=== PATIENT | female | born 1935 | race Caucasian/White ===

== ENCOUNTER 2017-12-16 13:35 | Emergency (ER) | END 2017-12-16 17:18 | disposition home or self-care (01) ==

== ENCOUNTER 2019-02-12 11:37 | Inpatient (IN) | payer MEDICARE, OTHER ==
[~2019-02-12] VITALS: Ht 152.4 cm; Wt 64.0 kg
[~2019-02-12 11:37] MED LIST: AMLO-147 PO; ASPI-650 PO; CALC0.2511 PO; CALC0.255 PO; CARV12.579 PO; CLON-379 PO; GLIP5TAB3 PO; HUM100VI14 SQ; HYDR25TA98 PO; LEVO112C PO; SEVE800T7 PO; SIMV20TA2 PO; [UNRECOGNIZED DRUG - CODE] PO
[2019-02-12] MEDS ORDERED: ONDANSETRON 4 MG INJ IV STA ×2 (12:05→14:41)
[2019-02-12] MEDS ORDERED: SOD CHLORIDE 0.9% 500 ML IV STA (12:05)
[2019-02-12] MEDS ORDERED: PANTOPRAZOLE IV 80 MG in SOD CHLORIDE 0.9% 100 ML IV STA (12:07)
[2019-02-12] MEDS ORDERED: PANTOPRAZOLE IV 80 MG in SOD CHLORIDE 0.9% 100 ML IVPB STA (12:07)
[2019-02-12] MEDS ORDERED: ASPI-817 PO (12:48)
[2019-02-12] MEDS ORDERED: MECL-77 PO (12:48)
[2019-02-12] MEDS ORDERED: AMLO-349 PO (12:48)
[2019-02-12] MEDS ORDERED: ERGO500013 PO (12:49)
[2019-02-12] MEDS ORDERED: CALC500T91 PO (12:50)
[2019-02-12] MEDS ORDERED: SIMV20TA PO (12:51)
[2019-02-12] MEDS ORDERED: SOLI5TAB2 PO (12:51)
[2019-02-12] MEDS ORDERED: NOVO3I SC (12:51)
[2019-02-12] MEDS ORDERED: MIRT30TA5 PO (12:52)
[2019-02-12] MEDS ORDERED: LEVO112T57 PO (12:52)
[2019-02-12] MEDS ORDERED: TRAM50TA PO (12:52)
[2019-02-12] MEDS ORDERED: QUET50TA5 PO (12:53)
[2019-02-12] MEDS ORDERED: GLIP5TAB13 PO (12:54)
[2019-02-12] MEDS ORDERED: CEFEPIME 1GM/50 ML (PMX) 50 ML IVPB ONE (14:00)
--- NOTE | 2019-02-12 14:06 | ERD ---
ER Documentation Chief Complaint Chief Complaint VOMITING FOR THE PAST 2 DAYS WITH BLOOD IN EMESIS HPI This is a 83-year-old female who states she has nausea vomiting for 2 days with red vomit. The patient is a bit of a poor historian but says she has some nausea with vomiting that today he has been pure bright red blood on a few occasions and also has loose stool but no melena or blood in her stool. She is denying any abdominal pain. Patient is a dialysis patient was found to have 100.9 temperature on arrival here however he did go down on its own. ROS All systems reviewed and are negative except as per history of present illness. Medications Home Meds Reported Medications Glipizide* (Glipizide*) 5 Mg Tablet, 5 MG PO AC BREAKFAST, TAB 02/12/19 Quetiapine Fumarate* (Seroquel* XR) 50 Mg Tab.sr.24h, 50 MG PO DAILY, #30 TAB 02/12/19 Mirtazapine* (Mirtazapine*) 30 Mg Tablet, 30 MG PO HS, TAB 02/12/19 Tramadol Hcl* (Ultram*) 50 Mg Tablet, 50 MG PO DAILY PRN for PAIN, TAB 02/12/19 Levothyroxine Sodium* (Levothyroxine Sodium*) 112 Mcg Tablet, 112 MCG PO BEFORE BREAKFAST, #30 TAB 02/12/19 Simvastatin* (Zocor*) 20 Mg Tablet, 20 MG PO QHS, #30 TAB 02/12/19 Solifenacin* (Vesicare*) 5 Mg Tablet, 5 MG PO DAILY, TAB 02/12/19 Insulin Aspart* (Novolog Insulin Pen*) 100 Unit/Ml Soln, 6 UNIT SC WITH MEALS, EA 02/12/19 Calcium Carbonate ([id number]) 500 Mg Tablet, 500 MG PO DAILY, TAB 02/12/19 Ergocalciferol (Vitamin D2) (VITAMIN D2) 50,000 Unit Capsule, 27484 UNIT PO Q7D, CAP 02/12/19 Meclizine Hcl* (Meclizine Hcl*) 25 Mg Tablet, 25 MG PO Q8H PRN for DIZZINESS, TAB 02/12/19 Xjuiegvger-Hkucdslko-VVBG (Exforge HCT) 10-320-25 Mg Tab, 1 EACH PO DAILY, TAB 02/12/19 Aspirin* (Aspirin* EC) 81 Mg Tablet.dr, 81 MG PO DAILY, TAB 02/12/19 Discontinued Reported Medications Insulin Human Isophan/Regular (Novolin 70/30) 100 Units/Ml Susp, 7 UNITS SQ BID 03/13/12 Sevelamer Carbonate* (Renvela*) 800 Mg Tablet, 800 MG PO TID 03/13/12 Glipizide* (Glucotrol*) 5 Mg Tablet, 5 MG PO DAILY 03/13/12 Calcitriol* (Rocaltrol*) 0.25 Mcg Capsule, 0.25 MCG PO DAILY 03/13/12 Captopril (Capoten) 12.5 Mg Tablet, 12.5 MG PO Q8 03/13/12 Levothyroxine Sodium (Tirosint) 112 Mcg Capsule, 112 MCG PO DAILY 10/01/11 Amlodipine Besylate* (Amlodipine Besylate*) 10 Mg Tablet, 10 MG PO DAILY 10/01/11 Calcitriol* (Calcitriol*) 0.25 Mcg Capsule, 0.25 MCG PO DAILY 08/01/11 Hydralazine Hcl* (Hydralazine Hcl*) 25 Mg Tablet, 50 MG PO BID, 0 Refills 08/01/11 Carvedilol* (Carvedilol*) 12.5 Mg Tablet, 12.5 MG PO BID 08/01/11 Aspirin (Aspirin) 81 Mg Tablet, 81 MG PO DAILY 08/01/11 Simvastatin (Simvastatin) 20 Mg Tablet, 20 MG PO QHS 08/01/11 Clonidine Hcl* (Clonidine Hcl*) 0.1 Mg Tab, 0.1 MG PO BID 08/01/11 Allergies Allergies: Coded Allergies: vancomycin (Verified Allergy, Unknown, Rash all over body, 02/12/19) PMhx/Soc History of Surgery: No Anesthesia Reaction: No Hx Neurological Disorder: No Hx Respiratory Disorders: No Hx Cardiac Disorders: No Hx Psychiatric Problems: No Hx Miscellaneous Medical Probl: Yes (ESRD-HD, HTN, Cholesterol) Hx Alcohol Use: No Hx Substance Use: No Hx Tobacco Use: No Smoking Status: Never smoker FmHx Family History: No coronary disease Physical Exam Vitals Vital Signs Date Temp Pulse Resp B/P (MAP) Pulse Ox O2 O2 Flow FiO2 Time Delivery Rate 02/12/19 95 20 126/54 100 Nasal 2.0 14:01 (78) Cannula 02/12/19 94 20 110/49 100 Nasal 13:14 (69) Cannula 02/12/19 97.8 105 18 122/55 97 11:42 (77) Physical Exam Const: Well-developed, well-nourished Head: Atraumatic, normocephalic Eyes: Normal Conjunctiva, PERRLA, EOMI, normal sclera, no nystagmus ENT: Normal External Ears, Nose and Mouth, moist mucus membranes. Neck: Full range of motion. No meningismus, no lymphadenopathy. Resp: Clear to auscultation bilaterally, no wheezing, rhonchi, rales Cardio: Regular rate and rhythm, no murmurs, S1 S2 present Abd: Soft, non tender x 4, non distended. Normal bowel sounds, no guarding or rebound, no pulsitile abdominal masses or bruits Skin: No petechiae or rashes, no ecchymosis , no maculopapular rash Back: No midline or flank tenderness Ext: No cyanosis, or edema, FROM x 4, normal inspection, neurovascularly intact x 4 Neur: Awake and alert, STR 5/5 x 4, sensation intact x 4, no focal findings, cerebellum intact Psych: Normal Mood and Affect Result Diagram: 02/12/19 1220 02/12/19 1220 Results 24 hrs Laboratory Tests Test 02/12/19 12:18 02/12/19 12:20 Urine Color NICOLE Urine Clarity CLOUDY Urine pH 5.0 Urine Specific [place] 1.018 Urine Ketones TRACE mg/dL Urine Nitrite NEGATIVE mg/dL Urine Bilirubin 1+ mg/dL Urine Urobilinogen 2+ mg/dL Urine Leukocyte Esterase 2+ Kareem/ul Urine Microscopic RBC 1 /HPF Urine Microscopic WBC 90 /HPF Urine Squamous Epithelial Cells FEW /HPF Urine Bacteria FEW /HPF Urine Mucus FEW /HPF Urine Hemoglobin 1+ mg/dL Urine Glucose NEGATIVE mg/dL Urine Total Protein 3+ mg/dl White Blood Count 12.7 10^3/ul Red Blood Count 3.63 10^6/ul Hemoglobin 10.4 g/dl Hematocrit 34.1 % Mean Corpuscular Volume 93.9 fl Mean Corpuscular Hemoglobin 28.7 pg Mean Corpuscular Hemoglobin Concent 30.5 g/dl Red Cell Distribution Width 15.6 % Platelet Count 339 10^3/UL Mean Platelet Volume 10.4 fl Immature Granulocytes % 0.600 % Neutrophils % 80.4 % Lymphocytes % 7.5 % Monocytes % 10.3 % Eosinophils % 0.6 % Basophils % 0.6 % Nucleated Red Blood Cells % 0.0 /100WBC Immature Granulocytes # 0.080 10^3/ul Neutrophils # 10.2 10^3/ul Lymphocytes # 1.0 10^3/ul Monocytes # 1.3 10^3/ul Eosinophils # 0.1 10^3/ul Basophils # 0.1 10^3/ul Nucleated Red Blood Cells # 0.0 10^3/ul Prothrombin Time 13.7 Sec Prothrombin Time Ratio 1.1 INR International Normalized Ratio 1.04 Activated Partial Thromboplast Time 25.3 Sec Sodium Level 148 mmol/L Potassium Level 3.6 mmol/L Chloride Level 95 mmol/L Carbon Dioxide Level 38 mmol/L Anion Gap 15 Blood Urea Nitrogen 57 mg/dl Creatinine 4.63 mg/dl Est Glomerular Filtrat Rate mL/min mL/min Glucose Level 133 mg/dl Calcium Level 9.8 mg/dl Total Bilirubin 0.3 mg/dl Direct Bilirubin 0.00 mg/dl Indirect Bilirubin 0.3 mg/dl Aspartate Amino Transf (AST/SGOT) 23 IU/L Alanine Aminotransferase (ALT/SGPT) 16 IU/L Alkaline Phosphatase 73 IU/L Total Protein 7.5 g/dl Albumin 3.4 g/dl Globulin 4.10 g/dl Albumin/Globulin Ratio 0.82 Lipase 13 U/L Current Medications Medications Dose Sig/Tom Start Time Status Last (Trade) Ordered Route PRN Stop Time Admin Dose Reason Admin Sodium 500 ml @ Q1H STAT 02/12/19 DC 02/12/19 Chloride 500 mls/hr IV 12:05 12:27 02/12/19 13:04 Ondansetron 4 mg ONCE STAT 02/12/19 DC 02/12/19 HCl (Zofran IV 12:05 12:27 Inj) 02/12/19 12:08 Pantoprazole 100 ml @ ONCE STAT 02/12/19 DC 02/12/19 80 mg/Sodium 400 mls/hr IVPB 12:07 13:13 Chloride 02/12/19 12:21 Pantoprazole 100 ml @ ONCE STAT 02/12/19 02/12/19 80 mg/Sodium 10 mls/hr IV 12:07 13:13 Chloride 02/12/19 22:06 Cefepime HCl 50 ml @ ONCE ONCE 02/12/19 02/12/19 100 mls/hr IVPB 14:00 13:59 02/12/19 14:29 Procedures/MDM I did draw blood cultures and give a dose of cefepime. The patient does have UTI and the small amount of urine that she does make. She was started on Protonix IV bolus and drip.. I spoke with her primary care physician said to admit her to the hospital and consult GI. We will admit for upper GI bleed, UTI Departure Diagnosis: Primary Impression: Upper GI bleed Additional Impression: UTI (urinary tract infection) Urinary tract infection type: acute cystitis Hematuria presence: without hematuria Qualified Codes: N30.00 - Acute cystitis without hematuria Condition: Stable SANDEEP APARICIO DO February 12, 2019 14:06
[2019-02-12] MEDS ORDERED: SOD CHLORIDE 0.9% 1,000 ML IV SCH (14:07)
[2019-02-12] MEDS ORDERED: ONDANSETRON 4 MG INJ IV PRN ×2 (14:30→16:30)
[2019-02-12] MEDS ORDERED: ACETAMINOPHEN 325 MG TAB PO PRN (14:30)
[2019-02-12] MEDS ORDERED: morphine 4 MG/ML VIAL IV STA (14:41)
[2019-02-12 15:35] VITALS: BP 122/58; PULSE 91
[2019-02-12 15:41] VITALS: Ht 152.4 cm; Wt 64.0 kg
[2019-02-12 15:46] VITALS: PULSE 92
[2019-02-12 16:13] VITALS: PULSE 91
[2019-02-12] MEDS ORDERED: DEXTROSE 50% 50 ML SYRINGE IV PRN ×2 (17:00)
[2019-02-12] MEDS ORDERED: GLUCOSE GEL 15 GRAM TUBE BUCCAL PRN (17:00)
[2019-02-12] MEDS ORDERED: GLUCOSE GEL 15 GRAM TUBE PO PRN ×2 (17:00)
[2019-02-12] MEDS ORDERED: GLUCAGON 1 MG INJ IM PRN (17:00)
[2019-02-12] MEDS: INSULIN ASPART [NOVOLOG] 3 ML PEN SC SCH ×2 (18:00→21:00)
--- NOTE | 2019-02-12 18:41 | CONS ---
DATE OF ADMISSION: 02/12/2019 DATE OF CONSULTATION: TYPE OF CONSULTATION: Gastroenterology. HISTORY OF PRESENT ILLNESS: The patient is an 83-year-old female who came to the hospital complainin g of nausea and vomiting. This has been going on for 2 days. Vomitus was coffee-ground colored mate rial and black color. She never drinks coffee. The patient had a loose stool, but no melena, no hem atochezia. She has had some abdominal pain as per the son. 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 REVIEW OF SYSTEMS: Otherwise negative. MEDICATIONS: Reviewed. The patient was on; 1. Glipizide. 2. Aspirin. 3. Amlodipine. 4. Ultram. 5. Insulin. 6. L-thyroxine. 7. Hydralazine. 8. Simvastatin. 9. Clonidine. ALLERGIES: NONE. PAST MEDICAL HISTORY: End-stage renal disease, hypertension, high cholesterol. The patient is on di alysis. SOCIAL HISTORY: Does not smoke or drink. PHYSICAL EXAMINATION: GENERAL: Moderately built, nourished, not in distress. VITAL SIGNS: Stable. HEENT: Unremarkable. NECK: Supple. No thyromegaly, no lymphadenopathy. CARDIOVASCULAR: No murmur, gallop or click. LUNGS: Clear. ABDOMEN: Benign. EXTREMITIES: No edema. On the left arm, she has got a shunt. CENTRAL NERVOUS SYSTEM: Grossly within normal limits. LABORATORY DATA: Potassium was 3.6, creatinine 4.63. Rest of the LFTs within normal limits. Hemato crit is 34, WBC is 12.7. IMPRESSION: 1. Upper gastrointestinal bleeding. 2. Diabetes mellitus. 3. Renal failure. 4. Hypertension. PLAN: Continue PPI. We will proceed with EGD in a.m. I discussed with the son and has agreed for t he procedure. In the interim, monitor H and H closely. Thank you, Dr. Cohen for your kind referral. Dictated By: SHA MANN/CORAZON Conf#: [id number] DID#: [id number] CC: ROCIO COHEN MD;*EndCC*
[2019-02-12 19:48] VITALS: BP 116/57; PULSE 84
[2019-02-12 20:00] VITALS: PULSE 83
[2019-02-12 23:51] VITALS: BP 110/53; PULSE 84
[2019-02-13] VITALS (18 sets, daily range): BP systolic 94–126; BP diastolic 43–62; PULSE 84–160; RESP 18–24
[2019-02-13] MEDS: INSULIN ASPART [NOVOLOG] 3 ML PEN SC SCH ×6 (01:00→21:46)
[2019-02-13] MEDS: PANTOPRAZOLE 40 MG INJ IV SCH (05:36)
--- NOTE | 2019-02-13 07:52 | PREAC ---
Date/Time of Note Date/Time of Note DATE: 02/13/19 TIME: 07:49 Anesthesia Eval and Record Evaluation Time Pre-Procedure Interview DATE: 02/13/19 TIME: 07:49 Age 83 Sex female NPO: 8 hrs Preoperative diagnosis GI bleeding Planned procedure EGD Past Medical History Past Medical History: Includes Cardio: Dyslipidemia Endo: Diabetes, Hypothyroid Pulm: COPD Renal: ESRD on dialysis, HD last: Surgery & Anesthesia Issues No known issue Meds Anticoagulation: Yes Beta Jeffrey within 24 hr: No Reason Beta Jeffrey not given: Pt. not on B-Jeffrey Reported Medications Glipizide* (Glipizide*) 5 Mg Tablet, 5 MG PO AC BREAKFAST, TAB 02/12/19 Quetiapine Fumarate* (Seroquel* XR) 50 Mg Tab.sr.24h, 50 MG PO DAILY, #30 TAB 02/12/19 Mirtazapine* (Mirtazapine*) 30 Mg Tablet, 30 MG PO HS, TAB 02/12/19 Tramadol Hcl* (Ultram*) 50 Mg Tablet, 50 MG PO DAILY PRN for PAIN, TAB 02/12/19 Levothyroxine Sodium* (Levothyroxine Sodium*) 112 Mcg Tablet, 112 MCG PO BEFORE BREAKFAST, #30 TAB 02/12/19 Simvastatin* (Zocor*) 20 Mg Tablet, 20 MG PO QHS, #30 TAB 02/12/19 Solifenacin* (Vesicare*) 5 Mg Tablet, 5 MG PO DAILY, TAB 02/12/19 Insulin Aspart* (Novolog Insulin Pen*) 100 Unit/Ml Soln, 6 UNIT SC WITH MEALS, EA 02/12/19 Calcium Carbonate ([id number]) 500 Mg Tablet, 500 MG PO DAILY, TAB 02/12/19 Ergocalciferol (Vitamin D2) (VITAMIN D2) 50,000 Unit Capsule, 68817 UNIT PO Q7D, CAP 02/12/19 Meclizine Hcl* (Meclizine Hcl*) 25 Mg Tablet, 25 MG PO Q8H PRN for DIZZINESS, TAB 02/12/19 Kxnbwayszc-Njcdkadej-TKFZ (Exforge HCT) 10-320-25 Mg Tab, 1 EACH PO DAILY, TAB 02/12/19 Aspirin* (Aspirin* EC) 81 Mg Tablet.dr, 81 MG PO DAILY, TAB 02/12/19 Discontinued Reported Medications Insulin Human Isophan/Regular (Novolin 70/30) 100 Units/Ml Susp, 7 UNITS SQ BID 03/13/12 Sevelamer Carbonate* (Renvela*) 800 Mg Tablet, 800 MG PO TID 03/13/12 Glipizide* (Glucotrol*) 5 Mg Tablet, 5 MG PO DAILY 03/13/12 Calcitriol* (Rocaltrol*) 0.25 Mcg Capsule, 0.25 MCG PO DAILY 03/13/12 Captopril (Capoten) 12.5 Mg Tablet, 12.5 MG PO Q8 03/13/12 Levothyroxine Sodium (Tirosint) 112 Mcg Capsule, 112 MCG PO DAILY 10/01/11 Amlodipine Besylate* (Amlodipine Besylate*) 10 Mg Tablet, 10 MG PO DAILY 10/01/11 Calcitriol* (Calcitriol*) 0.25 Mcg Capsule, 0.25 MCG PO DAILY 08/01/11 Hydralazine Hcl* (Hydralazine Hcl*) 25 Mg Tablet, 50 MG PO BID, 0 Refills 08/01/11 Carvedilol* (Carvedilol*) 12.5 Mg Tablet, 12.5 MG PO BID 08/01/11 Aspirin (Aspirin) 81 Mg Tablet, 81 MG PO DAILY 08/01/11 Simvastatin (Simvastatin) 20 Mg Tablet, 20 MG PO QHS 08/01/11 Clonidine Hcl* (Clonidine Hcl*) 0.1 Mg Tab, 0.1 MG PO BID 08/01/11 Current Medications Pantoprazole (Protonix Iv) 40 mg DAILY@06 IV Last administered on 02/13/19at 05:36; Admin Dose 40 MG; Start 02/13/19 at 06:00 Ondansetron HCl (Zofran Inj) 4 mg Q6H PRN IV NAUSEA AND/OR VOMITING; Start 02/12/19 at 16:30 Insulin Aspart (Novolog Insulin Pen) NOVOLOG *MODERATE* ALGORI... Q4 SC Last administered on 02/12/19at 18:00; Admin Dose 4 UNIT; Start 02/12/19 at 17:00 Miscellaneous Information 1 ea NOTE XX ; Start 02/12/19 at 17:00 Glucose (Glutose) 15 gm Q15M PRN PO DECREASED GLUCOSE; Start 02/12/19 at 17:00 Glucose (Glutose) 22.5 gm Q15M PRN PO DECREASED GLUCOSE; Start 02/12/19 at 17:00 Dextrose (D50w Syringe) 25 ml Q15M PRN IV DECREASED GLUCOSE; Start 02/12/19 at 17:00 Dextrose (D50w Syringe) 50 ml Q15M PRN IV DECREASED GLUCOSE; Start 02/12/19 at 17:00 Glucagon (Glucagen) 1 mg Q15M PRN IM DECREASED GLUCOSE; Start 02/12/19 at 17:00 Glucose (Glutose) 15 gm Q15M PRN BUCCAL DECREASED GLUCOSE; Start 02/12/19 at 17:00 Meds reviewed: Yes Allergies Coded Allergies: vancomycin (Verified Allergy, Unknown, Rash all over body, 02/12/19) Allergies Reviewed: Yes Labs/Studies Labs Reviewed: Reviewed by anesthesiologist Result Diagram: 02/13/19 0701 02/12/19 1220 Laboratory Tests 02/12/19 12:20 02/13/19 07:01 test: N/A Studies: ECG Pre-procedure Exam Last vitals Vital Signs Date Temp Pulse Resp B/P (MAP) Pulse Ox O2 O2 Flow FiO2 Time Delivery Rate 02/13/19 98.0 88 105/54 94 Nasal 2.0 04:00 (71) Cannula 02/12/19 20 14:01 Airway: Adequate mouth opening, Adequate thyromental dist Mallampati: Mallampati II Teeth: Normal Lung: Normal Heart: Normal ASA Physical Status ASA physical status: 4 Emergency: None Planned Anesthetic General/MAC: MAC Planned Pain Management Parenteral pain med Pre-operative Attestations Prior to commencing anesthesia and surgery, the patient was re-evaluated, there was verification of: *The patient's identity *The results of appropriate recent lab work and preoperative vital signs *The above evaluation not changing prior to induction *Anesthetic plan, risk benefits, alternative and complications discussed with patient/family; questions answered; patient/family understands, accepts and wishes to proceed. MISTY ANNA MD February 13, 2019 07:52
[2019-02-13] MEDS ORDERED: PROPOFOL 20 ML ONE (07:58)
[2019-02-13] MEDS ORDERED: LIDOCAINE 2% (SDV) 5 ML INJ ONE (08:19)
--- NOTE | 2019-02-13 08:19 | HPN ---
Date/Time of Note Date/Time of Note DATE: 02/13/19 TIME: 08:19 Interval H&P Admission Note Pt. seen H&P reviewed: No system changes SHA ROSS MD February 13, 2019 08:19
--- NOTE | 2019-02-13 08:31 | PAC ---
Date/Time of Note Date/Time of Note DATE: 02/13/19 TIME: 08:29 Post-Anesthesia Notes Post-Anesthesia Note Last documented vital signs Vital Signs Date Temp Pulse Resp B/P (MAP) Pulse Ox O2 O2 Flow FiO2 Time Delivery Rate 02/13/19 99 08:15 02/13/19 98.0 105/54 94 Nasal 2.0 04:00 (71) Cannula 02/12/19 20 14:01 Activity: WNL Respiratory function: WNL Cardiovascular function: WNL Mental status: Baseline Pain reasonably controlled: Yes Hydration appropriate: Yes Nausea/Vomiting absent: Yes Comments BP:97/62, P:94, Spo2:100%, T:98,2 MISTY ANNA MD February 13, 2019 08:31
--- NOTE | 2019-02-13 09:20 | CONS ---
DATE OF ADMISSION: 02/12/2019 DATE OF CONSULTATION: 02/13/2019 TYPE OF CONSULTATION: Nephrology. PHYSICIAN REQUESTING CONSULT: Caden Cohen MD HISTORY OF PRESENT ILLNESS: This is an 83-year-old female with a past medical history of end-stage r enal disease on dialysis 3 times weekly, access AV fistula, history of diabetes, history of hypertens ion, history of coronary artery disease, history of mineral bone disorder who [facility] with 2 days of hematemesis. The patient is a poor historian. Per medical records, the pat ient was having bloody emesis. Denied any melena. She denied any abdominal pain. Upon arrival to [facility] Emergency Room, the patient was placed on Protonix drip and admitted to telemetry for evaluation. Overnight, the patient has been stable. There have been no reports of hemoptysis, hematemesis or he matochezia. PAST MEDICAL HISTORY: As stated above, end-stage renal disease, history of hypertension, history of coronary artery disease, history of diabetes, hypothyroidism. PAST SURGICAL HISTORY: Status post AV fistula placement. FAMILY HISTORY: No family history of kidney disease. SOCIAL HISTORY: Does not drink, smoke or do drugs. MEDICATIONS: Have been reviewed. REVIEW OF SYSTEMS: A 14-point review of systems conducted. Pertinent positives stated in HPI, other adan negative. PHYSICAL EXAMINATION: VITAL SIGNS: Blood pressure is 104/54, respirations 16, pulse 115, temperature 98.0. HEENT: Head is normocephalic. NECK: Supple. HEART: Regular rate. LUNGS: Show diminished breath sounds at the base. ABDOMEN: Soft, nontender to palpation without rebound or guarding. EXTREMITIES: Negative for clubbing, cyanosis, no edema. DERMATOLOGIC: No rashes. MUSCULOSKELETAL: No joint effusion. The patient has positive AV fistula on the left upper extremity , positive thrill and bruit. NEUROLOGIC: No focal deficits. LABORATORY DATA: Has been reviewed. ASSESSMENT AND PLAN: This is an 83-year-old female who presents with: 1. End-stage renal disease. The patient is on dialysis Friday, , Friday with access AV f istula. Plan for hemodialysis today. We will dialyze for 3 hours 4k bath, calcium 2.5. 2. Anemia. Monitor hemoglobin and hematocrit levels. Will give Epogen as needed. 3. Mineral bone disorder, monitor calcium and phosphorus levels. 4. Possible GI bleed. 5. Anemia with possible gastrointestinal bleed. The patient is on Protonix drip. We will follow up with gastroenterology, pending possible EGD. Will give Epogen as needed. 6. Mineral bone disorder, monitor calcium and phosphatase levels. 7. History of coronary artery disease. Continue medical management. 8. Hypernatremia. Continue patient on hypertonic fluid. 9. Urinary tract infection. Continue current antibiotic regimen. Thank you, Dr. Cohen, for this interesting consult. It will be a pleasure to follow patient with you throughout the hospital course. Dictated By: TRISTAN OKEEFE DO NR/NTS Conf#: [id number] DID#: [id number] CC: CADEN COHEN MD;*EndCC*
--- NOTE | 2019-02-13 09:38 | HP ---
Date/Time of Note Date/Time of Note DATE: 02/13/19 TIME: 09:29 Assessment/Plan VTE Prophylaxis Risk score (from [facility])>0 risk: 5 SCD applied (from [facility]): Yes SCD contraindicated: other Pharmacological prophylaxis: other Pharm contraindication: bleeding Lines/Catheters IV Catheter Type (from [facility]): Peripheral IV Reason Cath still needed: urinary retention Assessment/Plan Assessment/Plan 1.Upper gi BLEEDING 2.CKD on HD. sceduled HD 02/14/2019 3.S/P TAVR 4.DM type 2 5.HTN with chf 6.Anemia of chronic disease 7.Hx of cva 8.Postcva and senile dementia 9.MD 10.Urinary incontinence 11.Dyslipidemia 12.HX of falls 13.Severe muscular waisting 14.PAD Result Diagram: 02/13/19 0701 02/13/19 0701 Results 24hrs Laboratory Tests Test 02/12/19 12:18 02/12/19 12:20 02/12/19 17:21 02/12/19 19:11 Urine Color NICOLE Urine Clarity CLOUDY A Urine pH 5.0 Urine Specific 1.018 [place] Urine Ketones TRACE A Urine Nitrite NEGATIVE Urine Bilirubin 1+ H Urine Urobilinogen 2+ H Urine Leukocyte 2+ H Esterase Urine Microscopic 1 RBC Urine Microscopic 90 H WBC Urine Squamous FEW Epithelial Cells Urine Bacteria FEW A Urine Mucus FEW A Urine Hemoglobin 1+ H Urine Glucose NEGATIVE Urine Total Protein 3+ H White Blood Count 12.7 #H Red Blood Count 3.63 L Hemoglobin 10.4 L Hematocrit 34.1 L Mean Corpuscular 93.9 Volume Mean Corpuscular 28.7 L Hemoglobin Mean Corpuscular 30.5 L Hemoglobin Concent Red Cell 15.6 H Distribution Width Platelet Count 339 # Mean Platelet Volume 10.4 Immature 0.600 H Granulocytes % Neutrophils % 80.4 H Lymphocytes % 7.5 L Monocytes % 10.3 Eosinophils % 0.6 Basophils % 0.6 Nucleated Red Blood 0.0 Cells % Immature 0.080 H Granulocytes # Neutrophils # 10.2 H Lymphocytes # 1.0 Monocytes # 1.3 H Eosinophils # 0.1 Basophils # 0.1 Nucleated Red Blood 0.0 Cells # Prothrombin Time 13.7 Prothrombin Time 1.1 Ratio INR International 1.04 Normalized Ratio Activated 25.3 Partial Thromboplast Time Sodium Level 148 H Potassium Level 3.6 Chloride Level 95 L Carbon Dioxide Level 38 H Anion Gap 15 H Blood Urea Nitrogen 57 H Creatinine 4.63 H Est Glomerular Filtrat Rate mL/min Glucose Level 133 Calcium Level 9.8 Total Bilirubin 0.3 Direct Bilirubin 0.00 Indirect Bilirubin 0.3 Aspartate Amino 23 Transf (AST/SGOT) Alanine 16 Aminotransferase (AL T/SGPT) Alkaline Phosphatase 73 Total Protein 7.5 Albumin 3.4 Globulin 4.10 H Albumin/Globulin 0.82 Ratio Lipase 13 L Bedside Glucose 205 156 Test 02/12/19 20:16 02/13/19 01:58 02/13/19 05:27 02/13/19 07:01 Bedside Glucose 108 79 119 White Blood Count 7.9 # Red Blood Count 3.24 L Hemoglobin 9.2 L Hematocrit 31.1 L Mean Corpuscular 96.0 Volume Mean Corpuscular 28.4 L Hemoglobin Mean Corpuscular 29.6 L Hemoglobin Concent Red Cell 15.9 H Distribution Width Platelet Count 239 # Mean Platelet Volume 10.4 Immature 1.000 H Granulocytes % Neutrophils % Lymphocytes % Monocytes % Eosinophils % Basophils % Nucleated Red Blood 0.0 Cells % Immature 0.080 H Granulocytes # Neutrophils # Lymphocytes # Monocytes # Eosinophils # Basophils # Nucleated Red Blood Cells # Sodium Level 148 H Potassium Level 4.2 Chloride Level 102 Carbon Dioxide Level 28 # Anion Gap 18 H Blood Urea Nitrogen 73 H Creatinine 5.19 H Est Glomerular Filtrat Rate mL/min Glucose Level 157 Calcium Level 8.5 Total Bilirubin 0.2 Direct Bilirubin 0.00 Indirect Bilirubin 0.2 Aspartate Amino 24 Transf (AST/SGOT) Alanine 25 Aminotransferase (AL T/SGPT) Alkaline Phosphatase 56 Total Protein 6.5 # Albumin 3.0 L Globulin 3.50 H Albumin/Globulin 0.85 Ratio Test 02/13/19 09:26 Bedside Glucose 168 HPI/ROS Admit Date/Time Admit Date/Time February 12, 2019 at 14:07 Hx of Present Illness bloody vomitus x 2 days. PMH/Family/Social Past Medical History Medications Current Medications Pantoprazole (Protonix Iv) 40 mg DAILY@06 IV Last administered on 02/13/19at 05:36; Admin Dose 40 MG; Start 02/13/19 at 06:00 Ondansetron HCl (Zofran Inj) 4 mg Q6H PRN IV NAUSEA AND/OR VOMITING; Start 02/12/19 at 16:30 Insulin Aspart (Novolog Insulin Pen) NOVOLOG *MODERATE* ALGORI... Q4 SC Last administered on 02/12/19at 18:00; Admin Dose 4 UNIT; Start 02/12/19 at 17:00 Miscellaneous Information 1 ea NOTE XX ; Start 02/12/19 at 17:00 Glucose (Glutose) 15 gm Q15M PRN PO DECREASED GLUCOSE; Start 02/12/19 at 17:00 Glucose (Glutose) 22.5 gm Q15M PRN PO DECREASED GLUCOSE; Start 02/12/19 at 17:00 Dextrose (D50w Syringe) 25 ml Q15M PRN IV DECREASED GLUCOSE; Start 02/12/19 at 17:00 Dextrose (D50w Syringe) 50 ml Q15M PRN IV DECREASED GLUCOSE; Start 02/12/19 at 17:00 Glucagon (Glucagen) 1 mg Q15M PRN IM DECREASED GLUCOSE; Start 02/12/19 at 17:00 Glucose (Glutose) 15 gm Q15M PRN BUCCAL DECREASED GLUCOSE; Start 02/12/19 at 17:00 Coded Allergies: vancomycin (Verified Allergy, Unknown, Rash all over body, 02/12/19) Social History Smoking Status: Never smoker Exam/Review of Systems Vital Signs Vitals Vital Signs Date Temp Pulse Resp B/P (MAP) Pulse Ox O2 O2 Flow FiO2 Time Delivery Rate 02/13/19 Nasal 3.0 09:04 Cannula 02/13/19 98 24 96/43 (60) 94 08:56 02/13/19 98.0 04:00 Intake and Output 02/12/19 02/12/19 02/13/19 1414:59 22:59 06:59 IntakeIntake Total 100 ml BalanceBalance 100 ml ROCIO COHEN MD February 13, 2019 09:38
--- NOTE | 2019-02-13 12:55 | CONS ---
DATE OF ADMISSION: 02/12/2019 DATE OF CONSULTATION: 02/13/2019 TYPE OF CONSULTATION: Pulmonary. REASON FOR CONSULTATION: Abnormal x-ray and shortness of breath. Thank you, Dr. Cohen, for this consultation. HISTORY OF PRESENT ILLNESS: This is an 83-year-old lady with multiple medical problems including end -stage renal failure, hemodialysis, admitted for evaluation of upper GI bleeding and anemia, found to have incidental left lower lobe 1.4 cm lung lesion. The patient is a poor historian, but denies any cough, fever, chills, chest pain or palpitations. She is a lifelong nonsmoker. Denies any recent t ravel history. PAST MEDICAL HISTORY: 1. End-stage renal failure, on hemodialysis. 2. Essential hypertension. 3. Anemia of chronic disease. 4. History of cerebrovascular accident. 5. Dementia. 6. Status post TAVR. PHYSICAL EXAMINATION: GENERAL: Well-nourished, well-developed lady, comfortable at rest, talking in full and complete sent ences. VITAL SIGNS: Currently afebrile, pulse is 100, blood pressure 120/59, O2 saturation 95% on 3 L nasal cannula. NECK: Supple. No JVD or lymphadenopathy. CARDIAC: S1, S2. No added sounds or murmurs. CHEST: Diminished air entry bilaterally. ABDOMEN: Soft, nontender. No guarding or rebound. EXTREMITIES: No cyanosis, clubbing or edema. NEUROLOGIC: Grossly intact. No focal deficits. LABORATORY DATA: White count 7.9, hemoglobin 9.2, platelets 239. BUN 73, creatinine 5.19. INR 1.06 . Chest x-ray findings demonstrated. IMPRESSION AND PLAN: 1. Upper gastrointestinal bleed, status post endoscopy. 2. Anemia of chronic disease. 3. End-stage renal failure on hemodialysis. 4. Incidental finding of left lower lobe mass not seen on x-ray from 11/2017. The patient will require: 1. CT chest. 2. Hemodialysis. 3. Serial hemoglobin and hematocrit. 4. Deep vein thrombosis and gastrointestinal prophylaxis. 5. Hemodialysis as tolerated. Dictated By: JONATHAN VANCE MD SV/[facility] Conf#: [id number] DID#: [id number] CC: ROCIO COHEN MD;*EndCC*
--- NOTE | 2019-02-13 19:40 | CONS ---
DATE OF ADMISSION: 02/12/2019 DATE OF CONSULTATION: 02/13/2019 CARDIOLOGY CONSULTATION REFERRING PHYSICIAN: Dr. Cohen REASON FOR EVALUATION: History of BEST, history of hypertension, preoperative assessment. HISTORY OF PRESENT ILLNESS: Ms. Viera is a pleasant 83-year-old woman with history of dementia, hence not a very good historian. History of hypertension, dyslipidemia, history of coronary artery d isease, history of BEST, history of end-stage renal disease on hemodialysis who comes to the hospital now for evaluation of upper GI bleeding with incidental left lower lobe lung lesion. I have been as ked to see patient in consultation for preoperative assessment for likely EGD and colonoscopy which w as already done. I was also asked to follow the patient concurrently for her valvular disease. Curr ently, the patient is in mild degree of heart failure. She does not report any chest pain. Her hemo globin is fairly stable at 9.2. I think for now, conservative therapy is expected. Will continue to adjust medicines as indicated and remove fluid with hemodialysis. PAST MEDICAL HISTORY: 1. Hypertension. 2. Dyslipidemia. 3. Coronary artery disease. 4. History of BEST. 5. History of end-stage renal disease on hemodialysis. 6. History of GI bleed. ALLERGIES: THE PATIENT IS ALLERGIC TO VANCOMYCIN. SOCIAL HISTORY: The patient does not smoke, does not drink, does not use drugs. FAMILY HISTORY: Positive for diabetes and hypertension. MEDICATIONS: 1. Protonix. 2. Insulin on a sliding scale. 3. Ondansetron. REVIEW OF SYSTEMS: CONSTITUTIONAL: No fevers, no chills, no recent weight change. HEENT: No change in vision or hearing. CARDIAC: Chest pain reported now. RESPIRATORY: No shortness of breath. GASTROINTESTINAL: GI bleeding ____. NEUROLOGIC: History of dementia. PSYCHIATRIC: History of depression. PHYSICAL EXAMINATION: VITAL SIGNS: Temperature is 98.3, heart rate is 97, blood pressure is 105/53. GENERAL: She is a well-nourished woman in no acute distress, oriented x1, not really aware of her me dical conditions. HEAD: Normocephalic, atraumatic. Eyes anicteric. NECK: Supple. JVD 6 cm. No lymphadenopathy. HEART: Regular, soft holosystolic murmur. She also has a holosystolic murmur at the base. LUNGS: Coarse at base. ABDOMEN: Distended, bowel sounds are present. There is no hepatosplenomegaly. GENITOURINARY: Intact. EXTREMITIES: Shows 1+ edema. IMAGING: Chest x-ray yesterday shows cardiomegaly with aortic sclerosis. There is an incidental fin ding of 1.4 cm long. There is a minimal congestive changes on the chest x-ray. LABORATORY DATA: White blood cells 7.9, hemoglobin 9.2, platelets 239. INR is 1.4. Sodium 140, pot assium 4.2, BUN 73, creatinine 5.9. ASSESSMENT AND PLAN: 1. History of BETS. The patient with history of BEST appears to be fairly clinically stable on exam ination. Continue to monitor now. 2. Congestive heart failure. The patient with heart failure, probably systolic, acute on chronic. Continue to remove fluid with hemodialysis for anticoagulation. 3. Anemia. History of suspected GI bleed. Full anticoagulation has been stopped. Continue to scooter tor clinically now. 4. Chest pain. Troponins are negative. We will follow expectantly. 5. Hypertension. Blood pressure fairly well controlled now. We will allow current regimen, patient is not on any blood pressure medication at this particular moment. 6. Diabetes. Continue diabetic optimization and care. We will continue to keep euvolemic. I would like to thank Dr. Cohen for referring this patient for my evaluation. Dictated By: ELISABETH DAILEY MD ML/NTS Conf#: [id number] DID#: [id number] CC: ROCIO COHEN MD;*EndCC*
[2019-02-14] VITALS (24 sets, daily range): BP systolic 106–138; BP diastolic 53–80; PULSE 61–176; RESP 18–20
[2019-02-14] MEDS: INSULIN ASPART [NOVOLOG] 3 ML PEN SC SCH ×6 (01:00→21:15)
[2019-02-14] MEDS: PANTOPRAZOLE 40 MG INJ IV SCH (05:22)
[2019-02-14] MEDS ORDERED: EPOETIN ALFA-EPBX (NON-ESRD 10,000 UNIT/ML VIAL SC ONE (08:30)
[2019-02-14] MEDS: ACETAMINOPHEN 500 MG TAB PO PRN (10:15)
[2019-02-14] MEDS ORDERED: morphine 2 MG INJ IV ONE (11:00)
--- NOTE | 2019-02-14 11:40 | CONS ---
Consult Date/Type/Reason Admit Date/Time February 12, 2019 at 14:07 Initial Consult Date Type of Consult Pulmonary Date/Time of Note DATE: 02/14/19 TIME: 11:39 Subjective No significant changes. Patient having hemodialysis this morning no respiratory distress. CT chest noted no definitive mass in left lung. Objective Vital Signs Date Temp Pulse Resp B/P (MAP) Pulse Ox O2 O2 Flow FiO2 Time Delivery Rate 02/14/19 86 11:00 02/14/19 18 135/78 98 Nasal 2.0 10:30 (97) Cannula 02/14/19 98.1 07:38 Intake and Output 02/13/19 02/13/19 02/14/19 1515:00 23:00 07:00 IntakeIntake Total 0 ml 400 ml 100 ml OutputOutput Total 0 ml 0 ml BalanceBalance 0 ml 400 ml 100 ml Exam GENERAL: Elderly [place] lady no respiratory distress VITAL SIGNS: per chart NECK: Supple. No JVD or lymphadenopathy. CARDIAC EXAM: S1, S2. No added sounds or murmurs. CHEST: clear bilaterally, No added sounds, rales or wheezes ABDOMEN: Soft, nontender. No guarding or rebound. EXTREMITIES: No cyanosis, clubbing or edema. NEUROLOGIC: Generalized weakness. No focal deficits. Results/Medications Result Diagram: 02/14/19 0556 02/14/19 0556 Results 24 hrs Laboratory Tests Test 02/13/19 12:53 02/13/19 16:51 02/13/19 20:33 02/14/19 00:51 Bedside Glucose 180 152 156 128 Test 02/14/19 05:25 02/14/19 05:56 02/14/19 08:21 Bedside Glucose 173 139 White Blood Count 11.4 #H Red Blood Count 3.03 L Hemoglobin 8.6 L Hematocrit 28.4 L Mean Corpuscular 93.7 Volume Mean Corpuscular 28.4 L Hemoglobin Mean Corpuscular 30.3 L Hemoglobin Concent Red Cell 15.7 H Distribution Width Platelet Count 205 Mean Platelet Volume 10.6 H Immature 1.600 H Granulocytes % Neutrophils % Segmented 58 Neutrophils % (Manual) Band Neutrophils % 16 H (Manual) Lymphocytes % Lymphocytes % 17 (Manual) Monocytes % Monocytes % (Manual) 6 Eosinophils % Eosinophils % 3 (Manual) Basophils % Nucleated Red Blood 0.0 Cells % Immature 0.180 H Granulocytes # Neutrophils # Neutrophils # 6.8 (Manual) Band Neutrophils # 1.8 H Lymphocytes (Manual) 1.9 Lymphocytes # Monocytes # Monocytes # (Manual) 0.6 Eosinophils # Basophils # Nucleated Red Blood Cells # Platelet Estimate NORMAL Giant Platelets 1 H Polychromasia 1+ Anisocytosis 1+ Sodium Level 145 H Potassium Level 4.2 Chloride Level 99 Carbon Dioxide Level 29 Anion Gap 17 H Blood Urea Nitrogen 89 H Creatinine 6.15 H Est Glomerular Filtrat Rate mL/min Glucose Level 179 Calcium Level 8.1 L Phosphorus Level 4.3 Magnesium Level 2.4 Medications Current Medications Pantoprazole (Protonix Iv) 40 mg DAILY@06 IV Last administered on 02/14/19at 05:22; Admin Dose 40 MG; Start 02/13/19 at 06:00 Ondansetron HCl (Zofran Inj) 4 mg Q6H PRN IV NAUSEA AND/OR VOMITING; Start 02/12/19 at 16:30 Insulin Aspart (Novolog Insulin Pen) NOVOLOG *MODERATE* ALGORI... Q4 SC Last administered on 02/14/19at 05:39; Admin Dose 2 UNIT; Start 02/12/19 at 17:00 Miscellaneous Information 1 ea NOTE XX ; Start 02/12/19 at 17:00 Glucose (Glutose) 15 gm Q15M PRN PO DECREASED GLUCOSE; Start 02/12/19 at 17:00 Glucose (Glutose) 22.5 gm Q15M PRN PO DECREASED GLUCOSE; Start 02/12/19 at 17:00 Dextrose (D50w Syringe) 25 ml Q15M PRN IV DECREASED GLUCOSE; Start 02/12/19 at 17:00 Dextrose (D50w Syringe) 50 ml Q15M PRN IV DECREASED GLUCOSE; Start 02/12/19 at 17:00 Glucagon (Glucagen) 1 mg Q15M PRN IM DECREASED GLUCOSE; Start 02/12/19 at 17:00 Glucose (Glutose) 15 gm Q15M PRN BUCCAL DECREASED GLUCOSE; Start 02/12/19 at 17:00 Acetaminophen (Tylenol Tab) 500 mg Q8H PRN PO MILD PAIN(1-3)OR ELEVATED TEMP Last administered on 02/14/19at 10:15; Admin Dose 500 MG; Start 02/14/19 at 10:00 Assessment/Plan Hospital Course (Demo Recall) IMPRESSION 1. Upper gastrointestinal bleed, status post endoscopy. 2. Anemia of chronic disease. 3. End-stage renal failure on hemodialysis. 4. Incidental finding of left lower lobe mass not seen on x-ray from 11/2017. Not seen on chest CT. Plan 1. Aspiration precautions 2. Hemodialysis. 3. Serial hemoglobin and hematocrit. 4. Deep vein thrombosis and gastrointestinal prophylaxis. 5. Hemodialysis as tolerated. 6. Encourage out of bed JONATHAN VANCE MD, [facility] February 14, 2019 11:40
--- NOTE | 2019-02-14 12:05 | CONS ---
Consult Date/Type/Reason Admit Date/Time February 12, 2019 at 14:07 Initial Consult Date Date/Time of Note DATE: 02/14/19 TIME: 12:02 Subjective NO acute events - BP in good range - pt on HD -reportted to have NSVT 30 beats - I reviewed tele, SVT, likely a. tach vs a. fib with RVR - stable now - will foll ow. ROS: No fever, no chills, no nausea, no vomiting, no diarrhea/constipation No recent weight changes No chest pain, no PND, no orthopnea - mild SOB No dizziness, blurred vision No thirst, no heat or cold intolerance Objective Vitals Vital Signs Date Temp Pulse Resp B/P (MAP) Pulse Ox O2 O2 Flow FiO2 Time Delivery Rate 02/14/19 98.0 85 19 121/56 97 11:44 (77) 02/14/19 Nasal 2.0 10:30 Cannula Intake and Output 02/13/19 02/13/19 02/14/19 1515:00 23:00 07:00 IntakeIntake Total 0 ml 400 ml 100 ml OutputOutput Total 0 ml 0 ml BalanceBalance 0 ml 400 ml 100 ml Exam General: WN/WD/NAD, AOx 1-2 HEENT: Unicetric/atraumatic/EOMI ( follow commands) NECK: JVD elevated, no thyromegaly Lymph: no lymphadenopathy HEART: regular with no S3, II/ systolic murmur at apex, BEST LUNGS: Coarse sounds ABD: soft, NT, ND, +BS : Intact Neuro: non focal SKIN: chronic changes EXT: trace edema Results/Medications Result Diagram: 02/14/19 0556 02/14/19 0556 Results 24 hrs Laboratory Tests Test 02/13/19 12:53 02/13/19 16:51 02/13/19 20:33 02/14/19 00:51 Bedside Glucose 180 152 156 128 Test 02/14/19 05:25 02/14/19 05:56 02/14/19 08:21 Bedside Glucose 173 139 White Blood Count 11.4 #H Red Blood Count 3.03 L Hemoglobin 8.6 L Hematocrit 28.4 L Mean Corpuscular 93.7 Volume Mean Corpuscular 28.4 L Hemoglobin Mean Corpuscular 30.3 L Hemoglobin Concent Red Cell 15.7 H Distribution Width Platelet Count 205 Mean Platelet Volume 10.6 H Immature 1.600 H Granulocytes % Neutrophils % Segmented 58 Neutrophils % (Manual) Band Neutrophils % 16 H (Manual) Lymphocytes % Lymphocytes % 17 (Manual) Monocytes % Monocytes % (Manual) 6 Eosinophils % Eosinophils % 3 (Manual) Basophils % Nucleated Red Blood 0.0 Cells % Immature 0.180 H Granulocytes # Neutrophils # Neutrophils # 6.8 (Manual) Band Neutrophils # 1.8 H Lymphocytes (Manual) 1.9 Lymphocytes # Monocytes # Monocytes # (Manual) 0.6 Eosinophils # Basophils # Nucleated Red Blood Cells # Platelet Estimate NORMAL Giant Platelets 1 H Polychromasia 1+ Anisocytosis 1+ Sodium Level 145 H Potassium Level 4.2 Chloride Level 99 Carbon Dioxide Level 29 Anion Gap 17 H Blood Urea Nitrogen 89 H Creatinine 6.15 H Est Glomerular Filtrat Rate mL/min Glucose Level 179 Calcium Level 8.1 L Phosphorus Level 4.3 Magnesium Level 2.4 Home Meds Reported Medications Glipizide* (Glipizide*) 5 Mg Tablet, 5 MG PO AC BREAKFAST, TAB 02/12/19 Quetiapine Fumarate* (Seroquel* XR) 50 Mg Tab.sr.24h, 50 MG PO DAILY, #30 TAB 02/12/19 Mirtazapine* (Mirtazapine*) 30 Mg Tablet, 30 MG PO HS, TAB 02/12/19 Tramadol Hcl* (Ultram*) 50 Mg Tablet, 50 MG PO DAILY PRN for PAIN, TAB 02/12/19 Levothyroxine Sodium* (Levothyroxine Sodium*) 112 Mcg Tablet, 112 MCG PO BEFORE BREAKFAST, #30 TAB 02/12/19 Simvastatin* (Zocor*) 20 Mg Tablet, 20 MG PO QHS, #30 TAB 02/12/19 Solifenacin* (Vesicare*) 5 Mg Tablet, 5 MG PO DAILY, TAB 02/12/19 Insulin Aspart* (Novolog Insulin Pen*) 100 Unit/Ml Soln, 6 UNIT SC WITH MEALS, EA 02/12/19 Calcium Carbonate (Ynad-Dpu-095) 500 Mg Tablet, 500 MG PO DAILY, TAB 02/12/19 Ergocalciferol (Vitamin D2) (VITAMIN D2) 50,000 Unit Capsule, 77459 UNIT PO Q7D, CAP 02/12/19 Meclizine Hcl* (Meclizine Hcl*) 25 Mg Tablet, 25 MG PO Q8H PRN for DIZZINESS, TAB 02/12/19 Dgtrlzjqky-Fxgyktlcn-EVZS (Exforge HCT) 10-320-25 Mg Tab, 1 EACH PO DAILY, TAB 02/12/19 Aspirin* (Aspirin* EC) 81 Mg Tablet.dr, 81 MG PO DAILY, TAB 02/12/19 Discontinued Reported Medications Insulin Human Isophan/Regular (Novolin 70/30) 100 Units/Ml Susp, 7 UNITS SQ BID 03/13/12 Sevelamer Carbonate* (Renvela*) 800 Mg Tablet, 800 MG PO TID 03/13/12 Glipizide* (Glucotrol*) 5 Mg Tablet, 5 MG PO DAILY 03/13/12 Calcitriol* (Rocaltrol*) 0.25 Mcg Capsule, 0.25 MCG PO DAILY 03/13/12 Captopril (Capoten) 12.5 Mg Tablet, 12.5 MG PO Q8 03/13/12 Levothyroxine Sodium (Tirosint) 112 Mcg Capsule, 112 MCG PO DAILY 10/01/11 Amlodipine Besylate* (Amlodipine Besylate*) 10 Mg Tablet, 10 MG PO DAILY 10/01/11 Calcitriol* (Calcitriol*) 0.25 Mcg Capsule, 0.25 MCG PO DAILY 08/01/11 Hydralazine Hcl* (Hydralazine Hcl*) 25 Mg Tablet, 50 MG PO BID, 0 Refills 08/01/11 Carvedilol* (Carvedilol*) 12.5 Mg Tablet, 12.5 MG PO BID 08/01/11 Aspirin (Aspirin) 81 Mg Tablet, 81 MG PO DAILY 08/01/11 Simvastatin (Simvastatin) 20 Mg Tablet, 20 MG PO QHS 08/01/11 Clonidine Hcl* (Clonidine Hcl*) 0.1 Mg Tab, 0.1 MG PO BID 08/01/11 Medications Current Medications Pantoprazole (Protonix Iv) 40 mg DAILY@06 IV Last administered on 02/14/19at 05:22; Admin Dose 40 MG; Start 02/13/19 at 06:00 Ondansetron HCl (Zofran Inj) 4 mg Q6H PRN IV NAUSEA AND/OR VOMITING; Start 02/12/19 at 16:30 Insulin Aspart (Novolog Insulin Pen) NOVOLOG *MODERATE* ALGORI... Q4 SC Last administered on 02/14/19at 05:39; Admin Dose 2 UNIT; Start 02/12/19 at 17:00 Miscellaneous Information 1 ea NOTE XX ; Start 02/12/19 at 17:00 Glucose (Glutose) 15 gm Q15M PRN PO DECREASED GLUCOSE; Start 02/12/19 at 17:00 Glucose (Glutose) 22.5 gm Q15M PRN PO DECREASED GLUCOSE; Start 02/12/19 at 17:00 Dextrose (D50w Syringe) 25 ml Q15M PRN IV DECREASED GLUCOSE; Start 02/12/19 at 17:00 Dextrose (D50w Syringe) 50 ml Q15M PRN IV DECREASED GLUCOSE; Start 02/12/19 at 17:00 Glucagon (Glucagen) 1 mg Q15M PRN IM DECREASED GLUCOSE; Start 02/12/19 at 17:00 Glucose (Glutose) 15 gm Q15M PRN BUCCAL DECREASED GLUCOSE; Start 02/12/19 at 17:00 Acetaminophen (Tylenol Tab) 500 mg Q8H PRN PO MILD PAIN(1-3)OR ELEVATED TEMP Last administered on 02/14/19at 10:15; Admin Dose 500 MG; Start 02/14/19 at 10:00 Assessment/Plan Hospital Course (Demo Recall) 1. History of BEST. The patient with history of BEST appears to be fairly clinically stable on examination. Continue to monitor now. Stable by exam. 2. Congestive heart failure. The patient with heart failure, probably systolic , acute on chronic. Continue to remove fluid with hemodialysis. Better now. 3. Anemia. History of suspected GI bleed. Full anticoagulation has been stopped. Continue to monitor clinically now. 4. Chest pain. Troponins are negative. We will follow expectantly. 5. Hypertension. Blood pressure fairly well controlled now. We will allow current regimen, patient is not on any blood pressure medication at this particular moment. 6. Diabetes. Continue diabetic optimization and care. We will continue to keep euvolemic. 7. NSVT 30 beats - I reviewed tele, SVT, likely a. tach vs a. fib with RVR - stable now - will follow - not anti-coag with anemia ELISABETH DAILEY MD February 14, 2019 12:05
--- NOTE | 2019-02-14 12:07 | PN ---
DATE: 02/14/2019 SUBJECTIVE: The patient had EGD yesterday, tolerated well. The patient's dialysis was not performed yesterday. No other events noted. OBJECTIVE: VITAL SIGNS: Blood pressure is 121/59, respiration is 18, pulse 77, temperature 98.1. HEENT: Head is normocephalic. NECK: Supple. HEART: Regular rate. LUNGS: Show diminished breath sounds at the base. ABDOMEN: Soft, nontender to palpation without rebound or guarding. EXTREMITIES: Negative for clubbing, cyanosis, no edema. DERMATOLOGIC: No rashes. MUSCULOSKELETAL: No joint effusion. NEUROLOGIC: No change in exam. MEDICATIONS: Have been reviewed. LABORATORY DATA: Has been reviewed. ASSESSMENT AND PLAN: 1. End-stage renal disease. The patient is on dialysis Friday, , Friday with dialysis AV fistula. The patient did not have dialysis yesterday. Plan for dialysis today. 2. Anemia. Monitor hemoglobin and hematocrit levels. Will give Epogen . The patient is status post EGD, evidence of gastritis. 3. Mineral bone disorder. Monitor calcium and phosphorus levels. 4. Coronary artery disease. Continue medical management. 5. Hypernatremia. Continue to encourage free water intake. 6. Gastritis. Patient is status post EGD. Continue proton pump inhibitor. 7. Urinary tract infection. Continue antibiotic regimen. Dictated By: TRISTAN OKEEFE DO NR/NTS Conf#: [id number] DID#: [id number] CC: ROCIO COHEN MD; SHA ROSS MD;*EndCC*
--- NOTE | 2019-02-14 21:28 | CONS ---
Assessment/Plan Assessment/Plan Hospital Course (Demo Recall) 83 yo female with GI bleed, s/p EGD 02/13 Interval hx: HH is decreased. Pt had episode of V tach, follow by Dr Rolle. 1. Upper gastrointestinal bleeding. 2. Diabetes mellitus. 3. Renal failure. 4. Hypertension. 5. Gastritis 6. Esophagitis PLAN: Continue PPI bid Pending pathology Monitor HH and for active gi bleeding, replace prn Pt examined and plan of care discussed with Dr Hurley Consultation Date/Type/Reason Admit Date/Time February 12, 2019 at 14:07 Initial Consult Date Date/Time of Note DATE: 02/14/19 TIME: 21:20 Exam/Review of Systems Exam Vitals Vital Signs Date Temp Pulse Resp B/P (MAP) Pulse Ox O2 O2 Flow FiO2 Time Delivery Rate 02/14/19 96 20:00 02/14/19 98.6 20 116/60 99 20:00 (78) 02/14/19 Nasal 3.0 19:49 Cannula Intake and Output 02/13/19 02/13/19 02/14/19 1515:00 23:00 07:00 IntakeIntake Total 0 ml 400 ml 100 ml OutputOutput Total 0 ml 0 ml BalanceBalance 0 ml 400 ml 100 ml Results Result Diagram: 02/14/19 0556 02/14/19 0556 Results 24hrs Laboratory Tests Test 02/14/19 00:51 02/14/19 05:25 02/14/19 05:56 02/14/19 08:21 Bedside Glucose 128 173 139 White Blood Count 11.4 #H Red Blood Count 3.03 L Hemoglobin 8.6 L Hematocrit 28.4 L Mean Corpuscular 93.7 Volume Mean Corpuscular 28.4 L Hemoglobin Mean Corpuscular 30.3 L Hemoglobin Concent Red Cell 15.7 H Distribution Width Platelet Count 205 Mean Platelet Volume 10.6 H Immature 1.600 H Granulocytes % Neutrophils % Segmented 58 Neutrophils % (Manual) Band Neutrophils % 16 H (Manual) Lymphocytes % Lymphocytes % 17 (Manual) Monocytes % Monocytes % (Manual) 6 Eosinophils % Eosinophils % 3 (Manual) Basophils % Nucleated Red Blood 0.0 Cells % Immature 0.180 H Granulocytes # Neutrophils # Neutrophils # 6.8 (Manual) Band Neutrophils # 1.8 H Lymphocytes (Manual) 1.9 Lymphocytes # Monocytes # Monocytes # (Manual) 0.6 Eosinophils # Basophils # Nucleated Red Blood Cells # Platelet Estimate NORMAL Giant Platelets 1 H Polychromasia 1+ Anisocytosis 1+ Sodium Level 145 H Potassium Level 4.2 Chloride Level 99 Carbon Dioxide Level 29 Anion Gap 17 H Blood Urea Nitrogen 89 H Creatinine 6.15 H Est Glomerular Filtrat Rate mL/min Glucose Level 179 Calcium Level 8.1 L Phosphorus Level 4.3 Magnesium Level 2.4 Test 02/14/19 12:06 02/14/19 17:38 02/14/19 20:09 Bedside Glucose 143 219 276 H Medications Medication Current Medications Pantoprazole (Protonix Iv) 40 mg DAILY@06 IV Last administered on 02/14/19at 05:22; Admin Dose 40 MG; Start 02/13/19 at 06:00 Ondansetron HCl (Zofran Inj) 4 mg Q6H PRN IV NAUSEA AND/OR VOMITING; Start 02/12/19 at 16:30 Insulin Aspart (Novolog Insulin Pen) NOVOLOG *MODERATE* ALGORI... Q4 SC Last administered on 02/14/19at 17:43; Admin Dose 4 UNIT; Start 02/12/19 at 17:00 Miscellaneous Information 1 ea NOTE XX ; Start 02/12/19 at 17:00 Glucose (Glutose) 15 gm Q15M PRN PO DECREASED GLUCOSE; Start 02/12/19 at 17:00 Glucose (Glutose) 22.5 gm Q15M PRN PO DECREASED GLUCOSE; Start 02/12/19 at 17:00 Dextrose (D50w Syringe) 25 ml Q15M PRN IV DECREASED GLUCOSE; Start 02/12/19 at 17:00 Dextrose (D50w Syringe) 50 ml Q15M PRN IV DECREASED GLUCOSE; Start 02/12/19 at 17:00 Glucagon (Glucagen) 1 mg Q15M PRN IM DECREASED GLUCOSE; Start 02/12/19 at 17:00 Glucose (Glutose) 15 gm Q15M PRN BUCCAL DECREASED GLUCOSE; Start 02/12/19 at 17:00 Acetaminophen (Tylenol Tab) 500 mg Q8H PRN PO MILD PAIN(1-3)OR ELEVATED TEMP Last administered on 02/14/19at 10:15; Admin Dose 500 MG; Start 02/14/19 at 10:00 CEDRIC MORRIS February 14, 2019 21:28
--- NOTE | 2019-02-14 22:35 | PN ---
Date/Time of Note Date/Time of Note DATE: 02/14/19 TIME: 22:30 Assessment/Plan VTE Prophylaxis [place] [facility] [place]: 5 [place]CD applied [place] [facility] [place] Yes Pharmacological prophylaxis: other Pharm contraindication: bleeding Lines/Catheters IV C[facility]ter Type (from [facility]): Peripheral IV Central line still needed: No Reason Cath still needed: urinary retention Assessment/Plan Assessment/Plan 1.Upper gi BLEEDING-esophageal varices and gastric bleeding which is now controlled according to Dr. Hurley. 2.CKD on HD. sceduled HD 02/15/2019 3.S/P TAVR 4.DM type 2 5.HTN with chf 6.Anemia of chronic disease 7.Hx of cva 8.Postcva and senile dementia 9.MD 10.Urinary incontinence 11.Dyslipidemia 12.HX of falls 13.Severe muscular waisting 14.PAD 15.right gluteal and lbp 16.L/S scoliosis 17.OSIEL Result Diagram: 02/14/19 0556 02/14/19 0556 Results 24hrs Laboratory Tests Test 02/14/19 00:51 02/14/19 05:25 02/14/19 05:56 02/14/19 08:21 Bedside Glucose 128 173 139 White Blood Count 11.4 #H Red Blood Count 3.03 L Hemoglobin 8.6 L Hematocrit 28.4 L Mean Corpuscular 93.7 Volume Mean Corpuscular 28.4 L Hemoglobin Mean Corpuscular 30.3 L Hemoglobin Concent Red Cell 15.7 H Distribution Width Platelet Count 205 Mean Platelet Volume 10.6 H Immature 1.600 H Granulocytes % Neutrophils % Segmented 58 Neutrophils % (Manual) Band Neutrophils % 16 H (Manual) Lymphocytes % Lymphocytes % 17 (Manual) Monocytes % Monocytes % (Manual) 6 Eosinophils % Eosinophils % 3 (Manual) Basophils % Nucleated Red Blood 0.0 Cells % Immature 0.180 H Granulocytes # Neutrophils # Neutrophils # 6.8 (Manual) Band Neutrophils # 1.8 H Lymphocytes (Manual) 1.9 Lymphocytes # Monocytes # Monocytes # (Manual) 0.6 Eosinophils # Basophils # Nucleated Red Blood Cells # Platelet Estimate NORMAL Giant Platelets 1 H Polychromasia 1+ Anisocytosis 1+ Sodium Level 145 H Potassium Level 4.2 Chloride Level 99 Carbon Dioxide Level 29 Anion Gap 17 H Blood Urea Nitrogen 89 H Creatinine 6.15 H Est Glomerular Filtrat Rate mL/min Glucose Level 179 Calcium Level 8.1 L Phosphorus Level 4.3 Magnesium Level 2.4 Test 02/14/19 12:06 02/14/19 17:38 02/14/19 20:09 Bedside Glucose 143 219 276 H Subjective 24 Hr Interval Summary Free Text/Dictation Right sided posterior low back pain, right pelvic and gluteal area pain significant enough compromising movements sleeping. Constitutional: improved, diaphoresis, disoriented, poor po, requiring O2; No no complaints, No chills, No febrile, No requiring IVF, No other Eyes: pain, discharge; No no complaints, No redness, No visual change, No other ENT: congestion, sore throat; No no complaints, No bleeding, No pain, No discharge, No dysphagia, No other Respiratory: cough, shortness of breath; No no complaints, No pain, No pleuritic pain, No sputum, No wheezing, No other Cardiovascular: chest pain, edema, lightheadedness, orthopenea; No no complaints, No palpitations, No paroxysmal nocturnal dyspnea, No other Gastrointestinal: constipation, decreased appetite, passing stool; No no complaints, No pain, No blood, No diarrhea, No flatus, No nausea, No vomiting, No other Genitourinary: dysuria, discharge; No no complaints, No bleeding, No flank pain, No hematuria, No other Musculoskeletal: back pain, bone/joint pain, neck pain; No no complaints, No restricted range of motion, No swelling, No other Skin: bruising; No no complaints, No erythema, No laceration, No pruritis, No rash, No skin lesions, No other Neurologic: confusion, dizziness, focal-weakness; No no complaints, No headache, No syncope, No seizure, No other Endocrine: dry skin; No no complaints, No polyuria, No polydypsia, No temp intolerance, No other Lymphatic: No no complaints, No adenopathy, No tender nodes, No lymphadema, No other Psychological: anxiety, confusion; No no complaints, No nl mood/affect, No depression, No suicidal, No other Immunologic: No no complaints, No immunodeficiency, No pruritis, No rhinitis, No urticaria, No other Exam/Review of Systems Exam Vitals Vital Signs Date Temp Pulse Resp B/P (MAP) Pulse Ox O2 O2 Flow FiO2 Time Delivery Rate 02/14/19 96 20:00 02/14/19 98.6 20 116/60 99 20:00 (78) 02/14/19 Nasal 3.0 19:49 Cannula Intake and Output 02/13/19 02/13/19 02/14/19 1515:00 23:00 07:00 IntakeIntake Total 0 ml 400 ml 100 ml OutputOutput Total 0 ml 0 ml BalanceBalance 0 ml 400 ml 100 ml Constitutional: alert, oriented (Not in time.), well developed, distress, frail; No non-verbal, No obese, No other Psych: anxiety, confusion, depression; No no complaints, No nl mood/affect, No suicidal, No other Head: normocephalic, atraumatic; No lacerations, No hematomas, No other Eyes: EOMI, nl lids, nl sclera (Pale), PERRL; No nl conjunctiva, No icteric, No fundi, disc, No other ENMT: No nl external ears & nose, No nl lips & teeth, No nl nasal mucosa & septum, No mucosa pink and moist, No intubated, No tympanic membranes, No other Neck: jvd, bruits, nuchal rigidity; No supple, No non-tender, No masses, No thyromegaly, No other Respiratory: diminished breath sounds, intercostal retraction Cardiovascular: regular rate and rhythm, bruits, edema, systolic murmur; No nl pulses, No diastolic murmur, No gallop, No irregular rhythm, No jugular venous distention (JVD), No murmurs/extra sounds, No rub, No S3, No S4, No other Gastrointestinal: soft, bowel sounds, distended; No nl liver, spleen, No non-tender, No ascites, No firm, No hepatomegaly, No mass, No rebound or guarding, No splenomegaly, No surgical scars, No tender, No other Genitourinary - Female: nl adnexae, nl external genitalia Musculoskeletal: joint tenderness, muscle tone, muscle weakness; No nl extremities to inspection, No nl gait and stance, No range of motion, No spine non-tender, No swelling, No other Extremities: edema, pitting pedal edema; No normal pulses, No calf tenderness, No cyanosis, No clubbing, No palpable cord, No tenderness, No other Neurological: [employer] II-XII intact (Impairment.), confused, numbness; No nl mental status, No nl speech, No nl strength, No DTR's symmetric, No focal weakness, No lethargic, No reflexes, No unresponsive, No other Skin: nl turgor (Decreased.), ecchymosis; No rash or lesions, No diaphoresis, No laceration, No puncture, No other Lymph: nl lymph nodes; No enlarged, No nontender, No other Results Results 24hrs Laboratory Tests Test 02/14/19 00:51 02/14/19 05:25 02/14/19 05:56 02/14/19 08:21 Bedside Glucose 128 173 139 White Blood Count 11.4 #H Red Blood Count 3.03 L Hemoglobin 8.6 L Hematocrit 28.4 L Mean Corpuscular 93.7 Volume Mean Corpuscular 28.4 L Hemoglobin Mean Corpuscular 30.3 L Hemoglobin Concent Red Cell 15.7 H Distribution Width Platelet Count 205 Mean Platelet Volume 10.6 H Immature 1.600 H Granulocytes % Neutrophils % Segmented 58 Neutrophils % (Manual) Band Neutrophils % 16 H (Manual) Lymphocytes % Lymphocytes % 17 (Manual) Monocytes % Monocytes % (Manual) 6 Eosinophils % Eosinophils % 3 (Manual) Basophils % Nucleated Red Blood 0.0 Cells % Immature 0.180 H Granulocytes # Neutrophils # Neutrophils # 6.8 (Manual) Band Neutrophils # 1.8 H Lymphocytes (Manual) 1.9 Lymphocytes # Monocytes # Monocytes # (Manual) 0.6 Eosinophils # Basophils # Nucleated Red Blood Cells # Platelet Estimate NORMAL Giant Platelets 1 H Polychromasia 1+ Anisocytosis 1+ Sodium Level 145 H Potassium Level 4.2 Chloride Level 99 Carbon Dioxide Level 29 Anion Gap 17 H Blood Urea Nitrogen 89 H Creatinine 6.15 H Est Glomerular Filtrat Rate mL/min Glucose Level 179 Calcium Level 8.1 L Phosphorus Level 4.3 Magnesium Level 2.4 Test 02/14/19 12:06 02/14/19 17:38 02/14/19 20:09 Bedside Glucose 143 219 276 H Medications Medication Current Medications Ondansetron HCl (Zofran Inj) 4 mg Q6H PRN IV NAUSEA AND/OR VOMITING; Start 02/12/19 at 16:30 Insulin Aspart (Novolog Insulin Pen) NOVOLOG *MODERATE* ALGORI... Q4 SC Last administered on 02/14/19at 21:15; Admin Dose 8 UNIT; Start 02/12/19 at 17:00 Miscellaneous Information 1 ea NOTE XX ; Start 02/12/19 at 17:00 Glucose (Glutose) 15 gm Q15M PRN PO DECREASED GLUCOSE; Start 02/12/19 at 17:00 Glucose (Glutose) 22.5 gm Q15M PRN PO DECREASED GLUCOSE; Start 02/12/19 at 17:00 Dextrose (D50w Syringe) 25 ml Q15M PRN IV DECREASED GLUCOSE; Start 02/12/19 at 17:00 Dextrose (D50w Syringe) 50 ml Q15M PRN IV DECREASED GLUCOSE; Start 02/12/19 at 17:00 Glucagon (Glucagen) 1 mg Q15M PRN IM DECREASED GLUCOSE; Start 02/12/19 at 17:00 Glucose (Glutose) 15 gm Q15M PRN BUCCAL DECREASED GLUCOSE; Start 02/12/19 at 17:00 Acetaminophen (Tylenol Tab) 500 mg Q8H PRN PO MILD PAIN(1-3)OR ELEVATED TEMP Last administered on 02/14/19at 10:15; Admin Dose 500 MG; Start 02/14/19 at 10:00 Pantoprazole (Protonix Iv) 40 mg BID IV ; Start 02/15/19 at 09:00 ROCIO COHEN MD February 14, 2019 22:35
[2019-02-15] VITALS (12 sets, daily range): BP systolic 109–123; BP diastolic 44–66; PULSE 84–108; RESP 17–20
[2019-02-15] MEDS: INSULIN ASPART [NOVOLOG] 3 ML PEN SC SCH ×6 (01:00→20:23)
--- NOTE | 2019-02-15 08:49 | CONS ---
Assessment/Plan Assessment/Plan Hospital Course (Demo Recall) 83 yo female with GI bleed, s/p EGD 02/13 Interval hx: HH slightly increased. No bm. Tolerating soft diet. No N/V 1. Upper gastrointestinal bleeding. 2. Diabetes mellitus. 3. Renal failure. 4. Hypertension. 5. Gastritis 6. Esophagitis- class D 7. Esophageal ulcers 8. Anemia acute PLAN: Miralax 17gm qd po Docusate 100 mg qd MOM x 1 Continue PPI bid Pending pathology Monitor HH and for active gi bleeding, replace prn Spoke with son, Gonzalez, to update family on EGD results and provided education on diet changes Pt examined and plan of care discussed with Dr Hurley Consultation Date/Type/Reason Admit Date/Time February 12, 2019 at 14:07 Initial Consult Date Date/Time of Note DATE: 02/15/19 TIME: 08:40 Exam/Review of Systems Exam Vitals Vital Signs Date Temp Pulse Resp B/P (MAP) Pulse Ox O2 O2 Flow FiO2 Time Delivery Rate 02/15/19 92 08:08 02/15/19 98.3 18 113/44 100 07:23 (67) 02/14/19 Nasal 3.0 19:49 Cannula Intake and Output 02/14/19 02/14/19 02/15/19 1515:00 23:00 07:00 IntakeIntake Total 100 ml OutputOutput Total 1600 ml 0 ml BalanceBalance -1600 ml 100 ml Constitutional: alert Psych: no complaints Head: normocephalic Eyes: PERRL Respiratory: normal air movement Cardiovascular: regular rate and rhythm Gastrointestinal: soft, non-tender, bowel sounds Neurological: nl speech Results Result Diagram: 02/15/19 0542 02/15/19 0542 Results 24hrs Laboratory Tests Test 02/14/19 12:06 02/14/19 17:38 02/14/19 20:09 02/15/19 01:17 Bedside Glucose 143 219 276 H 136 Test 02/15/19 05:03 02/15/19 05:42 02/15/19 07:53 Bedside Glucose 141 167 White Blood Count 10.0 Red Blood Count 3.19 L Hemoglobin 9.3 L Hematocrit 30.6 L Mean Corpuscular 95.9 Volume Mean Corpuscular 29.2 Hemoglobin Mean Corpuscular 30.4 L Hemoglobin Concent Red Cell 15.9 H Distribution Width Platelet Count 143 # Mean Platelet Volume 11.4 H Immature 4.700 H Granulocytes % Neutrophils % 71.1 Lymphocytes % 13.0 L Monocytes % 9.0 Eosinophils % 1.5 Basophils % 0.7 Nucleated Red Blood 0.0 Cells % Immature 0.470 H Granulocytes # Neutrophils # 7.1 Lymphocytes # 1.3 Monocytes # 0.9 Eosinophils # 0.2 Basophils # 0.1 Nucleated Red Blood 0.0 Cells # Sodium Level 139 Potassium Level 4.5 Chloride Level 102 Carbon Dioxide Level 27 Anion Gap 10 # Blood Urea Nitrogen 45 #H Creatinine 3.50 #H Est Glomerular Filtrat Rate mL/min Glucose Level 169 Calcium Level 8.0 L Phosphorus Level 3.6 Magnesium Level 2.1 Medications Medication Current Medications Ondansetron HCl (Zofran Inj) 4 mg Q6H PRN IV NAUSEA AND/OR VOMITING; Start 02/12/19 at 16:30 Insulin Aspart (Novolog Insulin Pen) NOVOLOG *MODERATE* ALGORI... Q4 SC Last administered on 02/15/19at 07:57; Admin Dose 2 UNIT; Start 02/12/19 at 17:00 Miscellaneous Information 1 ea NOTE XX ; Start 02/12/19 at 17:00 Glucose (Glutose) 15 gm Q15M PRN PO DECREASED GLUCOSE; Start 02/12/19 at 17:00 Glucose (Glutose) 22.5 gm Q15M PRN PO DECREASED GLUCOSE; Start 02/12/19 at 17:00 Dextrose (D50w Syringe) 25 ml Q15M PRN IV DECREASED GLUCOSE; Start 02/12/19 at 17:00 Dextrose (D50w Syringe) 50 ml Q15M PRN IV DECREASED GLUCOSE; Start 02/12/19 at 17:00 Glucagon (Glucagen) 1 mg Q15M PRN IM DECREASED GLUCOSE; Start 02/12/19 at 17:00 Glucose (Glutose) 15 gm Q15M PRN BUCCAL DECREASED GLUCOSE; Start 02/12/19 at 17 :00 Acetaminophen (Tylenol Tab) 500 mg Q8H PRN PO MILD PAIN(1-3)OR ELEVATED TEMP Last administered on 02/14/19at 10:15; Admin Dose 500 MG; Start 02/14/19 at 10:00 Pantoprazole (Protonix Iv) 40 mg BID IV ; Start 02/15/19 at 09:00 CEDRIC MORRIS February 15, 2019 08:49
[2019-02-15] MEDS ORDERED: MAGNESIUM HYDROXIDE 30ML CUP PO ONE (09:00)
--- NOTE | 2019-02-15 09:02 | PN ---
DATE: 02/15/2019 SUBJECTIVE: The patient is stable, had hemodialysis yesterday, tolerated well. OBJECTIVE: VITAL SIGNS: Blood pressure is 113/44, pulse 92, respirations 18, temperature 98.3. HEENT: Head is normocephalic. NECK: Supple. HEART: Regular rate. LUNGS: Show diminished breath sounds at the base. ABDOMEN: Soft, nontender to palpation without rebound or guarding. EXTREMITIES: Negative for clubbing, cyanosis, no edema. DERMATOLOGIC: No rashes. MUSCULOSKELETAL: No joint effusion. NEUROLOGIC: No change in exam. MEDICATIONS: The patient's medications have been reviewed. LABORATORY DATA: Reviewed. ASSESSMENT AND PLAN: 1. End-stage renal disease. The patient had hemodialysis yesterday, tolerated well. Plan is for di alysis again tomorrow. 2. Anemia with possible gastrointestinal bleed. The patient is status post EGD. Continue proton pu mp inhibitor. Continue to monitor hemoglobin and hematocrit levels. Continue Epogen. 3. Mineral bone disorder, monitor calcium and phosphorus levels. 4. Coronary artery disease. Continue medical management. 5. Hypernatremia, improved. Continue to encourage free water intake. 6. Gastritis. Continue proton pump inhibitor. 7. Urinary tract infection. Continue current antibiotic regimen. Dictated By: TRISTAN OKEEFE DO NR/NTS Conf#: [id number] DID#: [id number] CC: ROCIO COHEN MD; SHA ROSS MD;*EndCC*
[2019-02-15] MEDS: PANTOPRAZOLE 40 MG INJ IV SCH ×2 (09:05→20:06)
[2019-02-15] MEDS: DOCUSATE SODIUM 100 MG CAP PO SCH (09:06)
[2019-02-15] MEDS: POLYETHYLENE GLYCOL 17 GM PACKET PO SCH (09:06)
--- NOTE | 2019-02-15 12:25 | CONS ---
Assessment/Plan Assessment/Plan Hospital Course (Demo Recall) IMP: 1.TAVR 2.CHF-? systolic vs diastolic acute on chronic 3. ESRD on HD 4.HTN 5.DM 6.WCT-no recurrence. ? abberant SVT. 7. anemia/GIB Recc: -Tele -add BB to suppress any further tachyarrythmia -HD for volume removal' -check TSH -check echo -complete antelmo Consultation Date/Type/Reason Admit Date/Time February 12, 2019 at 14:07 Initial Consult Date 02/13/19 Type of Consult Cardiology Reason for Consultation TAVR Requesting Provider: ROCIO COHEN MD Date/Time of Note DATE: 02/15/19 TIME: 12:20 Exam/Review of Systems Vital Signs Vitals Vital Signs Date Temp Pulse Resp B/P (MAP) Pulse Ox O2 O2 Flow FiO2 Time Delivery Rate 02/15/19 108 12:04 02/15/19 98.6 17 121/65 98 11:38 (83) 02/15/19 Nasal 3.0 08:30 Cannula Intake and Output 02/14/19 02/14/19 02/15/19 1515:00 23:00 07:00 IntakeIntake Total 100 ml OutputOutput Total 1600 ml 0 ml BalanceBalance -1600 ml 100 ml Exam Exam Review of Systems: CONSTITUTIONAL: No fevers, chills. PULMONARY: No sob CARDIOVASCULAR: No chest pain/palpitations GASTROINTESTINAL: No nausea/vomiting. GENITOURINARY: No hematuria/dysuria. MUSCULOSKELETAL: No myagias/arthalgias. PSYCHIATRIC: The patient denies depression. NEUROLOGIC: lethargic Constitutional: other (sleeping, arousable) Psych: no complaints Head: normocephalic ENMT: mucosa pink and moist Neck: supple, jvd (9 cm water) Respiratory: diminished breath sounds (at bases/B) Cardiovascular: regular rate and rhythm Gastrointestinal: soft, non-tender Musculoskeletal: muscle weakness (mild generalized) Extremities: edema (trace/B) Neurological: lethargic Labs Result Diagram: 02/15/19 0542 02/15/19 0542 Results 24hrs Laboratory Tests Test 02/14/19 17:38 02/14/19 20:09 02/15/19 01:17 02/15/19 05:03 Bedside Glucose 219 276 H 136 141 Test 02/15/19 05:42 02/15/19 07:53 White Blood Count 10.0 Red Blood Count 3.19 L Hemoglobin 9.3 L Hematocrit 30.6 L Mean Corpuscular 95.9 Volume Mean Corpuscular 29.2 Hemoglobin Mean Corpuscular 30.4 L Hemoglobin Concent Red Cell 15.9 H Distribution Width Platelet Count 143 # Mean Platelet Volume 11.4 H Immature 4.700 H Granulocytes % Neutrophils % 71.1 Lymphocytes % 13.0 L Monocytes % 9.0 Eosinophils % 1.5 Basophils % 0.7 Nucleated Red Blood 0.0 Cells % Immature 0.470 H Granulocytes # Neutrophils # 7.1 Lymphocytes # 1.3 Monocytes # 0.9 Eosinophils # 0.2 Basophils # 0.1 Nucleated Red Blood 0.0 Cells # Sodium Level 139 Potassium Level 4.5 Chloride Level 102 Carbon Dioxide Level 27 Anion Gap 10 # Blood Urea Nitrogen 45 #H Creatinine 3.50 #H Est Glomerular Filtrat Rate mL/min Glucose Level 169 Calcium Level 8.0 L Phosphorus Level 3.6 Magnesium Level 2.1 Bedside Glucose 167 Medications Medications Current Medications Ondansetron HCl (Zofran Inj) 4 mg Q6H PRN IV NAUSEA AND/OR VOMITING; Start 02/12/19 at 16:30 Insulin Aspart (Novolog Insulin Pen) NOVOLOG *MODERATE* ALGORI... Q4 SC Last administered on 02/15/19at 07:57; Admin Dose 2 UNIT; Start 02/12/19 at 17:00 Miscellaneous Information 1 ea NOTE XX ; Start 02/12/19 at 17:00 Glucose (Glutose) 15 gm Q15M PRN PO DECREASED GLUCOSE; Start 02/12/19 at 17:00 Glucose (Glutose) 22.5 gm Q15M PRN PO DECREASED GLUCOSE; Start 02/12/19 at 17:00 Dextrose (D50w Syringe) 25 ml Q15M PRN IV DECREASED GLUCOSE; Start 02/12/19 at 17:00 Dextrose (D50w Syringe) 50 ml Q15M PRN IV DECREASED GLUCOSE; Start 02/12/19 at 17:00 Glucagon (Glucagen) 1 mg Q15M PRN IM DECREASED GLUCOSE; Start 02/12/19 at 17:00 Glucose (Glutose) 15 gm Q15M PRN BUCCAL DECREASED GLUCOSE; Start 02/12/19 at 17 :00 Acetaminophen (Tylenol Tab) 500 mg Q8H PRN PO MILD PAIN(1-3)OR ELEVATED TEMP Last administered on 02/14/19 10:15; Admin Dose 500 MG; Start 02/14/19 at 10:00 Pantoprazole (Protonix Iv) 40 mg BID IV Last administered on 02/15/19 09:05; Admin Dose 40 MG; Start 02/15/19 at 09:00 Polyethylene Glycol (Miralax) 17 gm DAILY PO Last administered on 02/15/19 09:06; Admin Dose 17 GM; Start 02/15/19 at 09:00 Docusate Sodium (Colace) 100 mg DAILY PO Last administered on 02/15/19 09:06; Admin Dose 100 MG; Start 02/15/19 at 09:00 TASHA DUFFY February 15, 2019 12:24
--- NOTE | 2019-02-15 13:53 | RADRPT ---
Echocardiogram Report Patient Name: ZANA MUÑIZPatient ID: [id number] : [id number] (83y 7m)Study Date: 02/13/2019 1:35:35 PM Gender: FAccession #: [id number] Tech: Geovanny Flowers [facility] Location: [facility] Ref.Physician: ELISABETH DAILEY Height(Cm): BSA: Weight(Kg): Quality: AdequateOrder Physician: ELISABETH DAILEY Account #: Procedures: Echocardiographic Report: Transthoracic echocardiogram with complete 2D, M-Mode, and doppler examination. Indications: TAVR. Measurements: 2D/M Mode Doppler Measurement Value Normal Range Measurement Value Normal Range LVIDd 2D 3.2 [ 3.8 - 5.2 ] cm AV Mean Ranjan 1.7 [ 70.0 - 90.0 ] cm/sec LVIDs 2D 2.0 [ 2.2 - 3.5 ] cm AV Mean PG 14.0 [ 2.0 - 4.0 ] mmHg LVPWd 2D 1.5 [ 0.6 - 0.9 ] cm AV VTI 45.8 cm IVSd 2D 1.6 [ 0.6 - 0.9 ] cm LVOT Peak Ranjan 1.4 [ 70.0 - 110.0 ] cm/se c AoR Diam 2D 2.6 [ 2.3 - 3.1 ] cm LVOT Peak PG 8.0 [ 2.0 - 6.0 ] mmHg EDV 2D 41.9 [ 46.0 - 106.0 ] ml MV PHT 82.0 [ 20.0 - 100.0 ] msec ESV 2D 13.4 [ 14.0 - 42.0 ] ml MV Peak Ranjan 2.4 [ 60.0 - 130.0 ] cm/se c EF 2D 68.0 [ 54.0 - 74.0 ] percent MV Peak PG 24.0 [ 1.0 - 10.0 ] mmHg LA Dimen 2D 3.9 [ 2.7 - 3.8 ] cm MV Mean Ranjan 1.7 cm/sec MV Mean PG 13.0 mmHg MV Decel [place] 9 MV PHT Peak Ranjan 2.5 cm/sec MV VTI 65.2 cm MVA PHT 2.7 [ 2.0 - 4.0 ] cm2 TR Peak Ranjan 4.3 [ 100.0 - 280.0 ] cm/s ec TR Peak PG 75.0 mmHg RVSP 78.0 [ 10.0 - 36.0 ] mmHg Findings: Left Ventricle: Hyperdynamic left ventricular systolic function. Normal left ventricular cavity size. Moderate concentric left ventricular hypertrophy. Ejection fraction is visually estimated at 65 %. Tissue Doppler/Mitral Doppler indices are indeterminate in this study due to the presence of mitral stenosis. Right Ventricle: Normal right ventricular size. Normal right ventricular systolic function. Left Atrium: The left atrium is normal in size. Right Atrium: The right atrium is normal in size. Mitral Valve: Mitral valve leaflets appear moderately thickened. Moderate mitral annular calcification. Mild mitral valve regurgitation. Moderate to severe mitral stenosis. Mitral valve Max Velocity 2.44 m/sec. MaxPG 24.00 mmHg. MeanPG 13.00 mmHg. Mitral Valve Area by PHT 2.68 cm2. Aortic Valve: Transcatheter aortic valve replacement. Aortic valve Max velocity 2.38 m/sec. Max PG 22.70 mmHg. Mean PG 14.00 mmHg. Tricuspid Valve: Normal appearance of the tricuspid valve. Estimated peak PA systolic pressure 78 mmHg. There is moderate tricuspid regurgitation. Pericardium: Normal pericardium with no significant pericardial effusion. Aorta: Normal aortic root. IVC: Normal size and normal respiratory collapse consistent with normal right atrial pressure. Conclusions: Hyperdynamic left ventricular systolic function. Normal left ventricular cavity size. Moderate concentric left ventricular hypertrophy. Ejection fraction is visually estimated at 65 %. Tissue Doppler/Mitral Doppler indices are indeterminate in this study due to the presence of mitral stenosis. Mitral valve leaflets appear moderately thickened. Moderate mitral annular calcification. Mild mitral valve regurgitation. Moderate to severe mitral stenosis. Mitral valve Max Velocity 2.44 m/sec. MaxPG 24.00 mmHg. MeanPG 13.00 mmHg. Mitral Valve Area by PHT 2.68 cm2. Transcatheter aortic valve replacement. Aortic valve Max velocity 2.38 m/sec. Max PG 22.70 mmHg. Mean PG 14.00 mmHg. Normal appearance of the tricuspid valve. Estimated peak PA systolic pressure 78 mmHg. There is moderate tricuspid regurgitation. Electronically Signed By: Joel Persaud 2019-02-15 13:53:12 PDT
--- NOTE | 2019-02-15 14:27 | CONS ---
Consult Date/Type/Reason Admit Date/Time February 12, 2019 at 14:07 Initial Consult Date Type of Consult Pulmonary Requesting Provider: ROCIO COHEN MD Date/Time of Note DATE: 02/15/19 TIME: 14:26 Subjective Status post EGD appears comfortable Objective Vital Signs Date Temp Pulse Resp B/P (MAP) Pulse Ox O2 O2 Flow FiO2 Time Delivery Rate 02/15/19 108 12:04 02/15/19 98.6 17 121/65 98 11:38 (83) 02/15/19 Nasal 3.0 08:30 Cannula Intake and Output 02/14/19 02/14/19 02/15/19 1515:00 23:00 07:00 IntakeIntake Total 100 ml OutputOutput Total 1600 ml 0 ml BalanceBalance -1600 ml 100 ml Exam GENERAL: Elderly Vietnamese lady no respiratory distress VITAL SIGNS: per chart NECK: Supple. No JVD or lymphadenopathy. CARDIAC EXAM: S1, S2. No added sounds or murmurs. CHEST: clear bilaterally, No added sounds, rales or wheezes ABDOMEN: Soft, nontender. No guarding or rebound. EXTREMITIES: No cyanosis, clubbing or edema. NEUROLOGIC: Generalized weakness. No focal deficits. Results/Medications Result Diagram: 02/15/19 0542 02/15/19 0542 Results 24 hrs Laboratory Tests Test 02/14/19 17:38 02/14/19 20:09 02/15/19 01:17 02/15/19 05:03 Bedside Glucose 219 276 H 136 141 Test 02/15/19 05:42 02/15/19 07:53 02/15/19 12:24 White Blood Count 10.0 Red Blood Count 3.19 L Hemoglobin 9.3 L Hematocrit 30.6 L Mean Corpuscular 95.9 Volume Mean Corpuscular 29.2 Hemoglobin Mean Corpuscular 30.4 L Hemoglobin Concent Red Cell 15.9 H Distribution Width Platelet Count 143 # Mean Platelet Volume 11.4 H Immature 4.700 H Granulocytes % Neutrophils % 71.1 Lymphocytes % 13.0 L Monocytes % 9.0 Eosinophils % 1.5 Basophils % 0.7 Nucleated Red Blood 0.0 Cells % Immature 0.470 H Granulocytes # Neutrophils # 7.1 Lymphocytes # 1.3 Monocytes # 0.9 Eosinophils # 0.2 Basophils # 0.1 Nucleated Red Blood 0.0 Cells # Sodium Level 139 Potassium Level 4.5 Chloride Level 102 Carbon Dioxide Level 27 Anion Gap 10 # Blood Urea Nitrogen 45 #H Creatinine 3.50 #H Est Glomerular Filtrat Rate mL/min Glucose Level 169 Calcium Level 8.0 L Phosphorus Level 3.6 Magnesium Level 2.1 Thyroid Stimulating 2.230 Hormone (TSH) Bedside Glucose 167 254 H Medications Current Medications Ondansetron HCl (Zofran Inj) 4 mg Q6H PRN IV NAUSEA AND/OR VOMITING; Start 02/12/19 at 16:30 Insulin Aspart (Novolog Insulin Pen) NOVOLOG *MODERATE* ALGORI... Q4 SC Last administered on 02/15/19at 12:37; Admin Dose 6 UNIT; Start 02/12/19 at 17:00 Miscellaneous Information 1 ea NOTE XX ; Start 02/12/19 at 17:00 Glucose (Glutose) 15 gm Q15M PRN PO DECREASED GLUCOSE; Start 02/12/19 at 17:00 Glucose (Glutose) 22.5 gm Q15M PRN PO DECREASED GLUCOSE; Start 02/12/19 at 17:00 Dextrose (D50w Syringe) 25 ml Q15M PRN IV DECREASED GLUCOSE; Start 02/12/19 at 17:00 Dextrose (D50w Syringe) 50 ml Q15M PRN IV DECREASED GLUCOSE; Start 02/12/19 at 17:00 Glucagon (Glucagen) 1 mg Q15M PRN IM DECREASED GLUCOSE; Start 02/12/19 at 17:00 Glucose (Glutose) 15 gm Q15M PRN BUCCAL DECREASED GLUCOSE; Start 02/12/19 at 17:00 Acetaminophen (Tylenol Tab) 500 mg Q8H PRN PO MILD PAIN(1-3)OR ELEVATED TEMP Last administered on 02/14/19at 10:15; Admin Dose 500 MG; Start 02/14/19 at 10:00 Pantoprazole (Protonix Iv) 40 mg BID IV Last administered on 02/15/19at 09:05; Admin Dose 40 MG; Start 02/15/19 at 09:00 Polyethylene Glycol (Miralax) 17 gm DAILY PO Last administered on 02/15/19at 09:06; Admin Dose 17 GM; Start 02/15/19 at 09:00 Docusate Sodium (Colace) 100 mg DAILY PO Last administered on 02/15/19at 09:06; Admin Dose 100 MG; Start 02/15/19 at 09:00 Metoprolol Tartrate (Lopressor) 25 mg BID PO ; Start 02/15/19 at 21:00 Assessment/Plan Hospital Course (Demo Recall) Right IMPRESSION 1. Upper gastrointestinal bleed, status post endoscopy. 2. Anemia of chronic disease. 3. End-stage renal failure on hemodialysis. 4. Incidental finding of left lower lobe mass not seen on x-ray from 11/2017. Not seen on chest CT. Plan 1. Aspiration precautions GI recommendations. 2. Hemodialysis. 3. Serial hemoglobin and hematocrit. 4. Deep vein thrombosis and gastrointestinal prophylaxis. 5. Hemodialysis as tolerated. 6. Encourage out of bed JONATHAN VANCE MD, [facility] February 15, 2019 14:27
--- NOTE | 2019-02-15 14:42 | PN ---
Date/Time of Note Date/Time of Note DATE: 02/15/19 TIME: 14:41 Assessment/Plan VTE Prophylaxis Risk score (from Ns)>0 risk: 4 SCD applied (from Ns): Yes SCD contraindicated: other (0n) Pharmacological prophylaxis: LMWH Lines/Catheters IV Catheter Type (from Nrs): Peripheral IV Central line still needed: No Urinary Cath still in place: Yes Reason Cath still needed: urinary retention Assessment/Plan Assessment/Plan 1.Upper gi BLEEDING-esophageal varices and gastric bleeding which is now controlled according to Dr. Hurley. 2.CKD on HD. sceduled HD 02/15/2019 3.S/P TAVR 4.DM type 2 5.HTN with chf 6.Anemia of chronic disease 7.Hx of cva 8.Postcva and senile dementia 9.MD 10.Urinary incontinence 11.Dyslipidemia 12.HX of falls 13.Severe muscular waisting 14.PAD 15.right gluteal and lbp 16.L/S scoliosis 17.OSIEL Result Diagram: 02/15/19 0542 02/15/19 0542 Results 24hrs Laboratory Tests Test 02/14/19 17:38 02/14/19 20:09 02/15/19 01:17 02/15/19 05:03 Bedside Glucose 219 276 H 136 141 Test 02/15/19 05:42 02/15/19 07:53 02/15/19 12:24 White Blood Count 10.0 Red Blood Count 3.19 L Hemoglobin 9.3 L Hematocrit 30.6 L Mean Corpuscular 95.9 Volume Mean Corpuscular 29.2 Hemoglobin Mean Corpuscular 30.4 L Hemoglobin Concent Red Cell 15.9 H Distribution Width Platelet Count 143 # Mean Platelet Volume 11.4 H Immature 4.700 H Granulocytes % Neutrophils % 71.1 Lymphocytes % 13.0 L Monocytes % 9.0 Eosinophils % 1.5 Basophils % 0.7 Nucleated Red Blood 0.0 Cells % Immature 0.470 H Granulocytes # Neutrophils # 7.1 Lymphocytes # 1.3 Monocytes # 0.9 Eosinophils # 0.2 Basophils # 0.1 Nucleated Red Blood 0.0 Cells # Sodium Level 139 Potassium Level 4.5 Chloride Level 102 Carbon Dioxide Level 27 Anion Gap 10 # Blood Urea Nitrogen 45 #H Creatinine 3.50 #H Est Glomerular Filtrat Rate mL/min Glucose Level 169 Calcium Level 8.0 L Phosphorus Level 3.6 Magnesium Level 2.1 Thyroid Stimulating 2.230 Hormone (TSH) Bedside Glucose 167 254 H Subjective 24 Hr Interval Summary Free Text/Dictation I am getting tired even when I am meeting. I am very weak. I did not realize he was sleeping while he was eating. Constitutional: improved, poor po, requiring O2; No no complaints, No chills, No diaphoresis, No disoriented, No febrile, No requiring IVF, No other Eyes: No no complaints, No pain, No discharge, No redness, No visual change, No other ENT: congestion, dysphagia, sore throat; No no complaints, No bleeding, No pain, No discharge, No other Respiratory: cough, shortness of breath; No no complaints, No pain, No pleuritic pain, No sputum, No wheezing, No other Cardiovascular: chest pain, orthopenea, palpitations; No no complaints, No edema, No lightheadedness, No paroxysmal nocturnal dyspnea, No other Gastrointestinal: constipation, decreased appetite, flatus, nausea; No no complaints, No pain, No blood, No diarrhea, No passing stool, No vomiting, No other Genitourinary: dysuria; No no complaints, No bleeding, No discharge, No flank pain, No hematuria, No other Musculoskeletal: back pain, bone/joint pain, neck pain; No no complaints, No restricted range of motion, No swelling, No other Skin: bruising Neurologic: confusion, dizziness, headache; No no complaints, No focal-weakness, No syncope, No seizure, No other Endocrine: dry skin; No no complaints, No polyuria, No polydypsia, No temp intolerance, No other Lymphatic: No no complaints, No adenopathy, No tender nodes, No lymphadema, No other Psychological: anxiety, confusion, depression; No no complaints, No nl mood/affect, No suicidal, No other Immunologic: pruritis; No no complaints, No immunodeficiency, No rhinitis, No urticaria, No other Exam/Review of Systems Exam Vitals Vital Signs Date Temp Pulse Resp B/P (MAP) Pulse Ox O2 O2 Flow FiO2 Time Delivery Rate 02/15/19 108 12:04 02/15/19 98.6 17 121/65 98 11:38 (83) 02/15/19 Nasal 3.0 08:30 Cannula Intake and Output 02/14/19 02/14/19 02/15/19 1515:00 23:00 07:00 IntakeIntake Total 100 ml OutputOutput Total 1600 ml 0 ml BalanceBalance -1600 ml 100 ml Constitutional: alert, oriented (Oriented in time had difficulty to find words to express herself.), well developed, distress, frail; No non-verbal, No obese, No other Psych: anxiety, confusion; No no complaints, No nl mood/affect, No depression, No suicidal, No other Head: normocephalic, atraumatic; No lacerations, No hematomas, No other Eyes: EOMI, nl lids, PERRL; No nl conjunctiva, No nl sclera, No icteric, No fundi, disc, No other ENMT: nl external ears & nose, nl nasal mucosa & septum; No nl lips & teeth, No mucosa pink and moist, No intubated, No tympanic memb ranes, No other Neck: bruits, thyromegaly, nuchal rigidity; No supple, No non-tender, No jvd, No masses, No other Respiratory: normal air movement, congested cough, crackles/rales, diminished breath sounds, labored breathing Cardiovascular: bruits, edema, irregular rhythm, systolic murmur; No regular rate and rhythm, No nl pulses, No diastolic murmur, No gallop, No jugular venous distention (JVD), No murmurs/extra sounds, No rub, No S3, No S4, No other Gastrointestinal: soft, nl liver, spleen; No non-tender, No ascites, No bowel sounds, No distended, No firm, No hepatomegaly, No mass, No rebound or guarding, No splenomegaly, No surgical scars, No tender, No other Genitourinary - Female: No nl adnexae, No nl external genitalia, No CMT, No CVA tenderness, No uterus, No other Musculoskeletal: joint tenderness, muscle tone, muscle weakness; No nl extremities to inspection, No nl gait and stance, No range of motion, No spine non-tender, No swelling, No other Results Results 24hrs Laboratory Tests Test 02/14/19 17:38 02/14/19 20:09 02/15/19 01:17 02/15/19 05:03 Bedside Glucose 219 276 H 136 141 Test 02/15/19 05:42 02/15/19 07:53 02/15/19 12:24 White Blood Count 10.0 Red Blood Count 3.19 L Hemoglobin 9.3 L Hematocrit 30.6 L Mean Corpuscular 95.9 Volume Mean Corpuscular 29.2 Hemoglobin Mean Corpuscular 30.4 L Hemoglobin Concent Red Cell 15.9 H Distribution Width Platelet Count 143 # Mean Platelet Volume 11.4 H Immature 4.700 H Granulocytes % Neutrophils % 71.1 Lymphocytes % 13.0 L Monocytes % 9.0 Eosinophils % 1.5 Basophils % 0.7 Nucleated Red Blood 0.0 Cells % Immature 0.470 H Granulocytes # Neutrophils # 7.1 Lymphocytes # 1.3 Monocytes # 0.9 Eosinophils # 0.2 Basophils # 0.1 Nucleated Red Blood 0.0 Cells # Sodium Level 139 Potassium Level 4.5 Chloride Level 102 Carbon Dioxide Level 27 Anion Gap 10 # Blood Urea Nitrogen 45 #H Creatinine 3.50 #H Est Glomerular Filtrat Rate mL/min Glucose Level 169 Calcium Level 8.0 L Phosphorus Level 3.6 Magnesium Level 2.1 Thyroid Stimulating 2.230 Hormone (TSH) Bedside Glucose 167 254 H Medications Medication Current Medications Ondansetron HCl (Zofran Inj) 4 mg Q6H PRN IV NAUSEA AND/OR VOMITING; Start 01/27 04/16 at 16:30 Insulin Aspart (Novolog Insulin Pen) NOVOLOG *MODERATE* ALGORI... Q4 SC Last administered on 02/15/19at 12:37; Admin Dose 6 UNIT; Start 02/12/19 at 17:00 Miscellaneous Information 1 ea NOTE XX ; Start 02/12/19 at 17:00 Glucose (Glutose) 15 gm Q15M PRN PO DECREASED GLUCOSE; Start 02/12/19 at 17:00 Glucose (Glutose) 22.5 gm Q15M PRN PO DECREASED GLUCOSE; Start 02/12/19 at 17:00 Dextrose (D50w Syringe) 25 ml Q15M PRN IV DECREASED GLUCOSE; Start 02/12/19 at 17:00 Dextrose (D50w Syringe) 50 ml Q15M PRN IV DECREASED GLUCOSE; Start 02/12/19 at 17:00 Glucagon (Glucagen) 1 mg Q15M PRN IM DECREASED GLUCOSE; Start 02/12/19 at 17:00 Glucose (Glutose) 15 gm Q15M PRN BUCCAL DECREASED GLUCOSE; Start 02/12/19 at 17:00 Acetaminophen (Tylenol Tab) 500 mg Q8H PRN PO MILD PAIN(1-3)OR ELEVATED TEMP Last administered on 02/14/19at 10:15; Admin Dose 500 MG; Start 02/14/19 at 10:00 Pantoprazole (Protonix Iv) 40 mg BID IV Last administered on 02/15/19 09:05; Admin Dose 40 MG; Start 02/15/19 at 09:00 Polyethylene Glycol (Miralax) 17 gm DAILY PO Last administered on 02/15/19at 09:06; Admin Dose 17 GM; Start 02/15/19 at 09:00 Docusate Sodium (Colace) 100 mg DAILY PO Last administered on 02/15/19at 09:06; Admin Dose 100 MG; Start 02/15/19 at 09:00 Metoprolol Tartrate (Lopressor) 25 mg BID PO ; Start 02/15/19 at 21:00 ROCIO COHEN MD February 15, 2019 14:42
[2019-02-15] MEDS: METOPROLOL 25 MG TAB PO SCH (20:06)
[2019-02-16] VITALS (23 sets, daily range): BP systolic 79–146; BP diastolic 47–71; PULSE 74–172; RESP 17–19
[2019-02-16] MEDS: ACCU-CHEK XX SCH (02:00)
--- NOTE | 2019-02-16 08:21 | PN ---
DATE: 02/16/2019 SUBJECTIVE: The patient is stable, no events overnight. OBJECTIVE: VITAL SIGNS: Blood pressure is 128/56, pulse 88, respirations 18, temperature 98.3. HEENT: Head is normocephalic. NECK: Supple. HEART: Regular rate. LUNGS: Show diminished breath sounds at the base. ABDOMEN: Soft, nontender to palpation without rebound or guarding. EXTREMITIES: Negative for clubbing, cyanosis, no edema. DERMATOLOGIC: No rashes. MUSCULOSKELETAL: No joint effusion. NEUROLOGIC: No change in exam. MEDICATIONS: Reviewed. LABORATORY DATA: Reviewed. ASSESSMENT AND PLAN: 1. End-stage renal disease. Plan is for hemodialysis today. We will dialyze 3 hours 2k bath, calci um 2.5. 2. Anemia with possible GI bleed. The patient is status post EGD. Continue proton pump inhibitor, monitor hemoglobin and hematocrit levels. Continue Epogen. Transfuse as needed. 3. Mineral bone disorder. Monitor calcium and phosphorus levels. 4. Coronary artery disease. Continue current medical management. 5. Hypernatremia, improved. 6. Gastritis. Continue proton pump inhibitor. 7. Urinary tract infection. The patient is completing antibiotic course. 8. Left lower lobe mass. The patient's CT scan was performed, no finding of a mass was seen. Lucero nue to monitor. Follow up with pulmonary. Dictated By: TRISTAN OKEEFE DO NR/NTS Conf#: [id number] DID#: [id number] CC: SHA ROSS MD; ROCIO COHEN MD;*EndCC*
[2019-02-16] MEDS: METOPROLOL 25 MG TAB PO SCH ×2 (08:43→21:00)
[2019-02-16] MEDS: POLYETHYLENE GLYCOL 17 GM PACKET PO SCH (08:43)
[2019-02-16] MEDS: PANTOPRAZOLE 40 MG INJ IV SCH ×2 (08:43→22:12)
[2019-02-16] MEDS: DOCUSATE SODIUM 100 MG CAP PO SCH (08:43)
--- NOTE | 2019-02-16 08:48 | CONS ---
Assessment/Plan Assessment/Plan Hospital Course (Demo Recall) 83 yo female with GI bleed, s/p EGD 02/13 1. Upper gastrointestinal bleeding. 2. Diabetes mellitus. 3. Renal failure. 4. Hypertension. 5. Gastritis 6. Esophagitis- class D 7. Esophageal ulcers 8. Anemia acute PLAN: Continue bowel regimen, dulcolax 10 mg x 1 Continue PPI bid Pending pathology Monitor HH and for active gi bleeding, replace prn Spoke with son, Gonzalez, to update family on EGD results and provided education on diet changes Pt examined and plan of care discussed with Dr Hurley Consultation Date/Type/Reason Admit Date/Time February 12, 2019 at 14:07 Initial Consult Date Requesting Provider: ROCIO COHEN MD Date/Time of Note DATE: 02/16/19 TIME: 08:46 24 HR Interval Summary Free Text/Dictation No c/o abd pain or nausea. Elevated troponins. Tolerating po diet. Exam/Review of Systems Exam Vitals Vital Signs Date Temp Pulse Resp B/P (MAP) Pulse Ox O2 O2 Flow FiO2 Time Delivery Rate 02/16/19 88 08:00 02/16/19 Nasal 3.0 07:42 Cannula 02/16/19 98.3 18 128/57 99 07:24 (80) Intake and Output 02/15/19 02/15/19 02/16/19 1515:00 23:00 07:00 IntakeIntake Total 120 ml 450 ml OutputOutput Total 0 ml 0 ml BalanceBalance 120 ml 450 ml Constitutional: alert, oriented Psych: no complaints Head: normocephalic Eyes: PERRL Respiratory: normal air movement Cardiovascular: regular rate and rhythm Gastrointestinal: soft, non-tender Neurological: nl mental status Results Result Diagram: 02/15/19 0542 02/15/19 0542 Results 24hrs Laboratory Tests Test 02/15/19 12:24 02/15/19 16:21 02/15/19 17:20 02/15/19 19:50 Bedside Glucose 254 H 239 H 197 Creatine Kinase 323 H Creatine Kinase 0.4 Index Creatinine Kinase MB 1.18 (Mass) Troponin I 0.147 *H Test 02/16/19 00:23 02/16/19 02:04 02/16/19 05:42 Creatine Kinase 232 H 186 Creatine Kinase 0.4 0.4 Index Creatinine Kinase MB 0.85 0.73 (Mass) Troponin I 0.145 *H 0.135 *H Bedside Glucose 154 Triglycerides Level 292 H Cholesterol Level 108 LDL Cholesterol, 37 Calculated HDL Cholesterol 13 L Cholesterol/HDL 8.3 Ratio Medications Medication Current Medications Ondansetron HCl (Zofran Inj) 4 mg Q6H PRN IV NAUSEA AND/OR VOMITING; Start 02/12/19 at 16:30 Miscellaneous Information 1 ea NOTE XX ; Start 02/12/19 at 17:00 Glucose (Glutose) 15 gm Q15M PRN PO DECREASED GLUCOSE; Start 02/12/19 at 17:00 Glucose (Glutose) 22.5 gm Q15M PRN PO DECREASED GLUCOSE; Start 02/12/19 at 17:0 0 Dextrose (D50w Syringe) 25 ml Q15M PRN IV DECREASED GLUCOSE; Start 02/12/19 at 17:00 Dextrose (D50w Syringe) 50 ml Q15M PRN IV DECREASED GLUCOSE; Start 02/12/19 at 17:00 Glucagon (Glucagen) 1 mg Q15M PRN IM DECREASED GLUCOSE; Start 02/12/19 at 17:00 Glucose (Glutose) 15 gm Q15M PRN BUCCAL DECREASED GLUCOSE; Start 02/12/19 at 17:00 Acetaminophen (Tylenol Tab) 500 mg Q8H PRN PO MILD PAIN(1-3)OR ELEVATED TEMP Last administered on 02/14/19at 10:15; Admin Dose 500 MG; Start 02/14/19 at 10:00 Pantoprazole (Protonix Iv) 40 mg BID IV Last administered on 02/15/19at 20:06; Admin Dose 40 MG; Start 02/15/19 at 09:00 Polyethylene Glycol (Miralax) 17 gm DAILY PO Last administered on 02/15/19at 09:06; Admin Dose 17 GM; Start 02/15/19 at 09:00 Docusate Sodium (Colace) 100 mg DAILY PO Last administered on 02/15/19at 09:06; Admin Dose 100 MG; Start 02/15/19 at 09:00 Metoprolol Tartrate (Lopressor) 25 mg BID PO Last administered on 02/15/19at 20:06; Admin Dose 25 MG; Start 02/15/19 at 21:00 Diagnostic Test (Pha) (Accu-Chek) 1 ea 02 XX Last administered on 02/16/19at 02:00; Admin Dose 1 EA; Start 02/16/19 at 02:00 Insulin Aspart (Novolog Insulin Pen) NOVOLOG *MODERATE* ALGORITHM WITH MEALS BEDTIME SC Last administered on 02/15/19at 20:23; Admin Dose 1 UNIT; Start 02/15/19 at 21:00 CEDRIC MORRIS February 16, 2019 08:48
[2019-02-16] MEDS ORDERED: BISACODYL (EC) 5 MG TAB PO ONE (09:00)
[2019-02-16] MEDS: INSULIN ASPART [NOVOLOG] 3 ML PEN SC SCH ×4 (09:10→20:32)
--- NOTE | 2019-02-16 10:47 | CONS ---
Consult Date/Type/Reason Admit Date/Time February 12, 2019 at 14:07 Initial Consult Date Type of Consult Pulmonary Requesting Provider: ROCIO COHEN MD Date/Time of Note DATE: 02/16/19 TIME: 10:46 Subjective Patient appears comfortable this morning no respiratory distress. Objective Vital Signs Date Temp Pulse Resp B/P (MAP) Pulse Ox O2 O2 Flow FiO2 Time Delivery Rate 02/16/19 88 08:00 02/16/19 Nasal 3.0 07:42 Cannula 02/16/19 98.3 18 128/57 99 07:24 (80) Intake and Output 02/15/19 02/15/19 02/16/19 1515:00 23:00 07:00 IntakeIntake Total 120 ml 450 ml OutputOutput Total 0 ml 0 ml BalanceBalance 120 ml 450 ml Exam GENERAL: Elderly Tajik lady no respiratory distress VITAL SIGNS: per chart NECK: Supple. No JVD or lymphadenopathy. CARDIAC EXAM: S1, S2. No added sounds or murmurs. CHEST: clear bilaterally, No added sounds, rales or wheezes ABDOMEN: Soft, nontender. No guarding or rebound. EXTREMITIES: No cyanosis, clubbing or edema. NEUROLOGIC: Generalized weakness. No focal deficits. Results/Medications Result Diagram: 02/15/19 0542 02/15/19 0542 Results 24 hrs Laboratory Tests Test 02/15/19 12:24 02/15/19 16:21 02/15/19 17:20 02/15/19 19:50 Bedside Glucose 254 H 239 H 197 Creatine Kinase 323 H Creatine Kinase 0.4 Index Creatinine Kinase MB 1.18 (Mass) Troponin I 0.147 *H Test 02/16/19 00:23 02/16/19 02:04 02/16/19 05:42 02/16/19 08:42 Creatine Kinase 232 H 186 Creatine Kinase 0.4 0.4 Index Creatinine Kinase MB 0.85 0.73 (Mass) Troponin I 0.145 *H 0.135 *H Bedside Glucose 154 203 Triglycerides Level 292 H Cholesterol Level 108 LDL Cholesterol, 37 Calculated HDL Cholesterol 13 L Cholesterol/HDL 8.3 Ratio Medications Current Medications Ondansetron HCl (Zofran Inj) 4 mg Q6H PRN IV NAUSEA AND/OR VOMITING; Start 02/12/19 at 16:30 Miscellaneous Information 1 ea NOTE XX ; Start 02/12/19 at 17:00 Glucose (Glutose) 15 gm Q15M PRN PO DECREASED GLUCOSE; Start 02/12/19 at 17:00 Glucose (Glutose) 22.5 gm Q15M PRN PO DECREASED GLUCOSE; Start 02/12/19 at 17:00 Dextrose (D50w Syringe) 25 ml Q15M PRN IV DECREASED GLUCOSE; Start 02/12/19 at 17:00 Dextrose (D50w Syringe) 50 ml Q15M PRN IV DECREASED GLUCOSE; Start 02/12/19 at 17:00 Glucagon (Glucagen) 1 mg Q15M PRN IM DECREASED GLUCOSE; Start 02/12/19 at 17:00 Glucose (Glutose) 15 gm Q15M PRN BUCCAL DECREASED GLUCOSE; Start 02/12/19 at 17:00 Acetaminophen (Tylenol Tab) 500 mg Q8H PRN PO MILD PAIN(1-3)OR ELEVATED TEMP Last administered on 02/14/19at 10:15; Admin Dose 500 MG; Start 02/14/19 at 10:00 Pantoprazole (Protonix Iv) 40 mg BID IV Last administered on 02/16/19at 08:43; Admin Dose 40 MG; Start 02/15/19 at 09:00 Polyethylene Glycol (Miralax) 17 gm DAILY PO Last administered on 02/16/19at 08:43; Admin Dose 17 GM; Start 02/15/19 at 09:00 Docusate Sodium (Colace) 100 mg DAILY PO Last administered on 02/16/19at 08:43; Admin Dose 100 MG; Start 02/15/19 at 09:00 Metoprolol Tartrate (Lopressor) 25 mg BID PO Last administered on 02/16/19at 08:43; Admin Dose 25 MG; Start 02/15/19 at 21:00 Diagnostic Test (Pha) (Accu-Chek) 1 ea 02 XX Last administered on 02/16/19at 02:00; Admin Dose 1 EA; Start 02/16/19 at 02:00 Insulin Aspart (Novolog Insulin Pen) NOVOLOG *MODERATE* ALGORITHM WITH MEALS BEDTIME SC Last administered on 02/16/19at 09:10; Admin Dose 4 UNIT; Start 02/15/19 at 21:00 Assessment/Plan Hospital Course (Demo Recall) Right IMPRESSION 1. Upper gastrointestinal bleed, status post endoscopy. 2. Anemia of chronic disease. 3. End-stage renal failure on hemodialysis. 4. Incidental finding of left lower lobe mass not seen on x-ray from 11/2017. Not seen on chest CT. Plan 1. Aspiration precautions GI recommendations. 2. Hemodialysis. 3. Serial hemoglobin and hematocrit. 4. Deep vein thrombosis and gastrointestinal prophylaxis. 5. Hemodialysis as tolerated. 6. Encourage out of bed Consider acute rehab evaluation JONATHAN VANCE MD, [facility] February 16, 2019 10:47
[2019-02-16] MEDS: ACETAMINOPHEN 500 MG TAB PO PRN ×2 (11:51→20:37)
--- NOTE | 2019-02-16 14:03 | PN ---
Date/Time of Note Date/Time of Note DATE: 02/16/19 TIME: 14:01 Assessment/Plan VTE Prophylaxis Risk score (from Ns)>0 risk: 6 SCD applied (from [facility]): Yes SCD contraindicated: other Pharmacological prophylaxis: LMWH Lines/Catheters IV Catheter Type (from [facility]): [place] [employer] line still needed: No Urinary Cath still in place: Yes Reason Cath still needed: urinary retention Assessment/Plan Assessment/Plan 1.Upper gi BLEEDING-esophageal varices and gastric bleeding which is now controlled according to Dr. Hurley. 2.CKD on HD. sceduled HD 02/15/2019 3.S/P TAVR 4.DM type 2 5.HTN with chf 6.Anemia of chronic disease 7.Hx of cva 8.Postcva and senile dementia 9.MD 10.Urinary incontinence 11.Dyslipidemia 12.HX of falls 13.Severe muscular waisting 14.PAD 15.right gluteal and lbp 16.L/S scoliosis 17.OSAon. Result Diagram: 02/15/19 0542 02/15/19 0542 Results 24hrs Laboratory Tests Test 02/15/19 16:21 02/15/19 17:20 02/15/19 19:50 02/16/19 00:23 Creatine Kinase 323 H 232 H Creatine Kinase 0.4 0.4 Index Creatinine Kinase MB 1.18 0.85 (Mass) Troponin I 0.147 *H 0.145 *H Bedside Glucose 239 H 197 Test 02/16/19 02:04 02/16/19 05:42 02/16/19 08:42 02/16/19 11:47 Bedside Glucose 154 203 245 H Creatine Kinase 186 Creatine Kinase 0.4 Index Creatinine Kinase MB 0.73 (Mass) Troponin I 0.135 *H Triglycerides Level 292 H Cholesterol Level 108 LDL Cholesterol, 37 Calculated HDL Cholesterol 13 L Cholesterol/HDL 8.3 Ratio Subjective 24 Hr Interval Summary Constitutional: improved, chills, disoriented, poor po, requiring O2; No no complaints, No diaphoresis, No febrile, No requiring IVF, No other Eyes: No no complaints, No pain, No discharge, No redness, No visual change, No other ENT: pain, congestion; No no complaints, No bleeding, No discharge, No dysphagia, No sore throat, No other Respiratory: cough, pleuritic pain, shortness of breath; No no complaints, No pain, No sputum, No wheezing, No other Cardiovascular: chest pain; No no complaints, No edema, No lightheadedness, No orthopenea, No palpitations, No paroxysmal nocturnal dyspnea, No other Gastrointestinal: constipation, decreased appetite, flatus; No no complaints, No pain, No blood, No diarrhea, No nausea, No passing stool, No vomiting, No other Genitourinary: dysuria; No no complaints, No bleeding, No discharge, No flank pain, No hematuria, No other Musculoskeletal: back pain, bone/joint pain, neck pain; No no complaints, No restricted range of motion, No swelling, No other Skin: erythema; No no complaints, No bruising, No laceration, No pruritis, No rash, No skin lesions, No other Neurologic: dizziness, headache; No no complaints, No confusion, No focal-weakness, No syncope, No seizure, No other Lymphatic: adenopathy, lymphadema; No no complaints, No tender nodes, No other Psychological: anxiety; No no complaints, No nl mood/affect, No confusion, No depression, No suicidal, No other Immunologic: No no complaints, No immunodeficiency, No pruritis, No rhinitis, No urticaria, No other Exam/Review of Systems Exam Vitals Vital Signs Date Temp Pulse Resp B/P (MAP) Pulse Ox O2 O2 Flow FiO2 Time Delivery Rate 02/16/19 172 12:01 02/16/19 98.1 17 136/64 97 11:20 (88) 02/16/19 Nasal 3.0 07:42 Cannula Intake and Output 02/15/19 02/15/19 02/16/19 1515:00 23:00 07:00 IntakeIntake Total 120 ml 450 ml OutputOutput Total 0 ml 0 ml BalanceBalance 120 ml 450 ml Constitutional: alert, oriented, well developed, frail; No non-verbal, No distress, No obese, No other Psych: anxiety, confusion; No no complaints, No nl mood/affect, No depression, No suicidal, No other Head: normocephalic, atraumatic; No lacerations, No hematomas, No other Eyes: EOMI, nl lids, PERRL; No nl conjunctiva, No nl sclera, No icteric, No fundi, disc, No other ENMT: No nl external ears & nose, No nl lips & teeth, No nl nasal mucosa & septum, No mucosa pink and moist, No intubated, No tympanic membranes, No other Neck: jvd, bruits, thyromegaly, nuchal rigidity; No supple, No non-tender, No masses, No other Respiratory: crackles/rales, diminished breath sounds; No clear to auscultation, No normal air movement, No congested cough, No intercostal retraction, No labored breathing, No respirations, No tactile fremitus, No wheezing, No other Cardiovascular: regular rate and rhythm, bruits, systolic murmur; No nl pulses, No diastolic murmur, No edema, No gallop, No irregular rhythm, No jugular venous distention (JVD), No murmurs/extra sounds, No rub, No S3, No S4, No other Gastrointestinal: soft, distended; No nl liver, spleen, No non-tender, No ascites, No bowel sounds, No firm, No hepatomegaly, No mass, No rebound or guarding, No splenomegaly, No surgical scars, No tender, No other Musculoskeletal: joint tenderness, muscle tone, muscle weakness; No nl extremities to inspection, No nl gait and stance, No range of motion, No spine non-tender, No swelling, No other Extremities: normal pulses; No calf tenderness, No cyanosis, No clubbing, No edema, No pitting pedal edema, No palpable cord, No tenderness, No other Results Results 24hrs Laboratory Tests Test 02/15/19 16:21 02/15/19 17:20 02/15/19 19:50 02/16/19 00:23 Creatine Kinase 323 H 232 H Creatine Kinase 0.4 0.4 Index Creatinine Kinase MB 1.18 0.85 (Mass) Troponin I 0.147 *H 0.145 *H Bedside Glucose 239 H 197 Test 02/16/19 02:04 02/16/19 05:42 02/16/19 08:42 02/16/19 11:47 Bedside Glucose 154 203 245 H Creatine Kinase 186 Creatine Kinase 0.4 Index Creatinine Kinase MB 0.73 (Mass) Troponin I 0.135 *H Triglycerides Level 292 H Cholesterol Level 108 LDL Cholesterol, 37 Calculated HDL Cholesterol 13 L Cholesterol/HDL 8.3 Ratio Medications Medication Current Medications Ondansetron HCl (Zofran Inj) 4 mg Q6H PRN IV NAUSEA AND/OR VOMITING; Start 02/12/19 at 16:30 Miscellaneous Information 1 ea NOTE XX ; Start 02/12/19 at 17:00 Glucose (Glutose) 15 gm Q15M PRN PO DECREASED GLUCOSE; Start 02/12/19 at 17:00 Glucose (Glutose) 22.5 gm Q15M PRN PO DECREASED GLUCOSE; Start 02/12/19 at 17:00 Dextrose (D50w Syringe) 25 ml Q15M PRN IV DECREASED GLUCOSE; Start 02/12/19 at 17:00 Dextrose (D50w Syringe) 50 ml Q15M PRN IV DECREASED GLUCOSE; Start 02/12/19 at 17:00 Glucagon (Glucagen) 1 mg Q15M PRN IM DECREASED GLUCOSE; Start 02/12/19 at 17:00 Glucose (Glutose) 15 gm Q15M PRN BUCCAL DECREASED GLUCOSE; Start 02/12/19 at 17:00 Acetaminophen (Tylenol Tab) 500 mg Q8H PRN PO MILD PAIN(1-3)OR ELEVATED TEMP Last administered on 02/16/19at 11:51; Admin Dose 500 MG; Start 02/14/19 at 10:00 Pantoprazole (Protonix Iv) 40 mg BID IV Last administered on 02/16/19 08:43; Admin Dose 40 MG; Start 02/15/19 at 09:00 Polyethylene Glycol (Miralax) 17 gm DAILY PO Last administered on 02/16/19 08:43; Admin Dose 17 GM; Start 02/15/19 at 09:00 Docusate Sodium (Colace) 100 mg DAILY PO Last administered on 02/16/19at 08:43; Admin Dose 100 MG; Start 02/15/19 at 09:00 Metoprolol Tartrate (Lopressor) 25 mg BID PO Last administered on 02/16/19 08:43; Admin Dose 25 MG; Start 02/15/19 at 21:00 Diagnostic Test (Pha) (Accu-Chek) 1 ea 02 XX Last administered on 02/16/19at 02:00; Admin Dose 1 EA; Start 02/16/19 at 02:00 Insulin Aspart (Novolog Insulin Pen) NOVOLOG *MODERATE* ALGORITHM WITH MEALS BEDTIME SC Last administered on 02/16/19at 11:59; Admin Dose 6 UNIT; Start 02/15/19 at 21:00 ROCIO COHEN MD February 16, 2019 14:03
--- NOTE | 2019-02-16 14:43 | CONS ---
Consult Date/Type/Reason Admit Date/Time February 12, 2019 at 14:07 Initial Consult Date Requesting Provider: ROCIO COHEN MD Date/Time of Note DATE: 02/16/19 TIME: 14:42 Subjective NO acute events - stable on tele - pain controlled. ROS: No fever, no chills, no nausea, no vomiting, no diarrhea/constipation - GI bleeding stopped No recent weight changes Objective Vitals Vital Signs Date Temp Pulse Resp B/P (MAP) Pulse Ox O2 O2 Flow FiO2 Time Delivery Rate 02/16/19 172 12:01 02/16/19 98.1 17 136/64 97 11:20 (88) 02/16/19 Nasal 3.0 07:42 Cannula Intake and Output 02/15/19 02/15/19 02/16/19 1515:00 23:00 07:00 IntakeIntake Total 120 ml 450 ml OutputOutput Total 0 ml 0 ml BalanceBalance 120 ml 450 ml Exam General: WN/WD/NAD, AOx 1-2 HEENT: Unicetric/atraumatic/EOMI (does not follow commands) NECK: JVD elevated, no thyromegaly Lymph: no lymphadenopathy HEART: regular with no S3, II/ systolic murmur at apex, PMI L LUNGS: Coarse sounds ABD: soft, NT, ND, +BS : Intact Neuro: non focal SKIN: chronic changes EXT: trace edema Results/Medications Result Diagram: 02/15/19 0542 02/15/19 0542 Results 24 hrs Laboratory Tests Test 02/15/19 16:21 02/15/19 17:20 02/15/19 19:50 02/16/19 00:23 Creatine Kinase 323 H 232 H Creatine Kinase 0.4 0.4 Index Creatinine Kinase MB 1.18 0.85 (Mass) Troponin I 0.147 *H 0.145 *H Bedside Glucose 239 H 197 Test 02/16/19 02:04 02/16/19 05:42 02/16/19 08:42 02/16/19 11:47 Bedside Glucose 154 203 245 H Creatine Kinase 186 Creatine Kinase 0.4 Index Creatinine Kinase MB 0.73 (Mass) Troponin I 0.135 *H Triglycerides Level 292 H Cholesterol Level 108 LDL Cholesterol, 37 Calculated HDL Cholesterol 13 L Cholesterol/HDL 8.3 Ratio Home Meds Reported Medications Glipizide* (Glipizide*) 5 Mg Tablet, 5 MG PO AC BREAKFAST, TAB 02/12/19 Quetiapine Fumarate* (Seroquel* XR) 50 Mg Tab.sr.24h, 50 MG PO DAILY, #30 TAB 02/12/19 Mirtazapine* (Mirtazapine*) 30 Mg Tablet, 30 MG PO HS, TAB 02/12/19 Tramadol Hcl* (Ultram*) 50 Mg Tablet, 50 MG PO DAILY PRN for PAIN, TAB 02/12/19 Levothyroxine Sodium* (Levothyroxine Sodium*) 112 Mcg Tablet, 112 MCG PO BEFORE BREAKFAST, #30 TAB 02/12/19 Simvastatin* (Zocor*) 20 Mg Tablet, 20 MG PO QHS, #30 TAB 02/12/19 Solifenacin* (Vesicare*) 5 Mg Tablet, 5 MG PO DAILY, TAB 02/12/19 Insulin Aspart* (Novolog Insulin Pen*) 100 Unit/Ml Soln, 6 UNIT SC WITH MEALS, EA 02/12/19 Calcium Carbonate ([id number]) 500 Mg Tablet, 500 MG PO DAILY, TAB 02/12/19 Ergocalciferol (Vitamin D2) (VITAMIN D2) 50,000 Unit Capsule, 71527 UNIT PO Q7D, CAP 02/12/19 Meclizine Hcl* (Meclizine Hcl*) 25 Mg Tablet, 25 MG PO Q8H PRN for DIZZINESS, TAB 02/12/19 Ffxgintmov-Xiehwhjiq-HWBW (Exforge HCT) 10-320-25 Mg Tab, 1 EACH PO DAILY, TAB 02/12/19 Aspirin* (Aspirin* EC) 81 Mg Tablet.dr, 81 MG PO DAILY, TAB 02/12/19 Discontinued Reported Medications Insulin Human Isophan/Regular (Novolin 70/30) 100 Units/Ml Susp, 7 UNITS SQ BID 03/13/12 Sevelamer Carbonate* (Renvela*) 800 Mg Tablet, 800 MG PO TID 03/13/12 Glipizide* (Glucotrol*) 5 Mg Tablet, 5 MG PO DAILY 03/13/12 Calcitriol* (Rocaltrol*) 0.25 Mcg Capsule, 0.25 MCG PO DAILY 03/13/12 Captopril (Capoten) 12.5 Mg Tablet, 12.5 MG PO Q8 03/13/12 Levothyroxine Sodium (Tirosint) 112 Mcg Capsule, 112 MCG PO DAILY 10/01/11 Amlodipine Besylate* (Amlodipine Besylate*) 10 Mg Tablet, 10 MG PO DAILY 10/01/11 Calcitriol* (Calcitriol*) 0.25 Mcg Capsule, 0.25 MCG PO DAILY 08/01/11 Hydralazine Hcl* (Hydralazine Hcl*) 25 Mg Tablet, 50 MG PO BID, 0 Refills 08/01/11 Carvedilol* (Carvedilol*) 12.5 Mg Tablet, 12.5 MG PO BID 08/01/11 Aspirin (Aspirin) 81 Mg Tablet, 81 MG PO DAILY 08/01/11 Simvastatin (Simvastatin) 20 Mg Tablet, 20 MG PO QHS 08/01/11 Clonidine Hcl* (Clonidine Hcl*) 0.1 Mg Tab, 0.1 MG PO BID 08/01/11 Medications Current Medications Ondansetron HCl (Zofran Inj) 4 mg Q6H PRN IV NAUSEA AND/OR VOMITING; Start 02/12/19 at 16:30 Miscellaneous Information 1 ea NOTE XX ; Start 02/12/19 at 17:00 Glucose (Glutose) 15 gm Q15M PRN PO DECREASED GLUCOSE; Start 02/12/19 at 17:00 Glucose (Glutose) 22.5 gm Q15M PRN PO DECREASED GLUCOSE; Start 02/12/19 at 17:00 Dextrose (D50w Syringe) 25 ml Q15M PRN IV DECREASED GLUCOSE; Start 02/12/19 at 17:00 Dextrose (D50w Syringe) 50 ml Q15M PRN IV DECREASED GLUCOSE; Start 02/12/19 at 17:00 Glucagon (Glucagen) 1 mg Q15M PRN IM DECREASED GLUCOSE; Start 02/12/19 at 17:00 Glucose (Glutose) 15 gm Q15M PRN BUCCAL DECREASED GLUCOSE; Start 02/12/19 at 17:00 Acetaminophen (Tylenol Tab) 500 mg Q8H PRN PO MILD PAIN(1-3)OR ELEVATED TEMP Last administered on 02/16/19at 11:51; Admin Dose 500 MG; Start 02/14/19 at 10:00 Pantoprazole (Protonix Iv) 40 mg BID IV Last administered on 02/16/19at 08:43; Admin Dose 40 MG; Start 02/15/19 at 09:00 Polyethylene Glycol (Miralax) 17 gm DAILY PO Last administered on 02/16/19 08:43; Admin Dose 17 GM; Start 02/15/19 at 09:00 Docusate Sodium (Colace) 100 mg DAILY PO Last administered on 02/16/19 08:43; Admin Dose 100 MG; Start 02/15/19 at 09:00 Metoprolol Tartrate (Lopressor) 25 mg BID PO Last administered on 02/16/19 08:43; Admin Dose 25 MG; Start 02/15/19 at 21:00 Diagnostic Test (Pha) (Accu-Chek) 1 ea 02 XX Last administered on 02/16/19at 02:00; Admin Dose 1 EA; Start 02/16/19 at 02:00 Insulin Aspart (Novolog Insulin Pen) NOVOLOG *MODERATE* ALGORITHM WITH MEALS BEDTIME SC Last administered on 02/16/19at 11:59; Admin Dose 6 UNIT; Start 02/15/19 at 21:00 Assessment/Plan Hospital Course (Demo Recall) 1. History of BEST. The patient with history of BEST appears to be fairly clinically stable on examination. Continue to monitor now. Stable by exam. No ectopy on tele. 2. Congestive heart failure. The patient with heart failure, probably systolic, acute on chronic. Continue to remove fluid with hemodialysis. Better now. Improved. 3. Anemia. History of suspected GI bleed. Full anticoagulation has been stopped. Continue to monitor clinically now. GI follows. 4. Chest pain. Troponins are negative. We will follow expectantly. 5. Hypertension. Blood pressure fairly well controlled now. We will allow current regimen, patient is not on any blood pressure medication at this particular moment. 6. Diabetes. Continue diabetic optimization and care. We will continue to keep euvolemic. 7. NSVT 30 beats - I reviewed tele, SVT, likely a. tach vs a. fib with RVR - stable now - will follow - not anti-coag with anemia - now in sinus. ELISABETH DAILEY MD February 16, 2019 14:43
[2019-02-16] MEDS: BALSAM PERU/CASTOR OIL 60 GM TUBE TOP SCH (15:22)
[2019-02-17] VITALS (10 sets, daily range): BP systolic 91–155; BP diastolic 46–73; PULSE 86–102; RESP 16–24
[2019-02-17] MEDS: ACCU-CHEK XX SCH (01:59)
[2019-02-17] MEDS: DOCUSATE SODIUM 100 MG CAP PO SCH (08:23)
[2019-02-17] MEDS: POLYETHYLENE GLYCOL 17 GM PACKET PO SCH (08:24)
[2019-02-17] MEDS: BALSAM PERU/CASTOR OIL 60 GM TUBE TOP SCH (08:25)
[2019-02-17] MEDS: METOPROLOL 25 MG TAB PO SCH ×2 (08:26→20:26)
[2019-02-17] MEDS: INSULIN ASPART [NOVOLOG] 3 ML PEN SC SCH ×4 (08:39→20:29)
--- NOTE | 2019-02-17 08:41 | PN ---
DATE: 02/17/2019 SUBJECTIVE: The patient is stable, no events overnight. OBJECTIVE: VITAL SIGNS: Blood pressure is 102/53, pulse 89, respirations 16, temperature 98.8. HEENT: Head is normocephalic. NECK: Supple. HEART: Regular rate. LUNGS: Show diminished breath sounds at the base. ABDOMEN: Soft, nontender to palpation without rebound or guarding. EXTREMITIES: Negative for clubbing, cyanosis, no edema. DERMATOLOGIC: No rashes. MUSCULOSKELETAL: No joint effusion. NEUROLOGIC: No change in exam. MEDICATIONS: Reviewed. LABORATORY DATA: Reviewed. ASSESSMENT AND PLAN: 1. End-stage renal disease. The patient had hemodialysis yesterday, tolerated well. Plan is for di alysis tomorrow. 2. Anemia with questionable gastrointestinal bleed. The patient is status post EGD with positive ga stritis. Continue proton pump inhibitor. Continue Epogen. Monitor hemoglobin and hematocrit levels . 3. Mineral bone disorder. Monitor calcium and phosphorus levels. 4. Coronary artery disease. Continue current medical management. 5. Hypernatremia, improved. 6. Urinary tract infection. The patient is completing antibiotic course. 7. Left lower lobe mass. The patient is status post CT scan, which showed no evidence of mass. Con tinue to monitor. Dictated By: TRISTAN OKEEFE DO NR/NTS Conf#: [id number] DID#: [id number] CC: ROCIO COHEN MD; SHA ROSS MD;*EndCC*
[2019-02-17] MEDS: PANTOPRAZOLE 40 MG INJ IV SCH (10:07)
--- NOTE | 2019-02-17 12:36 | CONS ---
Consult Date/Type/Reason Admit Date/Time February 12, 2019 at 14:07 Initial Consult Date Type of Consult Pulmonary Requesting Provider: ROCIO COHEN MD Date/Time of Note DATE: 02/17/19 TIME: 12:35 Subjective Patient comfortable this morning no respiratory distress Objective Vital Signs Date Temp Pulse Resp B/P (MAP) Pulse Ox O2 O2 Flow FiO2 Time Delivery Rate 02/17/19 86 12:30 02/17/19 97.9 18 102/55 100 11:11 (71) 02/17/19 Nasal 3.0 08:05 Cannula Intake and Output 02/16/19 02/16/19 02/17/19 1515:00 23:00 07:00 IntakeIntake Total 500 ml 500 ml OutputOutput Total 0 ml BalanceBalance 500 ml 500 ml Exam GENERAL: Elderly Persian lady no respiratory distress VITAL SIGNS: per chart NECK: Supple. No JVD or lymphadenopathy. CARDIAC EXAM: S1, S2. No added sounds or murmurs. CHEST: clear bilaterally, No added sounds, rales or wheezes ABDOMEN: Soft, nontender. No guarding or rebound. EXTREMITIES: No cyanosis, clubbing or edema. NEUROLOGIC: Generalized weakness. No focal deficits. Results/Medications Result Diagram: 02/15/19 0542 02/15/19 0542 Results 24 hrs Laboratory Tests Test 02/16/19 17:52 02/16/19 19:59 02/17/19 08:13 Bedside Glucose 171 110 195 Medications Current Medications Ondansetron HCl (Zofran Inj) 4 mg Q6H PRN IV NAUSEA AND/OR VOMITING; Start 02/12/19 at 16:30 Miscellaneous Information 1 ea NOTE XX ; Start 02/12/19 at 17:00 Glucose (Glutose) 15 gm Q15M PRN PO DECREASED GLUCOSE; Start 02/12/19 at 17:00 Glucose (Glutose) 22.5 gm Q15M PRN PO DECREASED GLUCOSE; Start 02/12/19 at 17:00 Dextrose (D50w Syringe) 25 ml Q15M PRN IV DECREASED GLUCOSE; Start 02/12/19 at 17:00 Dextrose (D50w Syringe) 50 ml Q15M PRN IV DECREASED GLUCOSE; Start 02/12/19 at 17:00 Glucagon (Glucagen) 1 mg Q15M PRN IM DECREASED GLUCOSE; Start 02/12/19 at 17:00 Glucose (Glutose) 15 gm Q15M PRN BUCCAL DECREASED GLUCOSE; Start 02/12/19 at 17:00 Acetaminophen (Tylenol Tab) 500 mg Q8H PRN PO MILD PAIN(1-3)OR ELEVATED TEMP Last administered on 02/16/19at 20:37; Admin Dose 500 MG; Start 02/14/19 at 10:00 Pantoprazole (Protonix Iv) 40 mg BID IV Last administered on 02/17/19at 10:07; Admin Dose 40 MG; Start 02/15/19 at 09:00 Polyethylene Glycol (Miralax) 17 gm DAILY PO Last administered on 02/17/19 08:24; Admin Dose 17 GM; Start 02/15/19 at 09:00 Docusate Sodium (Colace) 100 mg DAILY PO Last administered on 02/17/19 08:23; Admin Dose 100 MG; Start 02/15/19 at 09:00 Metoprolol Tartrate (Lopressor) 25 mg BID PO Last administered on 02/16/19 08:43; Admin Dose 25 MG; Start 02/15/19 at 21:00 Diagnostic Test (Pha) (Accu-Chek) 1 ea 02 XX Last administered on 02/16/19at 02:00; Admin Dose 1 EA; Start 02/16/19 at 02:00 Insulin Aspart (Novolog Insulin Pen) NOVOLOG *MODERATE* ALGORITHM WITH MEALS BEDTIME SC Last administered on 02/17/19 08:39; Admin Dose 4 UNIT; Start 02/15/19 at 21:00 Epoetin Eduardo-epbx (Retacrit (Non-Esrd)) 10,000 unit TuThSa@1700 SC ; Start 02/18/19 at 17:00 Assessment/Plan Hospital Course (Demo Recall) Right IMPRESSION 1. Upper gastrointestinal bleed, status post endoscopy. 2. Anemia of chronic disease. 3. End-stage renal failure on hemodialysis. 4. Incidental finding of left lower lobe mass not seen on x-ray from 11/2017. Not seen on chest CT. Plan 1. Aspiration precautions GI recommendations. 2. Hemodialysis. 3. Serial hemoglobin and hematocrit. 4. Deep vein thrombosis and gastrointestinal prophylaxis. 5. Hemodialysis as tolerated. 6. Encourage out of bed DC planning. Discussed with staff JONATHAN VANCE MD, [facility] February 17, 2019 12:36
--- NOTE | 2019-02-17 13:39 | CONS ---
Assessment/Plan Assessment/Plan Hospital Course (Demo Recall) IMP: 1.TAVR 2.CHF-diastolic acute on chronic. EF 60-65% by echo this admit 3. ESRD on HD 4.HTN 5.DM 6.WCT-no recurrence. ? abberant SVT. 7. anemia/GIB s/p endoscopy with varices 8. POsituive troponin-minimal in the setting of renal failure-NL EF by ECho Recc: -Tele -Continue BB as tolerated to suppress any further tachyarrythmia -HD for volume removal -consider lexiscan stress test Consultation Date/Type/Reason Admit Date/Time February 12, 2019 at 14:07 Initial Consult Date 02/13/19 Type of Consult Cardiology Reason for Consultation TAVR/CHF Requesting Provider: ROCIO COHEN MD Date/Time of Note DATE: 02/17/19 TIME: 13:35 Exam/Review of Systems Vital Signs Vitals Vital Signs Date Temp Pulse Resp B/P (MAP) Pulse Ox O2 O2 Flow FiO2 Time Delivery Rate 02/17/19 86 12:30 02/17/19 97.9 18 102/55 100 11:11 (71) 02/17/19 Nasal 3.0 08:05 Cannula Intake and Output 02/16/19 02/16/19 02/17/19 1515:00 23:00 07:00 IntakeIntake Total 500 ml 500 ml OutputOutput Total 0 ml BalanceBalance 500 ml 500 ml Exam Exam Review of Systems: CONSTITUTIONAL: No fevers, chills. PULMONARY: No sob CARDIOVASCULAR: No chest pain/palpitations GASTROINTESTINAL: No nausea/vomiting. GENITOURINARY: No hematuria/dysuria. MUSCULOSKELETAL: No myagias/arthalgias. PSYCHIATRIC: The patient denies depression. NEUROLOGIC: No weakness Constitutional: alert Psych: no complaints Head: normocephalic ENMT: mucosa pink and moist Neck: supple, jvd (9 cm water) Respiratory: diminished breath sounds (at bases/B) Cardiovascular: regular rate and rhythm Gastrointestinal: soft, non-tender Musculoskeletal: muscle tone Extremities: edema (none) Neurological: other Labs Result Diagram: 02/15/19 0542 02/15/19 0542 Results 24hrs Laboratory Tests Test 02/16/19 17:52 02/16/19 19:59 02/17/19 08:13 02/17/19 12:42 Bedside Glucose 171 110 195 248 H Medications Medications Current Medications Ondansetron HCl (Zofran Inj) 4 mg Q6H PRN IV NAUSEA AND/OR VOMITING; Start 02/12/19 at 16:30 Miscellaneous Information 1 ea NOTE XX ; Start 02/12/19 at 17:00 Glucose (Glutose) 15 gm Q15M PRN PO DECREASED GLUCOSE; Start 02/12/19 at 17:00 Glucose (Glutose) 22.5 gm Q15M PRN PO DECREASED GLUCOSE; Start 02/12/19 at 17:00 Dextrose (D50w Syringe) 25 ml Q15M PRN IV DECREASED GLUCOSE; Start 02/12/19 at 17:00 Dextrose (D50w Syringe) 50 ml Q15M PRN IV DECREASED GLUCOSE; Start 02/12/19 at 17:00 Glucagon (Glucagen) 1 mg Q15M PRN IM DECREASED GLUCOSE; Start 02/12/19 at 17:00 Glucose (Glutose) 15 gm Q15M PRN BUCCAL DECREASED GLUCOSE; Start 02/12/19 at 17:00 Acetaminophen (Tylenol Tab) 500 mg Q8H PRN PO MILD PAIN(1-3)OR ELEVATED TEMP Last administered on 02/16/19at 20:37; Admin Dose 500 MG; Start 02/14/19 at 10:00 Pantoprazole (Protonix Iv) 40 mg BID IV Last administered on 02/17/19at 10:07; Admin Dose 40 MG; Start 02/15/19 at 09:00 Polyethylene Glycol (Miralax) 17 gm DAILY PO Last administered on 02/17/19at 08:24; Admin Dose 17 GM; Start 02/15/19 at 09:00 Docusate Sodium (Colace) 100 mg DAILY PO Last administered on 02/17/19at 08:23; Admin Dose 100 MG; Start 02/15/19 at 09:00 Metoprolol Tartrate (Lopressor) 25 mg BID PO Last administered on 02/16/19at 08:43; Admin Dose 25 MG; Start 02/15/19 at 21:00 Diagnostic Test (Pha) (Accu-Chek) 1 ea 02 XX Last administered on 02/16/19at 02:00; Admin Dose 1 EA; Start 02/16/19 at 02:00 Insulin Aspart (Novolog Insulin Pen) NOVOLOG *MODERATE* ALGORITHM WITH MEALS BEDTIME SC Last administered on 02/17/19at 12:43; Admin Dose 6 UNIT; Start 02/15/19 at 21:00 Epoetin Eduardo-epbx (Retacrit (Non-Esrd)) 10,000 unit TuThSa@1700 SC ; Start 02/18/19 at 17:00 TASHA DUFFY February 17, 2019 13:39
--- NOTE | 2019-02-17 17:57 | CONS ---
Assessment/Plan Assessment/Plan Assessment/Plan (Daily) Assessment/Plan Hospital Course (Demo Recall) 83 yo female with GI bleed, s/p EGD 02/13 1. Upper gastrointestinal bleeding. 2. Diabetes mellitus. 3. Renal failure. 4. Hypertension. 5. Gastritis 6. Esophagitis- class D 7. Esophageal ulcers 8. Anemia acute PLAN: Continue bowel regimen, dulcolax 10 mg x 1 Continue PPI bid Pending pathology, moderate chronic gastritis Monitor HH and for active gi bleeding, replace prn Spoke with son, Gonzalez, to update family on EGD results and provided education on diet changes Consultation Date/Type/Reason Admit Date/Time February 12, 2019 at 14:07 Initial Consult Date Requesting Provider: ROCIO COHEN MD Date/Time of Note DATE: 02/17/19 TIME: 17:57 24 HR Interval Summary Constitutional: no complaints, improved Exam/Review of Systems Exam Vitals Vital Signs Date Temp Pulse Resp B/P (MAP) Pulse Ox O2 O2 Flow FiO2 Time Delivery Rate 02/17/19 90 16:26 02/17/19 97.7 19 98/63 (75) 98 15:47 02/17/19 Nasal 3.0 08:05 Cannula Intake and Output 02/16/19 02/16/19 02/17/19 1515:00 23:00 07:00 IntakeIntake Total 500 ml 500 ml OutputOutput Total 0 ml BalanceBalance 500 ml 500 ml Constitutional: alert, oriented, well developed Psych: no complaints, nl mood/affect Head: normocephalic, atraumatic Eyes: nl conjunctiva, EOMI, nl lids, nl sclera, PERRL ENMT: nl external ears & nose, nl lips & teeth, nl nasal mucosa & septum Neck: supple, non-tender Respiratory: clear to auscultation, normal air movement Cardiovascular: regular rate and rhythm, nl pulses Gastrointestinal: soft, nl liver, spleen, non-tender Musculoskeletal: nl extremities to inspection, nl gait and stance Extremities: normal pulses Neurological: MD DO RESIDENT URGENT CARE II-XII intact, nl mental status, nl speech, nl strength Skin: nl turgor; No rash or lesions Lymph: nl lymph nodes Results Result Diagram: 02/15/19 0542 02/15/19 0542 Results 24hrs Laboratory Tests Test 02/16/19 19:59 02/17/19 08:13 02/17/19 12:42 02/17/19 17:46 Bedside Glucose 110 195 248 H 176 Medications Medication Current Medications Ondansetron HCl (Zofran Inj) 4 mg Q6H PRN IV NAUSEA AND/OR VOMITING; Start 02/12/19 at 16:30 Miscellaneous Information 1 ea NOTE XX ; Start 02/12/19 at 17:00 Glucose (Glutose) 15 gm Q15M PRN PO DECREASED GLUCOSE; Start 02/12/19 at 17:00 Glucose (Glutose) 22.5 gm Q15M PRN PO DECREASED GLUCOSE; Start 02/12/19 at 17:00 Dextrose (D50w Syringe) 25 ml Q15M PRN IV DECREASED GLUCOSE; Start 02/12/19 at 17:00 Dextrose (D50w Syringe) 50 ml Q15M PRN IV DECREASED GLUCOSE; Start 02/12/19 at 17:00 Glucagon (Glucagen) 1 mg Q15M PRN IM DECREASED GLUCOSE; Start 02/12/19 at 17:00 Glucose (Glutose) 15 gm Q15M PRN BUCCAL DECREASED GLUCOSE; Start 02/12/19 at 17:00 Acetaminophen (Tylenol Tab) 500 mg Q8H PRN PO MILD PAIN(1-3)OR ELEVATED TEMP Last administered on 02/16/19at 20:37; Admin Dose 500 MG; Start 02/14/19 at 10:00 Pantoprazole (Protonix Iv) 40 mg BID IV Last administered on 02/17/19at 10:07; Admin Dose 40 MG; Start 02/15/19 at 09:00 Polyethylene Glycol (Miralax) 17 gm DAILY PO Last administered on 02/17/19at 08:24; Admin Dose 17 GM; Start 02/15/19 at 09:00 Docusate Sodium (Colace) 100 mg DAILY PO Last administered on 02/17/19at 08:23; Admin Dose 100 MG; Start 02/15/19 at 09:00 Metoprolol Tartrate (Lopressor) 25 mg BID PO Last administered on 02/16/19at 08:43; Admin Dose 25 MG; Start 02/15/19 at 21:00 Diagnostic Test (Pha) (Accu-Chek) 1 ea 02 XX Last administered on 02/16/19at 02:00; Admin Dose 1 EA; Start 02/16/19 at 02:00 Insulin Aspart (Novolog Insulin Pen) NOVOLOG *MODERATE* ALGORITHM WITH MEALS BEDTIME SC Last administered on 02/17/19at 17:51; Admin Dose 2 UNIT; Start 02/15/19 at 21:00 Epoetin Eduardo-epbx (Retacrit (Non-Esrd)) 10,000 unit TuThSa@1700 SC ; Start at 17:00 SHA ROSS MD February 17, 2019 17:57
[2019-02-17] MEDS ORDERED: BETAMET NA PHOS/AC(6 MG/ML) 5ML INJ INJ ONE (19:00)
[2019-02-17] MEDS ORDERED: BUPIVACAINE 0.5%/EPI (SDV) 30 ML INJ INJ ONE (19:00)
--- NOTE | 2019-02-17 20:06 | PN ---
Date/Time of Note Date/Time of Note DATE: 02/17/19 TIME: 20:01 Assessment/Plan VTE Prophylaxis Risk score (from Ns)>0 risk: 7 SCD applied (from [facility]): No SCD contraindicated: other Pharmacological prophylaxis: LMWH Lines/Catheters IV C[facility]ter Type (from [facility] [place] [employer] line still needed: No Urinary Cath still in place: Yes Reason Cath still needed: urinary retention Assessment/Plan Assessment/Plan 1.Upper gi BLEEDING-esophageal varices and gastric bleeding which is now controlled according to Dr. Hurley. 2.CKD on HD. sceduled HD 02/18/2019 3.S/P TAVR 4.DM type 2 5.HTN with chf-better controlled 6.Anemia of chronic disease 7.Hx of cva 8.Postcva and senile dementia 9.MD 10.Urinary incontinence 11.Dyslipidemia 12.HX of falls 13.Severe muscular waisting 14.PAD 15.right gluteal and lbp 16.L/S scoliosis 17.OSIEL. 18. Cachexia 19. Major depression Result Diagram: 02/15/19 0542 02/15/19 0542 Results 24hrs Laboratory Tests Test 02/17/19 08:13 02/17/19 12:42 02/17/19 17:46 Bedside Glucose 195 248 H 176 Subjective 24 Hr Interval Summary Free Text/Dictation Weakness. I am forgetful. I do have occasional chills. I can get up myself. Constitutional: chills, poor po, requiring O2; No no complaints, No improved, No diaphoresis, No disoriented, No febrile, No requiring IVF, No other Eyes: No no complaints, No pain, No discharge, No redness, No visual change, No other ENT: congestion, dysphagia, sore throat; No no complaints, No bleeding, No pain, No discharge, No other Respiratory: cough, pleuritic pain, shortness of breath; No no complaints, No pain, No sputum, No wheezing, No other Cardiovascular: chest pain, lightheadedness, orthopenea, palpitations; No no complaints, No edema, No paroxysmal nocturnal dyspnea, No other Gastrointestinal: pain, constipation, decreased appetite, flatus, nausea, passing stool; No no complaints, No blood, No diarrhea, No vomiting, No other Genitourinary: dysuria, flank pain; No no complaints, No bleeding, No discharge, No hematuria, No other Musculoskeletal: back pain, bone/joint pain, neck pain; No no complaints, No restricted range of motion, No swelling, No other Skin: pruritis, rash; No no complaints, No bruising, No erythema, No laceration, No skin lesions, No other Neurologic: confusion, dizziness, headache; No no complaints, No focal-weakness, No syncope, No seizure, No other Endocrine: No no complaints, No polyuria, No polydypsia, No dry skin, No temp i ntolerance, No other Lymphatic: No no complaints, No adenopathy, No tender nodes, No lymphadema, No other Psychological: anxiety; No no complaints, No nl mood/affect, No confusion, No depression, No suicidal, No other Immunologic: No no complaints, No immunodeficiency, No pruritis, No rhinitis, No urticaria, No other Exam/Review of Systems Exam Vitals Vital Signs Date Temp Pulse Resp B/P (MAP) Pulse Ox O2 O2 Flow FiO2 Time Delivery Rate 02/17/19 90 16:26 02/17/19 97.7 19 98/63 (75) 98 15:47 02/17/19 Nasal 3.0 08:05 Cannula Intake and Output 02/16/19 02/16/19 02/17/19 1515:00 23:00 07:00 IntakeIntake Total 500 ml 500 ml OutputOutput Total 0 ml BalanceBalance 500 ml 500 ml Constitutional: alert, oriented (Not oriented in time oriented to time place people.), well developed, distress, frail; No non-verbal, No obese, No other Psych: anxiety, confusion; No no complaints, No nl mood/affect, No depression, No suicidal, No other Head: No normocephalic, No atraumatic, No lacerations, No hematomas, No other Eyes: EOMI, nl lids, PERRL; No nl conjunctiva, No nl sclera, No icteric, No fundi, disc, No other ENMT: nl nasal mucosa & septum; No nl external ears & nose, No nl lips & teeth, No mucosa pink and moist, No intubated, No tympanic membranes, No other Neck: jvd, bruits, thyromegaly, nuchal rigidity; No supple, No non-tender, No masses, No other Respiratory: normal air movement, congested cough, crackles/rales, diminished breath sounds; No clear to auscultation, No intercostal retraction, No labored breathing, No respirations, No tactile fremitus, No wheezing, No other Cardiovascular: regular rate and rhythm, bruits, edema, murmurs/extra sounds, systolic murmur; No nl pulses, No diastolic murmur, No gallop, No irregular rhythm, No jugular venous distention (JVD), No rub, No S3, No S4, No other Gastrointestinal: soft, nl liver, spleen, bowel sounds, rebound or guarding, splenomegaly; No non-tender, No ascites, No distended, No firm, No hepatomegaly, No mass, No surgical scars, No tender, No other Musculoskeletal: joint tenderness, muscle tone, muscle weakness (Severe decrease of muscular tone and posterior weakness.); No nl extremities to inspection, No nl gait and stance, No range of motion, No spine non-tender, No swelling, No other Extremities: normal pulses; No calf tenderness, No cyanosis, No clubbing, No edema, No pitting pedal edema, No palpable cord, No tenderness, No other Neurological: 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 (Doing impairment with difficulty to express herself with slurred speech she is claiming during conversation.); No nl mental status, No nl speech, No nl strength, No confused, No DTR's symmetric, No focal weakness, No lethargic, No numbness, No reflexes, No unresponsive, No other Skin: nl turgor (Decreased turgor.) Lymph: nl lymph nodes; No enlarged, No nontender, No other Results Results 24hrs Laboratory Tests Test 02/17/19 08:13 02/17/19 12:42 02/17/19 17:46 Bedside Glucose 195 248 H 176 Medications Medication Current Medications Ondansetron HCl (Zofran Inj) 4 mg Q6H PRN IV NAUSEA AND/OR VOMITING; Start 02/12/19 at 16:30 Miscellaneous Information 1 ea NOTE XX ; Start 02/12/19 at 17:00 Glucose (Glutose) 15 gm Q15M PRN PO DECREASED GLUCOSE; Start 02/12/19 at 17:00 Glucose (Glutose) 22.5 gm Q15M PRN PO DECREASED GLUCOSE; Start 02/12/19 at 17:00 Dextrose (D50w Syringe) 25 ml Q15M PRN IV DECREASED GLUCOSE; Start 02/12/19 at 17:00 Dextrose (D50w Syringe) 50 ml Q15M PRN IV DECREASED GLUCOSE; Start 02/12/19 at 17:00 Glucagon (Glucagen) 1 mg Q15M PRN IM DECREASED GLUCOSE; Start 02/12/19 at 17:00 Glucose (Glutose) 15 gm Q15M PRN BUCCAL DECREASED GLUCOSE; Start 02/12/19 at 17:00 Acetaminophen (Tylenol Tab) 500 mg Q8H PRN PO MILD PAIN(1-3)OR ELEVATED TEMP Last administered on 02/16/19at 20:37; Admin Dose 500 MG; Start 02/14/19 at 10:00 Polyethylene Glycol (Miralax) 17 gm DAILY PO Last administered on 02/17/19at 08:24; Admin Dose 17 GM; Start 02/15/19 at 09:00 Docusate Sodium (Colace) 100 mg DAILY PO Last administered on 02/17/19at 08:23; Admin Dose 100 MG; Start 02/15/19 at 09:00 Metoprolol Tartrate (Lopressor) 25 mg BID PO Last administered on 02/16/19at 08:43; Admin Dose 25 MG; Start 02/15/19 at 21:00 Diagnostic Test (Pha) (Accu-Chek) 1 ea 02 XX Last administered on 02/16/19at 02:00; Admin Dose 1 EA; Start 02/16/19 at 02:00 Insulin Aspart (Novolog Insulin Pen) NOVOLOG *MODERATE* ALGORITHM WITH MEALS BEDTIME SC Last administered on 02/17/19at 17:51; Admin Dose 2 UNIT; Start 02/15/19 at 21:00 Epoetin Eduardo-epbx (Retacrit (Non-Esrd)) 10,000 unit TuThSa@1700 SC ; Start 02/18/19 at 17:00 Pantoprazole (Protonix Tab) 40 mg BID@06,18 PO ; Start 02/18/19 at 06:00 ROCIO COHEN MD February 17, 2019 20:06
[2019-02-17] MEDS: ACETAMINOPHEN 500 MG TAB PO PRN (20:33)
--- NOTE | 2019-02-17 20:37 | CONS ---
DATE OF ADMISSION: 02/12/2019 DATE OF CONSULTATION: 02/17/2019 TYPE OF CONSULTATION: Orthopedic surgical. HISTORY OF PRESENT ILLNESS: The patient is an 83-year-old female who was admitted on 02/12/2019 when she came to emergency room complaining of hematemesis. She was found to have upper GI bleeding and she was admitted. PAST MEDICAL HISTORY: She is known to have end-stage renal disease, hypertension, hypercholesterolem ia. Orthopedic surgery was consulted because of the obvious painful limit of motion involving her both kn ees. According to the family members, she has been suffering from pain involving her both knees at [facility] for 5 years and in spite of the pain, she was able to ambulate herself; however during past few months, she was not able to stand up or walk. PHYSICAL EXAMINATION: My examination revealed that she is in bed with her knee flexed. Passive rang e of motion revealed that she may be developing a mild degree of flexion contracture. There was a ci rcumferential tenderness over both knees with the most tenderness over the joint line. Passive range of motion of the knee was painful. There was no effusion. There were no signs of pyogenic process. DIAGNOSTIC DATA: X-rays were not available yet. DIAGNOSTIC IMPRESSION: Degenerative osteoarthritis of both knees, probably advanced and symptomatic. TREATMENT PLAN: 1. Obtain x-rays of both knees. 2. Probably a trial of intraarticular steroid injection of both knees after reviewing the x-rays. 3. If her pain can be controlled with steroid injection, then we should try ambulation with physical therapy while her stay in this facility. Dictated By: CALEB PIERCE MD IK/NTS Conf#: [id number] DID#: [id number] CC: ROCIO COHEN MD; SHA ROSS MD;*EndCC*
[2019-02-18] VITALS (24 sets, daily range): BP systolic 88–135; BP diastolic 41–63; PULSE 68–91; RESP 17–19
[2019-02-18] MEDS: ACCU-CHEK XX SCH (01:55)
[2019-02-18] MEDS: PANTOPRAZOLE (EC) 40 MG TAB PO SCH ×2 (06:03→17:24)
[2019-02-18] MEDS: INSULIN ASPART [NOVOLOG] 3 ML PEN SC SCH ×3 (08:03→17:19)
--- NOTE | 2019-02-18 08:39 | PN ---
DATE: 02/18/2019 SUBJECTIVE: The patient is stable, no events overnight. OBJECTIVE: VITAL SIGNS: Blood pressure is 110/53, pulse 88, respirations 18, temperature 98.1. HEENT: Head is normocephalic. NECK: Supple. HEART: Regular rate. LUNGS: Show diminished breath sounds at the base. ABDOMEN: Soft, nontender to palpation without rebound or guarding. EXTREMITIES: Negative for clubbing, cyanosis, no edema. DERMATOLOGIC: No rashes. MUSCULOSKELETAL: No joint effusion. NEUROLOGIC: No change in exam. MEDICATIONS: Reviewed. LABORATORY DATA: Reviewed. ASSESSMENT AND PLAN: 1. End-stage renal disease. The patient is scheduled for dialysis today. We will dialyze for 3 italia rs 3k bath, calcium 2.5. 2. Anemia. Continue Epogen. Monitor hemoglobin and hematocrit levels. 3. Gastritis. Continue proton pump inhibitor. 4. Mineral bone disorder. Monitor calcium and phosphorus levels. 5. Coronary artery disease. Continue medical management. 6. Hypernatremia, improved. 7. Urinary tract infection. The patient is completing antibiotic course. 8. Left lower lobe mass. The patient is status post CT scan shows no evidence of mass. Continue to monitor. Dictated By: TRISTAN OKEEFE DO NR/NTS Conf#: [id number] DID#: [id number] CC: SHA ROSS MD; ROCIO COHEN MD;*EndCC*
--- NOTE | 2019-02-18 09:39 | CONS ---
Assessment/Plan Assessment/Plan Assessment/Plan (Daily) Assessment/Plan Hospital Course (Demo Recall) 83 yo female with GI bleed, s/p EGD 02/13 1. Upper gastrointestinal bleeding. Stable no further bleeding noted 2. Diabetes mellitus. 3. Renal failure. 4. Hypertension. 5. Gastritis 6. Esophagitis- class D 7. Esophageal ulcers 8. Anemia acute 9. Knee pain 10. Constipation PLAN: Continue bowel regimen, dulcolax 10 mg x 1 Continue PPI bid amities at 24 mcg twice daily Consultation Date/Type/Reason Admit Date/Time February 12, 2019 at 14:07 Initial Consult Date Requesting Provider: ROCIO COHEN MD Date/Time of Note DATE: 02/18/19 TIME: 09:38 24 HR Interval Summary Free Text/Dictation Patient complains of knee pain No abdominal pain no nausea no vomiting Exam/Review of Systems Exam Vitals Vital Signs Date Temp Pulse Resp B/P (MAP) Pulse Ox O2 O2 Flow FiO2 Time Delivery Rate 02/18/19 82 08:14 02/18/19 98.1 18 110/53 100 07:22 (72) 02/17/19 Nasal 3.0 20:25 Cannula Intake and Output 02/17/19 02/17/19 02/18/19 1515:00 23:00 07:00 IntakeIntake Total 400 ml 460 ml OutputOutput Total 0 ml 0 ml BalanceBalance 400 ml 460 ml Constitutional: alert, oriented, well developed Psych: no complaints, nl mood/affect Head: normocephalic, atraumatic Eyes: nl conjunctiva, EOMI, nl lids, nl sclera, PERRL ENMT: nl external ears & nose, nl lips & teeth, nl nasal mucosa & septum Neck: supple, non-tender Respiratory: clear to auscultation, normal air movement Cardiovascular: regular rate and rhythm, nl pulses Gastrointestinal: soft, nl liver, spleen, non-tender Musculoskeletal: nl extremities to inspection, nl gait and stance Extremities: normal pulses Neurological: 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 CONTRACT SPECIALIST II-XII 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, nl mental status, nl speech, nl strength Skin: nl turgor; No rash or lesions Lymph: nl lymph nodes Results Result Diagram: 02/15/19 0542 02/15/19 0542 Results 24hrs Laboratory Tests Test 02/17/19 12:42 02/17/19 17:46 02/17/19 20:27 02/18/19 01:46 Bedside Glucose 248 H 176 240 H 191 Test 02/18/19 08:01 Bedside Glucose 208 Medications Medication Current Medications Ondansetron HCl (Zofran Inj) 4 mg Q6H PRN IV NAUSEA AND/OR VOMITING; Start 02/12/19 at 16:30 Miscellaneous Information 1 ea NOTE XX ; Start 02/12/19 at 17:00 Glucose (Glutose) 15 gm Q15M PRN PO DECREASED GLUCOSE; Start 02/12/19 at 17:00 Glucose (Glutose) 22.5 gm Q15M PRN PO DECREASED GLUCOSE; Start 02/12/19 at 17:00 Dextrose (D50w Syringe) 25 ml Q15M PRN IV DECREASED GLUCOSE; Start 02/12/19 at 17:00 Dextrose (D50w Syringe) 50 ml Q15M PRN IV DECREASED GLUCOSE; Start 02/12/19 at 17:00 Glucagon (Glucagen) 1 mg Q15M PRN IM DECREASED GLUCOSE; Start 02/12/19 at 17:00 Glucose (Glutose) 15 gm Q15M PRN BUCCAL DECREASED GLUCOSE; Start 02/12/19 at 17:00 Acetaminophen (Tylenol Tab) 500 mg Q8H PRN PO MILD PAIN(1-3)OR ELEVATED TEMP Last administered on 02/17/19at 20:33; Admin Dose 500 MG; Start 02/14/19 at 10:00 Polyethylene Glycol (Miralax) 17 gm DAILY PO Last administered on 02/17/19at 08:24; Admin Dose 17 GM; Start 02/15/19 at 09:00 Docusate Sodium (Colace) 100 mg DAILY PO Last administered on 02/17/19at 08:23; Admin Dose 100 MG; Start 02/15/19 at 09:00 Metoprolol Tartrate (Lopressor) 25 mg BID PO Last administered on 02/16/19at 08:43; Admin Dose 25 MG; Start 02/15/19 at 21:00 Diagnostic Test (Pha) (Accu-Chek) 1 ea 02 XX Last administered on 02/18/19at 01:55; Admin Dose 1 EA; Start 02/16/19 at 02:00 Insulin Aspart (Novolog Insulin Pen) NOVOLOG *MODERATE* ALGORITHM WITH MEALS BEDTIME SC Last administered on 02/18/19at 08:03; Admin Dose 4 UNIT; Start 02/15/19 at 21:00 Epoetin Eduardo-epbx (Retacrit (Non-Esrd)) 10,000 unit TuThSa@1700 SC ; Start 01/28 12/15 at 17:00 Pantoprazole (Protonix Tab) 40 mg BID@06,18 PO Last administered on 02/18/19at 06:03; Admin Dose 40 MG; Start 02/18/19 at 06:00 Lubiprostone (Amitiza) 24 mcg BID PO ; Start 02/18/19 at 21:00; Status UNSHA GARNETT MD February 18, 2019 09:39
--- NOTE | 2019-02-18 09:39 | CONS ---
Assessment/Plan Assessment/Plan Assessment/Plan (Daily) Assessment and recommendations; 1. Patient admitted with upper GI bleed status post EGD without any further recurrence. 2. Chronic renal failure, on hemodialysis. Continue current supportive care. Consider discharge. Consultation Date/Type/Reason Admit Date/Time February 12, 2019 at 14:07 Initial Consult Date Type of Consult Pulmonary Reason for Consultation Patient's condition is stable. Remains awake and alert. Has remained hemodynamically stable. No upper GI bleed reported. General exam; elderly male, awake alert, currently no distress. Requesting Provider: ROCIO COHEN MD Date/Time of Note DATE: 02/18/19 TIME: 09:37 Exam/Review of Systems Exam Vitals Vital Signs Date Temp Pulse Resp B/P (MAP) Pulse Ox O2 O2 Flow FiO2 Time Delivery Rate 02/18/19 82 08:14 02/18/19 98.1 18 110/53 100 07:22 (72) 02/17/19 Nasal 3.0 20:25 Cannula Intake and Output 02/17/19 02/17/19 02/18/19 1515:00 23:00 07:00 IntakeIntake Total 400 ml 460 ml OutputOutput Total 0 ml 0 ml BalanceBalance 400 ml 460 ml Exam HEENT exam; supple neck, no JVD. No lymphadenopathy. Midline trachea. No thyromegaly. No neck masses. On 2 L nasal cannula. Chest exam; clear to auscultation. S1-S2 audible, no murmurs. Regular rhythm. Abdomen exam; soft, nontender. No organomegaly. Bowel sounds audible. Extremity exam; no peripheral edema clubbing. STEAM HAND exam; no focal deficit. Results Result Diagram: 02/15/19 0542 02/15/19 0542 Results 24hrs Laboratory Tests Test 02/17/19 12:42 02/17/19 17:46 02/17/19 20:27 02/18/19 01:46 Bedside Glucose 248 H 176 240 H 191 Test 02/18/19 08:01 Bedside Glucose 208 Medications Medication Current Medications Ondansetron HCl (Zofran Inj) 4 mg Q6H PRN IV NAUSEA AND/OR VOMITING; Start 02/12/19 at 16:30 Miscellaneous Information 1 ea NOTE XX ; Start 02/12/19 at 17:00 Glucose (Glutose) 15 gm Q15M PRN PO DECREASED GLUCOSE; Start 02/12/19 at 17:00 Glucose (Glutose) 22.5 gm Q15M PRN PO DECREASED GLUCOSE; Start 02/12/19 at 17:00 Dextrose (D50w Syringe) 25 ml Q15M PRN IV DECREASED GLUCOSE; Start 02/12/19 at 17:00 Dextrose (D50w Syringe) 50 ml Q15M PRN IV DECREASED GLUCOSE; Start 02/12/19 at 17:00 Glucagon (Glucagen) 1 mg Q15M PRN IM DECREASED GLUCOSE; Start 02/12/19 at 17:00 Glucose (Glutose) 15 gm Q15M PRN BUCCAL DECREASED GLUCOSE; Start 02/12/19 at 17:00 Acetaminophen (Tylenol Tab) 500 mg Q8H PRN PO MILD PAIN(1-3)OR ELEVATED TEMP Last administered on 02/17/19at 20:33; Admin Dose 500 MG; Start 02/14/19 at 10:00 Polyethylene Glycol (Miralax) 17 gm DAILY PO Last administered on 02/17/19at 08:24; Admin Dose 17 GM; Start 02/15/19 at 09:00 Docusate Sodium (Colace) 100 mg DAILY PO Last administered on 02/17/19at 08:23; Admin Dose 100 MG; Start 02/15/19 at 09:00 Metoprolol Tartrate (Lopressor) 25 mg BID PO Last administered on 02/16/19at 08:43; Admin Dose 25 MG; Start 02/15/19 at 21:00 Diagnostic Test (Pha) (Accu-Chek) 1 ea 02 XX Last administered on 02/18/19at 01:55; Admin Dose 1 EA; Start 02/16/19 at 02:00 Insulin Aspart (Novolog Insulin Pen) NOVOLOG *MODERATE* ALGORITHM WITH MEALS BEDTIME SC Last administered on 02/18/19at 08:03; Admin Dose 4 UNIT; Start 02/15/19 at 21:00 Epoetin Eduardo-epbx (Retacrit (Non-Esrd)) 10,000 unit TuThSa@1700 SC ; Start 02/18/19 at 17:00 Pantoprazole (Protonix Tab) 40 mg BID@06,18 PO Last administered on 02/18/19at 06:03; Admin Dose 40 MG; Start 5/23/19 at 06:00 Lubiprostone (Amitiza) 24 mcg BID PO ; Start 02/18/19 at 21:00; Status CRISTINE NICE February 18, 2019 09:39
[2019-02-18] MEDS ORDERED: LUBIPROSTONE 24 MCG CAP PO SCH (10:00)
[2019-02-18] MEDS: POLYETHYLENE GLYCOL 17 GM PACKET PO SCH (10:02)
[2019-02-18] MEDS: METOPROLOL 25 MG TAB PO SCH (10:02)
[2019-02-18] MEDS: DOCUSATE SODIUM 100 MG CAP PO SCH (10:02)
--- NOTE | 2019-02-18 11:05 | PDOCDIS ---
Discharge Instructions CONDITION [id number] Patient Condition: [id number] Guarded HOME CARE INSTRUCTIONS: [id number] Diet Instructions: [id number] Reduced Sodium ACTIVITY: [id number] Activity Restrictions: [id number] Slowly Increase Activity [id number] Bathing Restrictions: [id number] Sponge Bath FOLLOW UP/APPOINTMENTS Follow-up Plan In 5 days to primary care physician. They are to to the dulite machine bluer to continue hemodialysis. Plan to transfer to sn[facility] facility which has physical therapy and rehabilitation service SCHOOL/WORK RELEASE May return to School/Work with: ROCIO Gonzalez MD February 18, 2019 11:04
[2019-02-18] MEDS ORDERED: Acetaminophen PO (11:07)
[2019-02-18] MEDS ORDERED: METO-448 PO (11:07)
[2019-02-18] MEDS ORDERED: Epoetin Alfa-Epbx (Non-Esrd) SC (11:07)
--- NOTE | 2019-02-18 11:11 | DS ---
Date/Time of Note Date/Time of Note DATE: 02/18/19 TIME: 11:09 Discharge Summary Admission/Discharge Info Admit Date/Time February 12, 2019 at 14:07 Discharge Date/Time February 18, 2019 at18 PM Patient Condition: Guarded Hx of Present Illness bloody vomitus x 2 days. Hospital Course The patient was admitted with septic condition hypotensive tachycardic with altered level of consciousness UTI. She continues to have a back pain on the right hip pain and she is getting more lethargic than before discussed with the family. It would be difficult for her to stay alone at home she lives in separate department. Plan to transfer to the custodial facility for 2 to 3 weeks to assess if she able to take care of herself or with the above at least one person. Then plan sending her back home. Home Meds Active Scripts [Acetaminophen Tab] 500 MG TAB No Conflict Check, 500 MG PO Q8H PRN for MILD PAIN(1-3)OR ELEVATED TEMP for 30 Days, #90 TAB Prov:CADEN COHEN MD 02/18/19 Metoprolol Tartrate* (Lopressor*) 25 Mg Tab, 25 MG PO BID for 30 Days, #60 TAB Prov:CADEN COHEN MD 02/18/19 [Epoetin Eduardo-Epbx (Non-Esrd)] 66841 UNIT/1 ML SOLUTION No Conflict Check, 56326 UNIT SC TuThSa@1700 for 14 Days, #1 Prov:CADEN COHEN MD 02/18/19 Reported Medications Glipizide* (Glipizide*) 5 Mg Tablet, 5 MG PO AC BREAKFAST, TAB 02/12/19 Quetiapine Fumarate* (Seroquel* XR) 50 Mg Tab.sr.24h, 50 MG PO DAILY, #30 TAB 02/12/19 Mirtazapine* (Mirtazapine*) 30 Mg Tablet, 30 MG PO HS, TAB 02/12/19 Tramadol Hcl* (Ultram*) 50 Mg Tablet, 50 MG PO DAILY PRN for PAIN, TAB 02/12/19 Levothyroxine Sodium* (Levothyroxine Sodium*) 112 Mcg Tablet, 112 MCG PO BEFORE BREAKFAST, #30 TAB 02/12/19 Simvastatin* (Zocor*) 20 Mg Tablet, 20 MG PO QHS, #30 TAB 02/12/19 Solifenacin* (Vesicare*) 5 Mg Tablet, 5 MG PO DAILY, TAB 02/12/19 Insulin Aspart* (Novolog Insulin Pen*) 100 Unit/Ml Soln, 6 UNIT SC WITH MEALS, EA 02/12/19 Calcium Carbonate ([id number]) 500 Mg Tablet, 500 MG PO DAILY, TAB 02/12/19 Ergocalciferol (Vitamin D2) (VITAMIN D2) 50,000 Unit Capsule, 34286 UNIT PO Q7D, CAP 02/12/19 Meclizine Hcl* (Meclizine Hcl*) 25 Mg Tablet, 25 MG PO Q8H PRN for DIZZINESS, TAB 02/12/19 Wezsjbrvkh-Znhtenzfw-ZABQ (Exforge HCT) 10-320-25 Mg Tab, 1 EACH PO DAILY, TAB 02/12/19 Aspirin* (Aspirin* EC) 81 Mg Tablet.dr, 81 MG PO DAILY, TAB 02/12/19 Discontinued Reported Medications Insulin Human Isophan/Regular (Novolin 70/30) 100 Units/Ml Susp, 7 UNITS SQ BID 03/13/12 Sevelamer Carbonate* (Renvela*) 800 Mg Tablet, 800 MG PO TID 03/13/12 Glipizide* (Glucotrol*) 5 Mg Tablet, 5 MG PO DAILY 03/13/12 Calcitriol* (Rocaltrol*) 0.25 Mcg Capsule, 0.25 MCG PO DAILY 03/13/12 Captopril (Capoten) 12.5 Mg Tablet, 12.5 MG PO Q8 03/13/12 Levothyroxine Sodium (Tirosint) 112 Mcg Capsule, 112 MCG PO DAILY 10/01/11 Amlodipine Besylate* (Amlodipine Besylate*) 10 Mg Tablet, 10 MG PO DAILY 10/01/11 Calcitriol* (Calcitriol*) 0.25 Mcg Capsule, 0.25 MCG PO DAILY 08/01/11 Hydralazine Hcl* (Hydralazine Hcl*) 25 Mg Tablet, 50 MG PO BID, 0 Refills 08/01/11 Carvedilol* (Carvedilol*) 12.5 Mg Tablet, 12.5 MG PO BID 08/01/11 Aspirin (Aspirin) 81 Mg Tablet, 81 MG PO DAILY 08/01/11 Simvastatin (Simvastatin) 20 Mg Tablet, 20 MG PO QHS 08/01/11 Clonidine Hcl* (Clonidine Hcl*) 0.1 Mg Tab, 0.1 MG PO BID 08/01/11 Follow-up Plan In 5 days to primary care physician. They are to to the deburr technician to continue hemodialysis. Plan to transfer to custodial facility which has physical therapy and rehabilitation service Primary Care Provider Caden Cohen MD Pending Labs Laboratory Tests Test 02/17/19 12:42 02/17/19 17:46 02/17/19 20:27 02/18/19 01:46 Bedside 248 176 240 191 Glucose mg/dL (70-220) mg/dL (70-220) mg/dL (70-220) mg/dL (70-220) Test 02/18/19 08:01 Bedside 208 Glucose mg/dL (70-220) CADEN COHEN MD February 18, 2019 11:11
[2019-02-18] MEDS: BALSAM PERU/CASTOR OIL 60 GM TUBE TOP SCH (15:15)
[2019-02-18] MEDS ORDERED: EPOETIN ALFA-EPBX (NON-ESRD 10,000 UNIT/ML VIAL SC SCH (17:00)
== END 2019-02-18 19:10 | DRG 380 ==
LOC: E/R 11:37 → TEL 14:07
PROVIDERS: ADMIT Family Medicine; ATTEND Family Medicine
PROC: 0DB68ZX Excision of Stomach, Via Natural or Artificial Opening Endoscopic, Diagnostic (ICD-10-PCS; 2019-02-13)
PROC: 5A1D70Z Performance of Urinary Filtration, Intermittent, Less than 6 Hours Per Day (ICD-10-PCS; principal; 2019-02-14)
DX: K22.11 Ulcer of esophagus with bleeding (principal); N18.6 End stage renal disease; I50.23 Acute on chronic systolic (congestive) heart failure; N39.0 Urinary tract infection, site not specified; E87.0 Hyperosmolality and hypernatremia; I13.2 Hypertensive heart and chronic kidney disease with heart failure and with stage 5 chronic kidney disease, or end stage renal disease; I47.1 Supraventricular tachycardia; D62 Acute posthemorrhagic anemia; K92.0 Hematemesis; E11.22 Type 2 diabetes mellitus with diabetic chronic kidney disease; Z99.2 Dependence on renal dialysis; E78.5 Hyperlipidemia, unspecified; E03.9 Hypothyroidism, unspecified; J44.9 Chronic obstructive pulmonary disease, unspecified; D63.1 Anemia in chronic kidney disease; I25.10 Atherosclerotic heart disease of native coronary artery without angina pectoris; Z91.81 History of falling; R32 Unspecified urinary incontinence; Z86.73 Personal history of transient ischemic attack (TIA), and cerebral infarction without residual deficits; F03.90 Unspecified dementia, unspecified severity, without behavioral disturbance, psychotic disturbance, mood disturbance, and anxiety; Z95.2 Presence of prosthetic heart valve; K29.00 Acute gastritis without bleeding; I73.9 Peripheral vascular disease, unspecified; K20.9 Esophagitis, unspecified; M17.0 Bilateral primary osteoarthritis of knee
CPT/HCPCS: 71045; 71250; 72100; 72170; 72220; 80048; 80053; 80061; 81001; 82550; 82553; 82962; 83690; 83735; 84100; 84443; 84484; 85025; 85610; 85730; 86706; 87086; 87340; 88305; 88312; 90935; 93306; 96365; 96375; 96376; 97161; 97165; 97535; C9113; J0692; J0702; J1815; J2270; J2405; J7030; J7040; Q5106

== ENCOUNTER 2019-02-22 01:50 | Inpatient (IN) | payer MEDICARE, OTHER ==
[~2019-02-22] VITALS: Ht 160 cm; Wt 56.0 kg
[~2019-02-22 01:50] MED LIST changes: -AMLO-147 PO; +AMLO-349 PO; -ASPI-650 PO; +ASPI-817 PO; +Acetaminophen PO; -CALC0.2511 PO; -CALC0.255 PO; +CALC500T91 PO; -CARV12.579 PO; -CLON-379 PO; +ERGO500013 PO; +Epoetin Alfa-Epbx (Non-Esrd) SC; +GLIP5TAB13 PO; -GLIP5TAB3 PO; -HUM100VI14 SQ; -HYDR25TA98 PO; -LEVO112C PO; +LEVO112T57 PO; +MECL-77 PO; +METO-448 PO; +MIRT30TA5 PO; +NOVO3I SC; +QUET50TA5 PO; -SEVE800T7 PO; +SIMV20TA PO; -SIMV20TA2 PO; +SOLI5TAB2 PO; +TRAM50TA PO; -[UNRECOGNIZED DRUG - CODE] PO
[2019-02-22] MEDS ORDERED: PANTOPRAZOLE 40 MG INJ IV ONE ×2 (02:00→08:30)
[2019-02-22] MEDS ORDERED: SODIUM CHLORIDE 0.9% 1L BAG IV* STA (03:22)
[2019-02-22] MEDS ORDERED: PIPER-TAZO 3.375 GM IV (PMX) 100 ML IVPB ONE (03:30)
[2019-02-22] MEDS ORDERED: FENTAnyl 50 MCG/ML VIAL IV ONE ×2 (04:30→05:30)
[2019-02-22] MEDS ORDERED: ACETAMINOPHEN 325 MG TAB PO PRN (06:30)
[2019-02-22] MEDS ORDERED: ONDANSETRON 4 MG INJ IV PRN ×2 (06:30→11:30)
[2019-02-22] MEDS ORDERED: ACET-141 PO (06:55)
[2019-02-22] MEDS ORDERED: EPO10ESRD SC (06:56)
--- NOTE | 2019-02-22 07:26 | ERD ---
ER Documentation Chief Complaint Chief Complaint HEMATEMESIS X 1 HPI This is an 83-year-old female with a past medical history of hypertension, hyperlipidemia, diabetes, hypothyroidism, end-stage renal disease on dialysis, dementia, recent GI bleed, recent admission for UTI sepsis, discharged 4 days ago to a skilled nurse facility, now presenting to the emergency department for recurrent GI bleeding and significant abdominal pain. History and physical is limited secondary to chronic altered mentation. ROS All systems reviewed and are negative except as per history of present illness. Medications Home Meds Active Scripts Metoprolol Tartrate* (Lopressor*) 25 Mg Tab, 25 MG PO BID for 30 Days, #60 TAB Prov:ROCIO COHEN MD 02/18/19 Reported Medications Epoetin Eduardo (Epogen) 10,000 Units/Ml Soln, 57452 UNITS SC TUE,THUR,SAT, VIAL 02/22/19 Acetaminophen* (Acetaminophen*) 500 MG Extra Strength Tablet, 500 MG PO Q8 PRN f or MILD PAIN LEVEL 1-3, TAB 02/22/19 Glipizide* (Glipizide*) 5 Mg Tablet, 5 MG PO AC BREAKFAST, TAB 02/12/19 Quetiapine Fumarate* (Seroquel* XR) 50 Mg Tab.sr.24h, 50 MG PO DAILY, #30 TAB 02/12/19 Mirtazapine* (Mirtazapine*) 30 Mg Tablet, 30 MG PO HS, TAB 02/12/19 Tramadol Hcl* (Ultram*) 50 Mg Tablet, 50 MG PO DAILY PRN for PAIN, TAB 02/12/19 Levothyroxine Sodium* (Levothyroxine Sodium*) 112 Mcg Tablet, 112 MCG PO BEFORE BREAKFAST, #30 TAB 02/12/19 Simvastatin* (Zocor*) 20 Mg Tablet, 20 MG PO QHS, #30 TAB 02/12/19 Solifenacin* (Vesicare*) 5 Mg Tablet, 5 MG PO DAILY, TAB 02/12/19 Insulin Aspart* (Novolog Insulin Pen*) 100 Unit/Ml Soln, 6 UNIT SC WITH MEALS, EA 02/12/19 Calcium Carbonate ([id number]) 500 Mg Tablet, 500 MG PO DAILY, TAB 02/12/19 Ergocalciferol (Vitamin D2) (VITAMIN D2) 50,000 Unit Capsule, 62990 UNIT PO Q7D, CAP 5/17/19 Meclizine Hcl* (Meclizine Hcl*) 25 Mg Tablet, 25 MG PO Q8H PRN for DIZZINESS, TAB 02/12/19 Nawzwefxkk-Mvxkxywte-IQPI (Exforge HCT) 10-320-25 Mg Tab, 1 EACH PO DAILY, TAB 02/12/19 Aspirin* (Aspirin* EC) 81 Mg Tablet.dr, 81 MG PO DAILY, TAB 02/12/19 Discontinued Scripts [Acetaminophen Tab] 500 MG TAB No Conflict Check, 500 MG PO Q8H PRN for MILD PAIN(1-3)OR ELEVATED TEMP for 30 Days, #90 TAB Prov:ROCIO COHEN MD 02/18/19 [Epoetin Eduardo-Epbx (Non-Esrd)] 69515 UNIT/1 ML SOLUTION No Conflict Check, 15591 UNIT SC TuThSa@1700 for 14 Days, #1 Prov:ROCIO COHEN MD 02/18/19 Allergies Allergies: Coded Allergies: vancomycin (Verified Allergy, Unknown, Rash all over body, 02/22/19) PMhx/Soc History of Surgery: Yes (EFRAIN FISTULA, TAVR) Anesthesia Reaction: No Hx Neurological Disorder: No Hx Respiratory Disorders: No Hx Cardiac Disorders: Yes (CHF, HTN, HIGH CHOLESTEROL) Hx Psychiatric Problems: No Hx Miscellaneous Medical Probl: Yes (GI BLEED, DEMENTIA , HTN, CAD, ESRD ON HD (T, TH, SAT) .) Hx Alcohol Use: No Hx Substance Use: No Hx Tobacco Use: No Smoking Status: Former smoker FmHx Family History: diabetes Physical Exam Vitals Vital Signs Date Temp Pulse Resp B/P (MAP) Pulse Ox O2 O2 Flow FiO2 Time Delivery Rate 02/22/19 96 39 97/47 (64) 100 Nasal 2.0 05:48 Cannula 02/22/19 90 40 92/45 (61) 100 Nasal 2.0 04:00 Cannula 02/22/19 Nasal 2 02:46 Cannula 02/22/19 91 45 95/45 (62) 98 Nasal 2.0 02:05 Cannula 02/22/19 96.9 92 40 105/43 99 01:59 (63) Physical Exam Const: In acute distress Head: Atraumatic Eyes: Normal Conjunctiva ENT: Normal External Ears, Nose and Mouth. Neck: Full range of motion. No meningismus. Resp: Tachypneic. Coarse breath sounds. Cardio: Regular rate and rhythm, no murmurs Abd: Firm distended abdomen with diffuse tenderness. Skin: No petechiae or rashes Back: No midline or flank tenderness Ext: No cyanosis, or edema. Left upper extremity graft. Neur: Awake and alert no facial droop. Moves all extremities spontaneously. Result Diagram: 02/22/196 02/22/19 0226 Results 24 hrs Laboratory Tests Test 02/22/19 02:26 White Blood Count 26.2 10^3/ul Red Blood Count 3.21 10^6/ul Hemoglobin 9.3 g/dl Hematocrit 30.4 % Mean Corpuscular Volume 94.7 fl Mean Corpuscular Hemoglobin 29.0 pg Mean Corpuscular Hemoglobin Concent 30.6 g/dl Red Cell Distribution Width 16.4 % Platelet Count 309 10^3/UL Mean Platelet Volume 10.8 fl Immature Granulocytes % 3.300 % Neutrophils % % Segmented Neutrophils % (Manual) 78 % Band Neutrophils % (Manual) 3 % Lymphocytes % % Lymphocytes % (Manual) 10 % Monocytes % % Monocytes % (Manual) 6 % Eosinophils % % Basophils % % Basophils % (Manual) 1 % Myelocytes % (Manual) 2 % Nucleated Red Blood Cells % 0.0 /100WBC Immature Granulocytes # 0.870 10^3/ul Neutrophils # 10^3/ul Neutrophils # (Manual) 20.6 10^3/ul Band Neutrophils # 0.7 10^3/ul Lymphocytes (Manual) 2.6 10^3/ul Lymphocytes # 10^3/ul Monocytes # 10^3/ul Monocytes # (Manual) 1.5 10^3/ul Eosinophils # 10^3/ul Basophils # 10^3/ul Basophils # (Manual) 0.2 10^3/ul Myelocytes # 0.5 10^3/ul Nucleated Red Blood Cells # 10^3/ul Platelet Estimate NORMAL Platelet Morphology Comment @See below Polychromasia 1+ Poikilocytosis 1+ Anisocytosis 1+ Prothrombin Time 13.3 Sec Prothrombin Time Ratio 1.0 INR International Normalized Ratio 1.00 Activated Partial Thromboplast Time 25.8 Sec Sodium Level 140 mmol/L Potassium Level 4.4 mmol/L Chloride Level 92 mmol/L Carbon Dioxide Level 33 mmol/L Anion Gap 15 Blood Urea Nitrogen 55 mg/dl Creatinine 4.33 mg/dl Est Glomerular Filtrat Rate mL/min mL/min Glucose Level 226 mg/dl Calcium Level 8.7 mg/dl Total Bilirubin 0.2 mg/dl Direct Bilirubin 0.00 mg/dl Indirect Bilirubin 0.2 mg/dl Aspartate Amino Transf (AST/SGOT) 34 IU/L Alanine Aminotransferase (ALT/SGPT) 17 IU/L Alkaline Phosphatase 117 IU/L Troponin I 0.124 ng/ml Total Protein 7.6 g/dl Albumin 3.4 g/dl Globulin 4.20 g/dl Albumin/Globulin Ratio 0.80 Current Medications Medications Dose Sig/Tom Start Time Status Last (Trade) Ordered Route PRN Stop Time Admin Dose Reason Admin 80 mg ONCE ONCE 02/22/19 DC 02/22/19 Pantoprazole IV 02:00 02:31 (Protonix 02/22/19 02:01 Iv) Sodium 1,570 ml BOLUS OVER 2 02/22/19 DC 02/22/19 Chloride HOURS STAT 03:22 04:29 (NS) IV* 02/22/19 03:24 Piperacillin 100 ml @ ONCE ONCE 02/22/19 DC 02/22/19 Sod/ 200 mls/hr IVPB 03:30 04:29 Tazobactam 02/22/19 03:59 Sod Fentanyl 25 mcg ONCE ONCE 02/22/19 DC 02/22/19 (Sublimaze) IV 04:30 04:33 02/22/19 04:31 Fentanyl 25 mcg ONCE ONCE 02/22/19 DC 02/22/19 (Sublimaze) IV 05:30 05:21 02/22/19 05:31 Ondansetron 4 mg ER BRIDGE 02/22/19 HCl (Zofran PRN IV 06:30 Inj) NAUSEA/VOMITI 02/23/19 06:29 NG 650 mg ER BRIDGE 02/22/19 Acetaminophen PRN PO 06:30 (Tylenol .MILD PAIN 02/23/19 06:29 Tab) 1-3 OR TEMP Procedures/MDM MDM The patient's presentation warrants further investigation. Previous medical records, if available, were reviewed. LABS The patient's laboratory testing was obtained and reviewed. No emergent treatment was required unless described below. CBC: Leukocytosis, concerning for infection. Normocytic anemia, not emergent, though this is in the setting of a likely GI bleed. No E/o thrombocytopenia Chemistry: Metabolic alkalosis. Elevated BUN and creatinine in line with end- stage renal disease. Hyperglycemia without DKA. No E/o severe acidosis or liver disease or diabetic ketoacidosis PT/INR: No E/o significant coagulopathy Troponin: Elevated, though this is in the setting of end-stage renal disease. EKG EKG read by me: Rate/Rhythm: Regular rate and rhythm at a rate of 93 bpm Intervals: Normal [place]: Left axis Impression: Nonspecific repolarization changes in the inferolateral leads without evidence of acute ischemia. No arrhythmia IMAGING Imaging and Radiology interpretation reviewed. CXR FINDINGS: Cardiomegaly is again seen as well as atherosclerotic aorta. Basilar atelectasis or infiltrates are unchanged compared with prior fingerprint classifier view. No gross free air. Mild interstitial prominence of the lungs. Degenerative change of the spine. Significant distension of the colon with air and mottled stool. No definite free air. IMPRESSION: Bibasilar atelectasis or infiltrates. Significantly distended colon as noted on CT.. Electronically viewed and signed by Physician Ranulfo on 02/22/2019 04:34 CT abdomen pelvis IMPRESSION: 1. Small bowel distension without transition point. Significant distension of the colon with air and liquid stool with abrupt transition at the descending - sigmoid junction. Large complex mixed attenuation area adjacent could represent a contained perforation and perforated colonic neoplasm must be considered although contained perforation of diverticulitis is also possible. Follow-up CT with intravenous contrast may be helpful. Enteric contrast may be less helpful due to a degree of obstruction or partial obstruction. 2. Basilar atelectasis or infiltrates. 3. The stomach is distended with air and fluid. The esophagus is significantly distended with fluid and there is esophageal wall thickening suggesting possible reflux esophagitis. 4. The gallbladder is slightly distended. Layering density within may reflect tiny stones. No biliary ductal dilatation. Results were called to Radha Bonilla at 02/22/2019 5:04:24 AM Electronically viewed and signed by Physician Ranulfo on 02/22/2019 05:04 TREATMENT/DISPOSITION The patient presents for what appears to be a possible perforated colonic neoplasm with severe bowel obstruction. There is also evidence of an infection. When the patient's white blood cell count came back with such significant leukocytosis, I did opt to complete a septic work-up. The patient's lactic acid was greater than 2, and I did proceed with a sepsis bolus and broad-spectrum antibiotics. The patient's systolic blood pressure was maintained above 90. The on-call general surgeon, Dr. Hernández, was consulted on the case. He thought that the patient's presentation would require surgery. However, after discussion with the family, the patient is a poor candidate for such an invasive procedure, it was ultimately decided that the patient was not a good candidate for surgery. The patient was treated with multiple doses of fentanyl in the [facility] department for pain control. The discussion was had with the family about making the patient comfort measures only. There is also concern for a GI bleed. The patient did not require blood tra nsfusion in the emergency department. The patient was given Protonix. A blood type and screen was sent off. The patient does have end-stage renal disease. The admitting physician will need to have a discussion with the family regarding continuation of dialysis. The patient's troponin is elevated, but this is in the setting of end-stage renal disease. Her symptoms are not consistent with acute coronary syndrome. SEPSIS NOTE SIRS Criteria: Tachypnea, leukocytosis Infectious source: Intra-abdominal End organ damage indicated by: Lactate > 2.0 mmol/L, Cr > 2.0 SEPSIS MANAGEMENT Time to recognize sepsis: 3 AM. Time to recognize severe sepsis: 3 AM. Time to recognize septic shock: No septic shock at this time. 3 HOUR BUNDLE Blood cultures x 2 before abx: Yes 30 ml/kg NS bolus completed Initial lactate 2.3 Repeat lactate pending SEPTIC SHOCK ASSESSMENT: NO lactic acid > 4.0 NO persistent hypotension (SBP < 90 or 40 mmHg drop, MAP < 65) despite 30 L/kg IV fluid bolus CRITICAL CARE Critical care time 35 minutes Emergent fluid management while maintaining close respiratory support. Provision of immediate and broad-spectrum antibiotic therapy. Simultaneous as sessment for possible sources in order to direct targeted therapy. Consideration for invasive and chemical support to prevent cardiopulmonary collapse. Critical care time is independent of procedures performed. ADMISSION At this time, I feel that the patient requires admission for further evaluation and management. The patient will be admitted to [facility] in accordance with the patient's insurance. The patient was accepted to the ICU at 6AM on 02/22/2019 The on-call general surgeon, Dr. Hernández, was consulted on the case and evaluated the patient in the emergency department. After discussion with the family, the decision was made that the patient was not a surgical candidate. Disclaimer: Inadvertent spelling and grammatical errors are likely due to EHR/dictation software use and do not reflect on the overall quality of patient care. Note that the electronic time recorded on this note does not necessarily reflect the actual time of the patient encounter. Departure Diagnosis: Primary Impression: Perforated abdominal viscus Additional Impressions: Colonic mass Severe sepsis Peritonitis Leukocytosis Leukocytosis type: unspecified Qualified Codes: D72.829 - Elevated white blood cell count, unspecified Normocytic anemia Metabolic alkalosis End stage renal disease Hyperglycemia Elevated troponin Condition: Critical RADHA READ MD February 22, 2019 07:23
--- NOTE | 2019-02-22 07:37 | CONS ---
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 The patient's only hope for survival will be with prompt surgical intervention. I have had a long discussion with the patient's 3 sons. I have explained to them that if the patient survives surgery that she would certainly have a temporary colostomy. The sons feel that because of the patient's overall frail condition, her dementia, and her lack of responsiveness and lack of meaningful quality of life, that they would not agree with surgery but rather would agree with palliative care and comfort measures. The tentatively plan surgery has been canceled. Will initiate palliative care measures. Consultation Date/Type/Reason Admit Date/Time Date of Consultation: February 22, 2019 Type of Consult General surgery Reason for Consultation Perforated viscus Date/Time of Note DATE: 02/22/19 TIME: 07:30 Hx of Present Illness The patient is an 83-year-old female [facility]. Roly benitez is demented, bedbound and requires hemodialysis. According to the sons, she has been having difficulty with dialysis lately. She is admitted now because of an episode of hematemesis. In the emergency room she was noted to be hypotensive with an elevated white blood cell count of 26,000. A CT scan showed a contained perforation of the colon at the junction of the sigmoid and descending colon. This was either due to diverticulitis or neoplasm. Surgery consultation was requested. Review of systems: HEENT: Unknown Pulmonary: No known history of pneumonia Cardiac: No known history of [facility] Abdomen: As in the HPI : Unknown Past Medical History Medical History: coronary artery disease, other (Renal failure requiring dialysis) Home Meds Active Scripts Metoprolol Tartrate* (Lopressor*) 25 Mg Tab, 25 MG PO BID for 30 Days, #60 TAB Prov:ROCIO COHEN MD 02/18/19 Reported Medications Epoetin Eduardo (Epogen) 10,000 Units/Ml Soln, 01652 UNITS SC TUE,CONNIEUR,SAT, VIAL 02/22/19 Acetaminophen* (Acetaminophen*) 500 MG Extra Strength Tablet, 500 MG PO Q8 PRN for MILD PAIN LEVEL 1-3, TAB 02/22/19 Glipizide* (Glipizide*) 5 Mg Tablet, 5 MG PO AC BREAKFAST, TAB 02/12/19 Quetiapine Fumarate* (Seroquel* XR) 50 Mg Tab.sr.24h, 50 MG PO DAILY, #30 TAB 02/12/19 Mirtazapine* (Mirtazapine*) 30 Mg Tablet, 30 MG PO HS, TAB 02/12/19 Tramadol Hcl* (Ultram*) 50 Mg Tablet, 50 MG PO DAILY PRN for PAIN, TAB 02/12/19 Levothyroxine Sodium* (Levothyroxine Sodium*) 112 Mcg Tablet, 112 MCG PO BEFORE BREAKFAST, #30 TAB 02/12/19 Simvastatin* (Zocor*) 20 Mg Tablet, 20 MG PO QHS, #30 TAB 02/12/19 Solifenacin* (Vesicare*) 5 Mg Tablet, 5 MG PO DAILY, TAB 02/12/19 Insulin Aspart* (Novolog Insulin Pen*) 100 Unit/Ml Soln, 6 UNIT SC WITH MEALS, EA 02/12/19 Calcium Carbonate ([id number]) 500 Mg Tablet, 500 MG PO DAILY, TAB 02/12/19 Ergocalciferol (Vitamin D2) (VITAMIN D2) 50,000 Unit Capsule, 22822 UNIT PO Q7D, CAP 02/12/19 Meclizine Hcl* (Meclizine Hcl*) 25 Mg Tablet, 25 MG PO Q8H PRN for DIZZINESS, TAB 02/12/19 Tlcbozggcp-Nwbhtowob-ULMB (Exforge HCT) 10-320-25 Mg Tab, 1 EACH PO DAILY, TAB 02/12/19 Aspirin* (Aspirin* EC) 81 Mg Tablet.dr, 81 MG PO DAILY, TAB 02/12/19 Discontinued Scripts [Acetaminophen Tab] 500 MG TAB No Conflict Check, 500 MG PO Q8H PRN for MILD PAIN(1-3)OR ELEVATED TEMP for 30 Days, #90 TAB Prov:ROCIO COHEN MD 02/18/19 [Epoetin Eduardo-Epbx (Non-Esrd)] 38386 UNIT/1 ML SOLUTION No Conflict Check, 37262 UNIT SC TuThSa@1700 for 14 Days, #1 Prov:ROCIO COHEN MD 02/18/19 Medications Current Medications Ondansetron HCl (Zofran Inj) 4 mg ER BRIDGE PRN IV NAUSEA/VOMITING Last administered on 02/22/19at 07:15; Admin Dose 4 MG; Start 02/22/19 at 06:30; Stop 02/23/19 at 06:29 Acetaminophen (Tylenol Tab) 650 mg ER BRIDGE PRN PO .MILD PAIN 1-3 OR TEMP; Start 02/22/19 at 06:30; Stop 02/23/19 at 06:29 Allergies: Coded Allergies: vancomycin (Verified Allergy, Unknown, Rash all over body, 02/22/19) Past Surgical History Past Surgical Hx: no surgical history Family History Significant Family History: no pertinent family hx Social History Smoking Status: Former smoker Exam/Review of Systems Exam Vitals Vital Signs Date Temp Pulse Resp B/P (MAP) Pulse Ox O2 O2 Flow FiO2 Time Delivery Rate 02/22/19 105 39 119/65 100 Nasal 2.0 07:23 (83) Cannula 02/22/19 96.9 01:59 Constitutional: non-verbal, frail Psych: other (Flat affect) Head: normocephalic Eyes: nl conjunctiva ENMT: nl external ears & nose Neck: supple Respiratory: clear to auscultation Cardiovascular: regular rate and rhythm Gastrointestinal: tender (Tender left abdomen with guarding and rebound) Results Result Diagram: 02/22/19 0226 02/22/19 0226 Results 24hrs Laboratory Tests Test 02/22/19 02:26 02/22/19 04:26 White Blood Count 26.2 #H Red Blood Count 3.21 L Hemoglobin 9.3 L Hematocrit 30.4 L Mean Corpuscular Volume 94.7 Mean Corpuscular Hemoglobin 29.0 Mean Corpuscular Hemoglobin Concent 30.6 L Red Cell Distribution Width 16.4 H Platelet Count 309 # Mean Platelet Volume 10.8 H Immature Granulocytes % 3.300 H Neutrophils % Segmented Neutrophils % (Manual) 78 H Band Neutrophils % (Manual) 3 Lymphocytes % Lymphocytes % (Manual) 10 L Monocytes % Monocytes % (Manual) 6 Eosinophils % Basophils % Basophils % (Manual) 1 Myelocytes % (Manual) 2 H Nucleated Red Blood Cells % 0.0 Immature Granulocytes # 0.870 H Neutrophils # Neutrophils # (Manual) 20.6 H Band Neutrophils # 0.7 H Lymphocytes (Manual) 2.6 Lymphocytes # Monocytes # Monocytes # (Manual) 1.5 H Eosinophils # Basophils # Basophils # (Manual) 0.2 H Myelocytes # 0.5 H Nucleated Red Blood Cells # Platelet Estimate NORMAL Platelet Morphology Comment @See below Polychromasia 1+ Poikilocytosis 1+ Anisocytosis 1+ Prothrombin Time 13.3 Prothrombin Time Ratio 1.0 INR International Normalized Ratio 1.00 Activated Partial Thromboplast Time 25.8 Sodium Level 140 Potassium Level 4.4 Chloride Level 92 L Carbon Dioxide Level 33 H Anion Gap 15 H Blood Urea Nitrogen 55 H Creatinine 4.33 H Est Glomerular Filtrat Rate mL/min Glucose Level 226 H Calcium Level 8.7 Total Bilirubin 0.2 Direct Bilirubin 0.00 Indirect Bilirubin 0.2 Aspartate Amino Transf (AST/SGOT) 34 Alanine Aminotransferase (ALT/SGPT) 17 Alkaline Phosphatase 117 Troponin I 0.124 *H Total Protein 7.6 Albumin 3.4 Globulin 4.20 H Albumin/Globulin Ratio 0.80 POC Venous Lactate 2.8 *H Medications Medication Current Medications Ondansetron HCl (Zofran Inj) 4 mg ER BRIDGE PRN IV NAUSEA/VOMITING Last administered on 02/22/19at 07:15; Admin Dose 4 MG; Start 02/22/19 at 06:30; Stop 02/23/19 at 06:29 Acetaminophen (Tylenol Tab) 650 mg ER BRIDGE PRN PO .MILD PAIN 1-3 OR TEMP; Start 02/22/19 at 06:30; Stop 02/23/19 at 06:29 CRISELDA RUIZ MD February 22, 2019 07:37
--- NOTE | 2019-02-22 08:22 | HP ---
Date/Time of Note Date/Time of Note DATE: 02/22/19 TIME: 08:08 Assessment/Plan VTE Prophylaxis SCD contraindicated: other Pharmacological prophylaxis: other (no) Pharm contraindication: bleeding Lines/Catheters IV Catheter Type (from Nrsg): [employer] line still needed: No Urinary Cath still in place: Yes Reason Cath still needed: urinary retention Assessment/Plan Assessment/Plan 1.sepsis. Most probably due to perforation of left side of the colon according to the CT report and the junction of the descending colon and sigmoid with peritonitis. Possible tumor possible perforated diverticulum or another cause of obstruction. Family decided not to perform a surgery which is the only possible hope at this stage of evaluation and management. I had a conversation with the family too we will start with conservative treatment which is not the best choice at this moment but final decision will be after other family will be involved and a final decision will be made at that time. No surgery for now. Changed initially planned ICU admission to the floor. Will start empiric treatment with the plan to change to possible palliative care hospice. 2. Altered level of consciousness-multifactorial but the main reason now sepsis and hypotension bleeding. 3.Upper gi BLEEDING-esophageal varices and gastric bleeding; gastroscopy done about a week ago by Dr. Hurley. 4.CKD on HD. called. 5.HTN with chf-better controlled 6.Anemia of chronic disease 7.Hx of cva 8.Postcva and senile dementia 9.MD 10.Urinary incontinence 11.Dyslipidemia 12.HX of falls 13.Severe muscular waisting 14.PAD 15.right gluteal and lbp 16.L/S scoliosis 17.OSIEL. 18. Cachexia 19. Major depression 20.S/P TAVR 21.DM type 2 Result Diagram: 02/22/196 02/22/196 Results 24hrs Laboratory Tests Test 02/22/19 02:26 02/22/19 04:26 02/22/19 06:59 White Blood Count 26.2 #H Red Blood Count 3.21 L Hemoglobin 9.3 L Hematocrit 30.4 L Mean Corpuscular Volume 94.7 Mean Corpuscular Hemoglobin 29.0 Mean Corpuscular Hemoglobin Concent 30.6 L Red Cell Distribution Width 16.4 H Platelet Count 309 # Mean Platelet Volume 10.8 H Immature Granulocytes % 3.300 H Neutrophils % Segmented Neutrophils % (Manual) 78 H Band Neutrophils % (Manual) 3 Lymphocytes % Lymphocytes % (Manual) 10 L Monocytes % Monocytes % (Manual) 6 Eosinophils % Basophils % Basophils % (Manual) 1 Myelocytes % (Manual) 2 H Nucleated Red Blood Cells % 0.0 Immature Granulocytes # 0.870 H Neutrophils # Neutrophils # (Manual) 20.6 H Band Neutrophils # 0.7 H Lymphocytes (Manual) 2.6 Lymphocytes # Monocytes # Monocytes # (Manual) 1.5 H Eosinophils # Basophils # Basophils # (Manual) 0.2 H Myelocytes # 0.5 H Nucleated Red Blood Cells # Platelet Estimate NORMAL Platelet Morphology Comment @See below Polychromasia 1+ Poikilocytosis 1+ Anisocytosis 1+ Prothrombin Time 13.3 Prothrombin Time Ratio 1.0 INR International Normalized Ratio 1.00 Activated Partial Thromboplast Time 25.8 Sodium Level 140 Potassium Level 4.4 Chloride Level 92 L Carbon Dioxide Level 33 H Anion Gap 15 H Blood Urea Nitrogen 55 H Creatinine 4.33 H Est Glomerular Filtrat Rate mL/min Glucose Level 226 H Calcium Level 8.7 Total Bilirubin 0.2 Direct Bilirubin 0.00 Indirect Bilirubin 0.2 Aspartate Amino Transf (AST/SGOT) 34 Alanine Aminotransferase (ALT/SGPT) 17 Alkaline Phosphatase 117 Troponin I 0.124 *H Total Protein 7.6 Albumin 3.4 Globulin 4.20 H Albumin/Globulin Ratio 0.80 POC Venous Lactate 2.8 *H Lactic Acid Level 2.0 HPI/ROS Admit Date/Time Admit Date/Time History was taken from RN of retirement facility [facility]. Patient had a hemoptysis last night. Transferred to the hospital which was done. Evaluated the patient had a conversation with the 3 sons of the patient and read the report to Dr. Hernández, a surgeon. The patient is confused although is able to answer some questions. It is evident that she is not fully aware of what is going on with her. On my questioning the pain she stated no. But when I touch the abdomen she screamed because it is very painful particularly left lower quadrant. Then she agreed that there is a pain on my question to treat today she stated yes but according to the RN food was not given the office was correct she was vomiting with coffee-ground about 30 minutes before of my arrival according to the RN. Had a conversation with the ER physician. No more information is available from the patient now due to her mental status. ROS Subjective hx not possible: other (Confusion. Unable to provide information.) PMH/Family/Social Past Medical History Medical History: angina, colitis, congestive heart failure, coronary artery d isease, diabetes, diverticulitis, GERD, GI bleed, high cholesterol, hypertension, irritable bowel syndrome, other (Renal failure requiring dialysis) Medications Current Medications Ondansetron HCl (Zofran Inj) 4 mg ER BRIDGE PRN IV NAUSEA/VOMITING Last admi nistered on 02/22/19at 07:15; Admin Dose 4 MG; Start 02/22/19 at 06:30; Stop 02/23/19 at 06:29 Acetaminophen (Tylenol Tab) 650 mg ER BRIDGE PRN PO .MILD PAIN 1-3 OR TEMP; Start 02/22/19 at 06:30; Stop 02/23/19 at 06:29 Coded Allergies: vancomycin (Verified Allergy, Unknown, Rash all over body, 02/22/19) Past Surgical History Past Surgical Hx: no surgical history, other (TAVR.) Family History Significant Family History: no pertinent family hx, heart disease Social History Alcohol Use: none Smoking Status: Former smoker Drug Use: none Exam/Review of Systems Vital Signs Vitals Vital Signs Date Temp Pulse Resp B/P (MAP) Pulse Ox O2 O2 Flow FiO2 Time Delivery Rate 02/22/19 105 39 119/65 100 Nasal 2.0 07:23 (83) Cannula 02/22/19 96.9 01:59 Exam Constitutional: alert, oriented (Not oriented in time she knows she is in the hospital she recognized me she forgot the name of 3 sounds were in the emergency room.), well developed, distress, frail; No non-verbal, No other Psych: anxiety, confusion, depression; No no complaints, No nl mood/affect, No suicidal, No other Head: normocephalic, atraumatic; No lacerations, No hematomas, No other Eyes: EOMI, nl lids, nl sclera (Pale conjunctiva.), PERRL; No nl conjunctiva, No icteric, No fundi, disc, No other ENMT: No nl external ears & nose, No nl lips & teeth, No nl nasal mucosa & septum, No mucosa pink and moist, No intubated, No tympanic membranes, No other Neck: bruits, nuchal rigidity; No supple, No non-tender, No jvd, No masses, No thyromegaly, No other Respiratory: clear to auscultation, normal air movement, diminished breath sounds; No congested cough, No crackles/rales, No intercostal retraction, No labored breathing, No respirations, No tactile fremitus, No wheezing, No other Cardiovascular: regular rate and rhythm, nl pulses, systolic murmur; No bruits, No diastolic murmur, No edema, No gallop, No irregular rhythm, No jugular venous distention (JVD), No murmurs/extra sounds, No rub, No S3, No S4, No other Gastrointestinal: soft, distended, firm, rebound or guarding, other (Patient tender distended abdomen most painful pointing to the left lower quadrant left upper quadrant of the abdomen with no rebound tenderness very painful after the first touch.) Genitourinary - Female: other (Impossible to perform no vaginal discharge.) Musculoskeletal: joint tenderness, muscle tone, muscle weakness (Muscular tone and muscular mass decreased.), other (Unable to get up alone that redone); No nl extremities to inspection, No nl gait and stance, No range of motion, No spine non-tender, No swelling Extremities: normal pulses (Called extremities), pitting pedal edema Neurological: FRAME ASSEMBLER II-XII intact (Hearing impairment.), nl mental status (Confused disoriented with poor insight and poor memory.); No nl speech, No nl strength, No confused, No DTR's symmetric, No focal weakness, No lethargic, No numbness, No reflexes, No unresponsive, No other Skin: nl turgor (Decreased); No rash or lesions, No diaphoresis, No ecchymosis, No laceration, No puncture, No other Lymph: nl lymph nodes; No enlarged, No nontender, No other ROCIO COHEN MD February 22, 2019 08:22
[2019-02-22] MEDS ORDERED: VANCOMYCIN 1 GM (PMX) 250 ML IVPB ONE (08:30)
[2019-02-22] MEDS ORDERED: metroNIDAZOLE 500 MG/NS (PMX) 100 ML IVPB SCH (09:00)
[2019-02-22] MEDS ORDERED: FAMOTIDINE 20 MG INJ IV SCH (09:00)
[2019-02-22 09:31] VITALS: BP 100/61; PULSE 72; RESP 19
[2019-02-22] MEDS: morphine 2 MG INJ IV PRN ×4 (11:51→21:57)
[2019-02-22] MEDS: DEXTROSE 5%-0.9% NACL 1,000 ML IV SCH (11:52)
--- NOTE | 2019-02-22 14:05 | CONS ---
DATE OF ADMISSION: 02/22/2019 DATE OF CONSULTATION: TYPE OF CONSULTATION: Nephrology. REASON FOR CONSULTATION: End-stage renal disease. REQUESTING PHYSICIAN: Dr. Cohen. HISTORY OF PRESENT ILLNESS: This is an 83-year-old female with a past medical history of end-stage r enal disease on dialysis Friday, Friday, Friday, access AV fistula, history of hypertension, coron dorothy artery disease and mineral bone disorder who was recently admitted to the [facility] with anemia and possible gastrointestinal bleed. The patient at that time had an EGD and colon oscopy and found to have evidence of gastritis. The patient also was treated for UTI. The patient n ow presents with recurrent upper GI bleeding and significant abdominal pain. 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 The patient in the emergency room was made comfort care and admitted to med/surg. The patient was evaluated by general surgery with no plan for surgical intervention. In terms of patient's renal history, the patient has end-stage renal disease on dialysis 3 times week ly, access AV fistula. PAST MEDICAL HISTORY: As stated above, history of end-stage renal disease, history of anemia, histor y of mineral bone disorder, history of hypertension, history of diabetes. PAST SURGICAL HISTORY: Status post left upper extremity AV fistula, history of TAVR. FAMILY HISTORY: No family history of kidney disease. SOCIAL HISTORY: Does not drink, smoke or do drugs. MEDICATIONS: The patient's medications have been reviewed. REVIEW OF SYSTEMS: A 14-point review of systems was conducted. Pertinent positives stated in HPI, o therwise negative. PHYSICAL EXAMINATION: VITAL SIGNS: Blood pressure is 107/55, respirations are 39, pulse 103, temperature 98.2. HEENT: Head is normocephalic. NECK: Supple. HEART: Regular rate. LUNGS: Show diminished breath sounds at the base. ABDOMEN: Soft, positive tenderness to palpation, positive rebound. EXTREMITIES: Negative for clubbing, cyanosis. Trace edema. DERMATOLOGIC: No rashes. MUSCULOSKELETAL: No joint effusion. NEUROLOGIC: No change in exam. LABORATORY DATA: The patient's medications have been reviewed. IMAGING STUDIES: Have been reviewed. ASSESSMENT AND PLAN: This is an 83-year-old female who presents with: 1. End-stage renal disease. The patient is on dialysis, [facility], and Friday. Access AV fistula. Will define goals of care with the patient's primary care physician, Dr. Cohen. I did speak with the patient's family and they wish to continue dialysis if it provides comfort. Will ther efore anticipate possible hemodialysis tomorrow. 2. Anemia. Monitor hemoglobin and hematocrit levels. Will give Epogen as needed. 3. Mineral bone disorder, monitor calcium and phosphorus levels. 4. Sepsis secondary to perforated colon. Continue broad spectrum antibiotics. No plan for surgical intervention, monitor. 5. Bowel perforation, possibly due to a diverticular versus questionable neoplasm. As stated above continue conservative management. No plan for intervention. Continue antibiotic therapy, continue p ain control. 6. Hypertension. Continue current blood pressure regimen. 7. Encephalopathy on top of dementia. Continue to monitor. 8. Elevated troponin, possible non-STEMI type 2 versus type 1. Continue to monitor. Thank you, Dr. Cohen, for this interesting consult. It will be a pleasure to follow patient with you throughout the hospital course. Dictated By: TRISTAN OKEEFE DO NR/NTS Conf#: [id number] DID#: [id number] CC: ROCIO COHEN MD;*EndCC*
--- NOTE | 2019-02-22 15:16 | CONS ---
Consultation Date/Type/Reason Admit Date/Time History was taken from RN of halfway facility [facility]. Patient had a hemoptysis last night. Transferred to the hospital which was done. Evaluated the patient had a conversation with the 3 sons of the patient and read the report to Dr. Hernández, a surgeon. The patient is confused although is able to answer some questions. It is evident that she is not fully aware of what is going on with her. On my questioning the pain she stated no. But when I touch the abdomen she screamed because it is very painful particularly left lower quadrant. Then she agreed that there is a pain on my question to treat today she stated yes but according to the RN food was not given the office was correct she was vomiting with coffee-ground about 30 minutes before of my arrival according to the RN. Had a conversation with the ER physician. No more information is available from the patient now due to her mental status. Date/Time of Note DATE: 02/22/19 TIME: 15:15 Past Medical History Medical History: angina, colitis, congestive heart failure, coronary artery disease, diabetes, diverticulitis, GERD, GI bleed, high cholesterol, hypertension, irritable bowel syndrome, other (Renal failure requiring dialysis) Home Meds Discontinued Reported Medications Epoetin Eduardo (Epogen) 10,000 Units/Ml Soln, 15627 UNITS SC KRISSY,RICHARD,SAT, VIAL 02/22/19 Acetaminophen* (Acetaminophen*) 500 MG Extra Strength Tablet, 500 MG PO Q8 PRN for MILD PAIN LEVEL 1-3, TAB 02/22/19 Glipizide* (Glipizide*) 5 Mg Tablet, 5 MG PO AC BREAKFAST, TAB 02/12/19 Quetiapine Fumarate* (Seroquel* XR) 50 Mg Tab.sr.24h, 50 MG PO DAILY, #30 TAB 02/12/19 Mirtazapine* (Mirtazapine*) 30 Mg Tablet, 30 MG PO HS, TAB 02/12/19 Tramadol Hcl* (Ultram*) 50 Mg Tablet, 50 MG PO DAILY PRN for PAIN, TAB 02/12/19 Levothyroxine Sodium* (Levothyroxine Sodium*) 112 Mcg Tablet, 112 MCG PO BEFORE BREAKFAST, #30 TAB 02/12/19 Simvastatin* (Zocor*) 20 Mg Tablet, 20 MG PO QHS, #30 TAB 02/12/19 Solifenacin* (Vesicare*) 5 Mg Tablet, 5 MG PO DAILY, TAB 02/12/19 Insulin Aspart* (Novolog Insulin Pen*) 100 Unit/Ml Soln, 6 UNIT SC WITH MEALS, EA 02/12/19 Calcium Carbonate (Yyti-Dkr-303) 500 Mg Tablet, 500 MG PO DAILY, TAB 02/12/19 Ergocalciferol (Vitamin D2) (VITAMIN D2) 50,000 Unit Capsule, 54053 UNIT PO Q7D, CAP 02/12/19 Meclizine Hcl* (Meclizine Hcl*) 25 Mg Tablet, 25 MG PO Q8H PRN for DIZZINESS, TAB 02/12/19 Dfwuamphoo-Doezdtwva-ZKZP (Exforge HCT) 10-320-25 Mg Tab, 1 EACH PO DAILY, TAB 02/12/19 Aspirin* (Aspirin* EC) 81 Mg Tablet.dr, 81 MG PO DAILY, TAB 02/12/19 Discontinued Scripts [Acetaminophen Tab] 500 MG TAB No Conflict Check, 500 MG PO Q8H PRN for MILD PAIN(1-3)OR ELEVATED TEMP for 30 Days, #90 TAB Prov:ROCIO COHEN MD 02/18/19 Metoprolol Tartrate* (Lopressor*) 25 Mg Tab, 25 MG PO BID for 30 Days, #60 TAB Prov:ROCIO COHEN MD 02/18/19 [Epoetin Eduardo-Epbx (Non-Esrd)] 48256 UNIT/1 ML SOLUTION No Conflict Check, 67134 UNIT SC TuThSa@1700 for 14 Days, #1 Prov:ROCIO COHEN MD 02/18/19 Medications Current Medications Ondansetron HCl (Zofran Inj) 4 mg ER BRIDGE PRN IV NAUSEA/VOMITING Last administered on 02/22/19at 07:15; Admin Dose 4 MG; Start 02/22/19 at 06:30; Stop 02/23/19 at 06:29 Acetaminophen (Tylenol Tab) 650 mg ER BRIDGE PRN PO .MILD PAIN 1-3 OR TEMP; Start 02/22/19 at 06:30; Stop 02/23/19 at 06:29 Metronidazole 100 ml @ 100 mls/hr BID IVPB Last administered on 02/22/19at 11:52; Admin Dose 100 MLS/HR; Start 02/22/19 at 09:00 Dextrose/Sodium Chloride 1,000 ml @ 70 mls/hr [id number] IV Last administered on 02/22/19at 11:52; Admin Dose 70 MLS/HR; Start 02/22/19 at 11:30 Ondansetron HCl (Zofran Inj) 4 mg Q6H PRN IV NAUSEA AND/OR VOMITING; Start 02/22/19 at 11:30 Morphine Sulfate (morphine) 2 mg Q2H PRN IV PAIN LEVEL 6-10; Start 02/22/19 at 15:30 Allergies: Coded Allergies: vancomycin (Verified Allergy, Unknown, Rash all over body, 02/22/19) Past Surgical History Past Surgical Hx: no surgical history, other (TAVR.) Social History Alcohol Use: none Smoking Status: Former smoker Drug Use: none Exam/Review of Systems Exam Vitals Vital Signs Date Temp Pulse Resp B/P (MAP) Pulse Ox O2 O2 Flow FiO2 Time Delivery Rate 02/22/19 98.2 72 19 100/61 99 09:31 (74) 02/22/19 Nasal 2.0 08:11 Cannula Results Result Diagram: 02/22/19 0226 02/22/19 0226 Results 24hrs Laboratory Tests Test 02/22/19 02:26 02/22/19 04:26 02/22/19 06:59 02/22/19 09:23 White Blood Count 26.2 #H Red Blood Count 3.21 L Hemoglobin 9.3 L Hematocrit 30.4 L Mean Corpuscular 94.7 Volume Mean Corpuscular 29.0 Hemoglobin Mean Corpuscular 30.6 L Hemoglobin Concent Red Cell 16.4 H Distribution Width Platelet Count 309 # Mean Platelet Volume 10.8 H Immature 3.300 H Granulocytes % Neutrophils % Segmented 78 H Neutrophils % (Manual) Band Neutrophils % 3 (Manual) Lymphocytes % Lymphocytes % 10 L (Manual) Monocytes % Monocytes % (Manual) 6 Eosinophils % Basophils % Basophils % (Manual) 1 Myelocytes % 2 H (Manual) Nucleated Red Blood 0.0 Cells % Immature 0.870 H Granulocytes # Neutrophils # Neutrophils # 20.6 H (Manual) Band Neutrophils # 0.7 H Lymphocytes (Manual) 2.6 Lymphocytes # Monocytes # Monocytes # (Manual) 1.5 H Eosinophils # Basophils # Basophils # (Manual) 0.2 H Myelocytes # 0.5 H Nucleated Red Blood Cells # Platelet Estimate NORMAL Platelet Morphology @See below Comment Polychromasia 1+ Poikilocytosis 1+ Anisocytosis 1+ Prothrombin Time 13.3 Prothrombin Time 1.0 Ratio INR International 1.00 Normalized Ratio Activated 25.8 Partial Thromboplast Time Sodium Level 140 Potassium Level 4.4 Chloride Level 92 L Carbon Dioxide Level 33 H Anion Gap 15 H Blood Urea Nitrogen 55 H Creatinine 4.33 H Est Glomerular Filtrat Rate mL/min Glucose Level 226 H Calcium Level 8.7 Total Bilirubin 0.2 Direct Bilirubin 0.00 Indirect Bilirubin 0.2 Aspartate Amino 34 Transf (AST/SGOT) Alanine 17 Aminotransferase (AL T/SGPT) Alkaline Phosphatase 117 Troponin I 0.124 *H Total Protein 7.6 Albumin 3.4 Globulin 4.20 H Albumin/Globulin 0.80 Ratio POC Venous Lactate 2.8 *H Lactic Acid Level 2.0 2.6 *H Medications Medication Current Medications Ondansetron HCl (Zofran Inj) 4 mg ER BRIDGE PRN IV NAUSEA/VOMITING Last administered on 02/22/19at 07:15; Admin Dose 4 MG; Start 02/22/19 at 06:30; Stop 02/23/19 at 06:29 Acetaminophen (Tylenol Tab) 650 mg ER BRIDGE PRN PO .MILD PAIN 1-3 OR TEMP; Start 02/22/19 at 06:30; Stop 02/23/19 at 06:29 Metronidazole 100 ml @ 100 mls/hr BID IVPB Last administered on 02/22/19at 11:52; Admin Dose 100 MLS/HR; Start 02/22/19 at 09:00 Dextrose/Sodium Chloride 1,000 ml @ 70 mls/hr [id number] IV Last administered on 02/22/19at 11:52; Admin Dose 70 MLS/HR; Start 02/22/19 at 11:30 Ondansetron HCl (Zofran Inj) 4 mg Q6H PRN IV NAUSEA AND/OR VOMITING; Start 02/22/19 at 11:30 Morphine Sulfate (morphine) 2 mg Q2H PRN IV PAIN LEVEL 6-10; Start 02/22/19 at 15:30 YASIR LOGAN MD February 22, 2019 15:16
[2019-02-22 15:36] VITALS: BP 128/58; PULSE 68; RESP 18
[2019-02-22 15:41] VITALS: Ht 160 cm; Wt 56.0 kg
--- NOTE | 2019-02-22 15:52 | CONS ---
DATE OF ADMISSION: 02/22/2019 DATE OF CONSULTATION: 02/22/2019 TYPE OF CONSULTATION: Cardiology. REASON FOR CONSULTATION: Congestive heart failure, history of TAVR. REQUESTING PHYSICIAN: Rocio Burgess MD HISTORY OF PRESENT ILLNESS: Ms. Viera is an 83-year-old female known to myself from prior hospital admission with a history of congestive heart failure, diastolic, acute on chronic by echo most recently done on 02/13/2019, transcatheter aortic valve replacement, end-stage renal disease on hemodialysis, hypertension, diabetes mellitus, GI bleed with prior findings of varices, minimally positive troponins in recent past, who was discharged to outpatient followup and now represents with possible GI bleed and abdominal pain. Upon arrival, temperature of 96.9, blood pressure 105/43, respiratory rate 14, pulse 92, saturating 99%. The patient's labs showed white blood cell count of 26.2, hemoglobin 9.3, platelet count of 309, sodium 140, potassium 4.4, creatinine 4.33, BUN of 55. Troponin is minimally positive at 0.124. Venous lactate of 2.8. INR of 1. The patient underwent a chest x-ray revealing bibasilar atelectasis and/or infiltrates and an abdominal pelvic CT that revealed small bowel distention without transition point, significant distention of colon with air and liquid stool with distal descending sigmoid junction, large complex mixed attenuation area adjacent could represent a contained perforation and perforated colonic neoplasm must be considered, although contained perforation or diverticulitis is also possible, demonstrates stomach distended with air fluid. Gallbladder is slightly distended. The patient's electrocardiogram revealed normal sinus rhythm, rate of 93 with normal axis, borderline increased QT correct interval, nonspecific ST-T abnormalities. The patient was consulted by surgery with recommendations for emergent surgery and it was decided that the patient may be placed on comfort measures. This is still undecided and thus cardiology consultation is requested by primary physician given positive troponins and history of heart failure and TAVR. The patient has subsequently been admitted to the floor where she has significant rapid ventricular rate, significant pain in her abdomen, very tender acute abdomen. PAST MEDICAL HISTORY: As above in HPI. MEDICATIONS CURRENTLY IN HOSPITAL: 1. D5 IV fluids. 2. Zofran. 3. Tylenol. 4. Morphine. ALLERGIES: VANCOMYCIN. SOCIAL HISTORY: No current tobacco, EtOH or illicit drug use. FAMILY HISTORY: No history of sudden cardiac or early CAD. REVIEW OF SYSTEMS: CONSTITUTIONAL: No current fevers. PULMONARY: Shortness of breath. CARDIOVASCULAR: No current chest pain. GASTROINTESTINAL: Perforated viscus, abdominal pain. GENITOURINARY: Renal failure. PSYCHIATRIC: No documented psychiatric history. NEUROLOGIC: History of dementia. HEMATOLOGIC: Anemia. PHYSICAL EXAMINATION: VITAL SIGNS: Temperature 98.2, blood pressure most recently 100/61, pulse 72, respiratory rate 19, satting 99%. GENERAL: The patient is alert, awake, complaining of abdominal pain, rapid breathing. NECK: JVP is approximately 9 cm of water. CHEST: Fair air movement throughout with mildly decreased breath sounds at bases bilaterally. HEART: Regular rate and rhythm. Normal S1, S2, I/ systolic murmur, nondisplaced PMI. ABDOMEN: Diffuse tender to palpation, distended, hypoactive bowel sounds. EXTREMITIES: Trace to 1+ nonpitting edema, 1+ pulses bilaterally, posterior tibial. LABORATORIES: As above in HPI with a repeat lactate level come back at 2.6 mildly elevated than 2.0. ELECTROCARDIOGRAM: As above in HPI. No further electrocardiograms for my review at this time. IMAGING STUDIES: As above in HPI. No further imaging studies for my review at this time. IMPRESSION: 1. Positive troponin in the setting of renal failure, assess significance, likely a type 2 demand infarct in the setting of perforated viscus, ongoing renal failure with possible ensuing infection. 2. Abnormal electrocardiogram, assess for true acute coronary syndrome. 3. History of congestive heart failure, diastolic, acute on chronic by most recent echo approximately 9 days prior. 4. End-stage renal disease on hemodialysis. 5. History of transcatheter aortic valve replacement. 6. Anemia. 7. Leukocytosis. 8. Dementia. 9. Dyslipidemia. 10. Obstructive sleep apnea. 11. Diabetes mellitus. RECOMMENDATIONS: 1. At this time as the family is still deciding upon true comfort measures or not, we would continue to trend the patient's cardiac enzymes, assess for any significant ongoing cardiac damage. 2. We would check serial EKGs to assess for any significant ongoing changes. 3. The patient is to have hemodialysis for volume removal and possible improvement in respiratory status. 4. Given perforated viscus, we will ultimately hold on any medications at this time and given marginal blood pressure, we will hold on beta juhi at this time. 5. Pain control. 6. Ongoing family discussion pertaining to the patient's direction of care. Thank you for allowing me to take part in the care of this patient. I will continue to follow her very closely with you with further recommendations to be made as the patient progresses through her inpatient hospital clinical course. Dictated By: TASHA ANGUIANO/CORAZON Conf#: [id number] DID#: [id number] CC: ROCIO BURGESS MD; YASIR LOGAN MD;*EndCC* MTDD
--- NOTE | 2019-02-22 17:44 | CONS ---
Assessment/Plan Assessment/Plan Hospital Course (Demo Recall) 1. Sepsis 2. perforated colon 3. Dementia 4. Family considering hospice R:' zosyn for now blood cxs family decision Consultation Date/Type/Reason Date of Consultation: February 22, 2019 Type of Consult id Reason for Consultation colonic perf Requesting Provider: ROCIO COHEN MD Date/Time of Note DATE: 02/22/19 TIME: 17:39 cct 2h Hx of Present Illness 83 yo female with a pmh of dementia, ckd, htn, cva, urinary incontinence, admitted through er with perforated colon and sepsis. Family has indicated they prefer not to have surgery and are considering hospice. Past Medical History Medical History: angina, colitis, congestive heart failure, coronary artery disease, diabetes, diverticulitis, GERD, GI bleed, high cholesterol, hypertension, irritable bowel syndrome, other (Renal failure requiring dialysis) Home Meds Discontinued Reported Medications Epoetin Eduardo (Epogen) 10,000 Units/Ml Soln, 20441 UNITS SC TUE,THUR,SAT, VIAL 02/22/19 Acetaminophen* (Acetaminophen*) 500 MG Extra Strength Tablet, 500 MG PO Q8 PRN for MILD PAIN LEVEL 1-3, TAB 02/22/19 Glipizide* (Glipizide*) 5 Mg Tablet, 5 MG PO AC BREAKFAST, TAB 02/12/19 Quetiapine Fumarate* (Seroquel* XR) 50 Mg Tab.sr.24h, 50 MG PO DAILY, #30 TAB 02/12/19 Mirtazapine* (Mirtazapine*) 30 Mg Tablet, 30 MG PO HS, TAB 02/12/19 Tramadol Hcl* (Ultram*) 50 Mg Tablet, 50 MG PO DAILY PRN for PAIN, TAB 02/12/19 Levothyroxine Sodium* (Levothyroxine Sodium*) 112 Mcg Tablet, 112 MCG PO BEFORE BREAKFAST, #30 TAB 02/12/19 Simvastatin* (Zocor*) 20 Mg Tablet, 20 MG PO QHS, #30 TAB 02/12/19 Solifenacin* (Vesicare*) 5 Mg Tablet, 5 MG PO DAILY, TAB 02/12/19 Insulin Aspart* (Novolog Insulin Pen*) 100 Unit/Ml Soln, 6 UNIT SC WITH MEALS, EA 02/12/19 Calcium Carbonate ([id number]) 500 Mg Tablet, 500 MG PO DAILY, TAB 02/12/19 Ergocalciferol (Vitamin D2) (VITAMIN D2) 50,000 Unit Capsule, 47278 UNIT PO Q7D, CAP 02/12/19 Meclizine Hcl* (Meclizine Hcl*) 25 Mg Tablet, 25 MG PO Q8H PRN for DIZZINESS, TAB 02/12/19 Vxuqbdbrtx-Riovytwev-YUVS (Exforge HCT) 10-320-25 Mg Tab, 1 EACH PO DAILY, TAB 02/12/19 Aspirin* (Aspirin* EC) 81 Mg Tablet.dr, 81 MG PO DAILY, TAB 02/12/19 Discontinued Scripts [Acetaminophen Tab] 500 MG TAB No Conflict Check, 500 MG PO Q8H PRN for MILD PAIN(1-3)OR ELEVATED TEMP for 30 Days, #90 TAB Prov:ROCIO COHEN MD 02/18/19 Metoprolol Tartrate* (Lopressor*) 25 Mg Tab, 25 MG PO BID for 30 Days, #60 TAB Prov:ROICO COHEN MD 02/18/19 [Epoetin Eduardo-Epbx (Non-Esrd)] 94412 UNIT/1 ML SOLUTION No Conflict Check, 18025 UNIT SC TuThSa@1700 for 14 Days, #1 Prov:ROCIO COHEN MD 02/18/19 Medications Current Medications Ondansetron HCl (Zofran Inj) 4 mg ER BRIDGE PRN IV NAUSEA/VOMITING Last administered on 02/22/19at 07:15; Admin Dose 4 MG; Start 02/22/19 at 06:30; Stop 02/23/19 at 06:29 Acetaminophen (Tylenol Tab) 650 mg ER BRIDGE PRN PO .MILD PAIN 1-3 OR TEMP; Start 02/22/19 at 06:30; Stop 02/23/19 at 06:29 Metronidazole 100 ml @ 100 mls/hr BID IVPB Last administered on 02/22/19at 11:52; Admin Dose 100 MLS/HR; Start 02/22/19 at 09:00 Dextrose/Sodium Chloride 1,000 ml @ 70 mls/hr [id number] IV Last administered on 02/22/19at 11:52; Admin Dose 70 MLS/HR; Start 02/22/19 at 11:30 Ondansetron HCl (Zofran Inj) 4 mg Q6H PRN IV NAUSEA AND/OR VOMITING; Start 02/22/19 at 11:30 Morphine Sulfate (morphine) 2 mg Q2H PRN IV PAIN LEVEL 6-10; Start 02/22/19 at 15:30 Piperacillin Sod/ Tazobactam Sod 50 ml @ 100 mls/hr Q8 IVPB ; Start 02/22/19 at 18:00; Status UNV Allergies: Coded Allergies: vancomycin (Verified Allergy, Unknown, Rash all over body, 02/22/19) Past Surgical History Past Surgical Hx: no surgical history, other (TAVR.) Social History Alcohol Use: none Smoking Status: Never smoker Drug Use: none Exam/Review of Systems Exam Vitals Vital Signs Date Temp Pulse Resp B/P (MAP) Pulse Ox O2 O2 Flow FiO2 Time Delivery Rate 02/22/19 98.0 68 18 128/58 100 Nasal 15:36 (81) Cannula 02/22/19 1.0 15:33 Constitutional: alert, oriented, well developed Psych: no complaints, nl mood/affect Head: normocephalic, atraumatic Eyes: EOMI Respiratory: clear to auscultation Gastrointestinal: tender, other (decreased bowel sounds) Neurological: [employer] SALES REPRESENTATIVES II-XII intact Results Result Diagram: 02/22/1922502/22/19225 Results 24hrs Laboratory Tests Test 02/22/19 02:26 02/22/19 04:26 02/22/19 06:59 02/22/19 09:23 White Blood Count 26.2 #H Red Blood Count 3.21 L Hemoglobin 9.3 L Hematocrit 30.4 L Mean Corpuscular 94.7 Volume Mean Corpuscular 29.0 Hemoglobin Mean Corpuscular 30.6 L Hemoglobin Concent Red Cell 16.4 H Distribution Width Platelet Count 309 # Mean Platelet Volume 10.8 H Immature 3.300 H Granulocytes % Neutrophils % Segmented 78 H Neutrophils % (Manual) Band Neutrophils % 3 (Manual) Lymphocytes % Lymphocytes % 10 L (Manual) Monocytes % Monocytes % (Manual) 6 Eosinophils % Basophils % Basophils % (Manual) 1 Myelocytes % 2 H (Manual) Nucleated Red Blood 0.0 Cells % Immature 0.870 H Granulocytes # Neutrophils # Neutrophils # 20.6 H (Manual) Band Neutrophils # 0.7 H Lymphocytes (Manual) 2.6 Lymphocytes # Monocytes # Monocytes # (Manual) 1.5 H Eosinophils # Basophils # Basophils # (Manual) 0.2 H Myelocytes # 0.5 H Nucleated Red Blood Cells # Platelet Estimate NORMAL Platelet Morphology @See below Comment Polychromasia 1+ Poikilocytosis 1+ Anisocytosis 1+ Prothrombin Time 13.3 Prothrombin Time 1.0 Ratio INR International 1.00 Normalized Ratio Activated 25.8 Partial Thromboplast Time Sodium Level 140 Potassium Level 4.4 Chloride Level 92 L Carbon Dioxide Level 33 H Anion Gap 15 H Blood Urea Nitrogen 55 H Creatinine 4.33 H Est Glomerular Filtrat Rate mL/min Glucose Level 226 H Calcium Level 8.7 Total Bilirubin 0.2 Direct Bilirubin 0.00 Indirect Bilirubin 0.2 Aspartate Amino 34 Transf (AST/SGOT) Alanine 17 Aminotransferase (AL T/SGPT) Alkaline Phosphatase 117 Troponin I 0.124 *H Total Protein 7.6 Albumin 3.4 Globulin 4.20 H Albumin/Globulin 0.80 Ratio POC Venous Lactate 2.8 *H Lactic Acid Level 2.0 2.6 *H Medications Medication Current Medications Ondansetron HCl (Zofran Inj) 4 mg ER BRIDGE PRN IV NAUSEA/VOMITING Last administered on 02/22/19at 07:15; Admin Dose 4 MG; Start 02/22/19 at 06:30; Stop 02/23/19 at 06:29 Acetaminophen (Tylenol Tab) 650 mg ER BRIDGE PRN PO .MILD PAIN 1-3 OR TEMP; Start 02/22/19 at 06:30; Stop 02/23/19 at 06:29 Metronidazole 100 ml @ 100 mls/hr BID IVPB Last administered on 02/22/19at 11:52; Admin Dose 100 MLS/HR; Start 02/22/19 at 09:00 Dextrose/Sodium Chloride 1,000 ml @ 70 mls/hr [id number] IV Last administered on 02/22/19at 11:52; Admin Dose 70 MLS/HR; Start 02/22/19 at 11:30 Ondansetron HCl (Zofran Inj) 4 mg Q6H PRN IV NAUSEA AND/OR VOMITING; Start 02/22/19 at 11:30 Morphine Sulfate (morphine) 2 mg Q2H PRN IV PAIN LEVEL 6-10; Start 02/22/19 at 15:30 Piperacillin Sod/ Tazobactam Sod 50 ml @ 100 mls/hr Q8 IVPB ; Start 02/22/19 at 18:00; Status UNV YASIR LOGAN MD February 22, 2019 17:44
[2019-02-22] MEDS ORDERED: PIPER-TAZO 2.25 GM (PMX) 50 ML IVPB SCH (18:30)
[2019-02-22 20:30] VITALS: BP 106/53; PULSE 97; RESP 17
[2019-02-23] VITALS (8 sets, daily range): PULSE 99–106; RESP 20–52
[2019-02-23] MEDS: DEXTROSE 5%-0.9% NACL 1,000 ML IV SCH ×2 (01:48→16:06)
[2019-02-23] MEDS: morphine (DRIP) 100 MG/100 ML 100 ML IV SCH ×2 (01:52→18:50)
--- NOTE | 2019-02-23 07:26 | CONS ---
Assessment/Plan Assessment/Plan Assessment/Plan (Daily) Bowel perforation Pain Dementia S/P Cva Malnutrition Renal insufficiency Add ativan to regimen I will introduce myself to family members today Thank You Consultation Date/Type/Reason Date/Time of Note DATE: 02/23/19 TIME: 07:15 Hx of Present Illness Dictation is down again 83 yo female preented to [facility] with new onset of abdominal pain.. W/U C/W perf bowel Sepis syndrome Renal insuficiency Dementia Fluid and electrolyte deficiency Malnutrition Dehydration S/P CVA Pain secondary to peritonitis. Family have decided on conservative care and patient begun on comfort medications. There are no family member at the bedside at this time. Patient is a non historian and appears to be in moderate distress at this time. Pt cannot participate Past Medical History Medical History: angina, colitis, congestive heart failure, coronary artery disease, diabetes, diverticulitis, GERD, GI bleed, high cholesterol, hypertension, irritable bowel syndrome, other (Renal failure requiring dialysis) Home Meds Discontinued Reported Medications Epoetin Eduardo (Epogen) 10,000 Units/Ml Soln, 35353 UNITS SC TUE,THUR,SAT, VIAL 02/22/19 Acetaminophen* (Acetaminophen*) 500 MG Extra Strength Tablet, 500 MG PO Q8 PRN for MILD PAIN LEVEL 1-3, TAB 02/22/19 Glipizide* (Glipizide*) 5 Mg Tablet, 5 MG PO AC BREAKFAST, TAB 02/12/19 Quetiapine Fumarate* (Seroquel* XR) 50 Mg Tab.sr.24h, 50 MG PO DAILY, #30 TAB 02/12/19 Mirtazapine* (Mirtazapine*) 30 Mg Tablet, 30 MG PO HS, TAB 02/12/19 Tramadol Hcl* (Ultram*) 50 Mg Tablet, 50 MG PO DAILY PRN for PAIN, TAB 02/12/19 Levothyroxine Sodium* (Levothyroxine Sodium*) 112 Mcg Tablet, 112 MCG PO BEFORE BREAKFAST, #30 TAB 02/12/19 Simvastatin* (Zocor*) 20 Mg Tablet, 20 MG PO QHS, #30 TAB 02/12/19 Solifenacin* (Vesicare*) 5 Mg Tablet, 5 MG PO DAILY, TAB 02/12/19 Insulin Aspart* (Novolog Insulin Pen*) 100 Unit/Ml Soln, 6 UNIT SC WITH MEALS, EA 02/12/19 Calcium Carbonate ([id number]) 500 Mg Tablet, 500 MG PO DAILY, TAB 02/12/19 Ergocalciferol (Vitamin D2) (VITAMIN D2) 50,000 Unit Capsule, 44770 UNIT PO Q7D, CAP 02/12/19 Meclizine Hcl* (Meclizine Hcl*) 25 Mg Tablet, 25 MG PO Q8H PRN for DIZZINESS, TA B 02/12/19 Kxojekvblt-Jhtknrebb-KTRQ (Exforge HCT) 10-320-25 Mg Tab, 1 EACH PO DAILY, TAB 02/12/19 Aspirin* (Aspirin* EC) 81 Mg Tablet.dr, 81 MG PO DAILY, TAB 02/12/19 Discontinued Scripts [Acetaminophen Tab] 500 MG TAB No Conflict Check, 500 MG PO Q8H PRN for MILD PAIN(1-3)OR ELEVATED TEMP for 30 Days, #90 TAB Prov:ROCIO COHEN MD 02/18/19 Metoprolol Tartrate* (Lopressor*) 25 Mg Tab, 25 MG PO BID for 30 Days, #60 TAB Prov:ROCIO COHEN MD 02/18/19 [Epoetin Eduardo-Epbx (Non-Esrd)] 79919 UNIT/1 ML SOLUTION No Conflict Check, 40680 UNIT SC TuThSa@1700 for 14 Days, #1 Prov:ROCIO COHEN MD 02/18/19 Medications Current Medications Dextrose/Sodium Chloride 1,000 ml @ 70 mls/hr [id number] IV Last administered on 02/22/19at 11:52; Admin Dose 70 MLS/HR; Start 02/22/19 at 11:30 Morphine Sulfate/ Sodium Chloride 100 ml @ 1 mls/hr TITRATE IV Last administered on 02/23/19at 01:52; Admin Dose 1 MLS/HR; Start 02/23/19 at 00:00 Allergies: Coded Allergies: vancomycin (Verified Allergy, Unknown, Rash all over body, 02/22/19) Past Surgical History Past Surgical Hx: no surgical history, other (TAVR.) Social History Alcohol Use: none Smoking Status: Never smoker Drug Use: none Exam/Review of Systems Exam Vitals Vital Signs Date Temp Pulse Resp B/P (MAP) Pulse Ox O2 O2 Flow FiO2 Time Delivery Rate 5/27/19 Nasal 2.0 20:30 Cannula 02/22/19 99.6 97 17 106/53 97 20:30 (70) Intake and Output 02/22/19 02/22/19 02/23/19 1515:00 23:00 07:00 IntakeIntake Total 100 ml 440 ml 635 ml BalanceBalance 100 ml 440 ml 635 ml Constitutional: distress, frail Psych: anxiety Eyes: nl conjunctiva, EOMI, nl lids, nl sclera, PERRL; No icteric, No fundi, disc, No other ENMT: nl external ears & nose, nl lips & teeth, nl nasal mucosa & septum; No mucosa pink and moist, No intubated, No tympanic membranes, No other Neck: No supple, No non-tender, No jvd, No bruits, No masses, No thyromegaly, No nuchal rigidity, No other Respiratory: clear to auscultation, normal air movement; No congested cough, No crackles/rales, No diminished breath sounds, No int ercostal retraction, No labored breathing, No respirations, No tactile fremitus, No wheezing, No other Cardiovascular: regular rate and rhythm, nl pulses; No bruits, No diastolic murmur, No edema, No gallop, No irregular rhythm, No jugular venous distention (JVD), No murmurs/extra sounds, No rub, No systolic murmur, No S3, No S4, No other Gastrointestinal: distended, tender Neurological: confused Results Result Diagram: 02/22/196 02/22/19 0226 Results 24hrs Laboratory Tests Test 02/22/19 09:23 02/22/19 17:32 Lactic Acid Level 2.6 *H Creatine Kinase 478 H Creatine Kinase Index 1.4 Creatinine Kinase MB (Mass) 6.62 H Troponin I 0.105 Medications Medication Current Medications Dextrose/Sodium Chloride 1,000 ml @ 70 mls/hr [id number] IV Last administered on 02/22/19at 11:52; Admin Dose 70 MLS/HR; Start 02/22/19 at 11:30 Morphine Sulfate/ Sodium Chloride 100 ml @ 1 mls/hr TITRATE IV Last administered on 02/23/19at 01:52; Admin Dose 1 MLS/HR; Start 02/23/19 at 00:00 VALERIA VILLALOBOS February 23, 2019 07:25
[2019-02-23] MEDS ORDERED: LORAZEPAM 2 MG INJ IV PRN ×2 (07:30→19:30)
--- NOTE | 2019-02-23 07:37 | PN ---
Date/Time of Note Date/Time of Note DATE: 02/23/19 TIME: 07:33 Assessment/Plan VTE Prophylaxis Risk score (from Ns)>0 risk: 4 SCD applied (from Ns): No SCD contraindicated: other (on) Pharmacological prophylaxis: other (no) Lines/Catheters IV Catheter Type (from [facility]): [place] [employer] line still needed: No Urinary Cath still in place: No Reason Cath still needed: urinary retention Assessment/Plan Assessment/Plan 1.sepsis. Most probably due to perforation of left side of the colon according to the CT report and the junction of the descending colon and sigmoid with peritonitis. Possible tumor possible perforated diverticulum or another cause of obstruction. Family decided not to perform a surgery which is the only possible hope at this stage of evaluation and management. Family's final decision is- To Start palliative care hospice. 2. Altered level of consciousness-multifactorial but the main reason now sepsis and hypotension bleeding. 3.Upper gi BLEEDING-esophageal varices and gastric bleeding; gastroscopy done about a week ago by Dr. Hurley. 4.CKD on HD. called. 5.HTN with chf-better controlled 6.Anemia of chronic disease 7.Hx of cva 8.Postcva and senile dementia 9.MD 10.Urinary incontinence 11.Dyslipidemia 12.HX of falls 13.Severe muscular waisting 14.PAD 15.right gluteal and lbp 16.L/S scoliosis 17.OSIEL. 18. Cachexia 19. Major depression 20.S/P TAVR 21.DM type 2 22. Terminally ill due to poor prognosis following a visual patient and the family only comfort measures will be provided Result Diagram: Result Diagram: 02/22/1922502/22/19 0226 Results 24hrs Laboratory Tests Test 02/22/19 09:23 02/22/19 17:32 Lactic Acid Level 2.6 *H Creatine Kinase 478 H Creatine Kinase Index 1.4 Creatinine Kinase MB (Mass) 6.62 H Troponin I 0.105 Subjective 24 Hr Interval Summary Free Text/Dictation Lethargic. Unobtainable. Subjective hx not possible: other (Lethargic unobtainable.) Exam/Review of Systems Exam Vitals Vital Signs Date Temp Pulse Resp B/P (MAP) Pulse Ox O2 O2 Flow FiO2 Time Delivery Rate 02/22/19 Nasal 2.0 20:30 Cannula 02/22/19 99.6 97 17 106/53 97 20:30 (70) Intake and Output 02/22/19 02/22/19 02/23/19 1515:00 23:00 07:00 IntakeIntake Total 100 ml 440 ml 635 ml BalanceBalance 100 ml 440 ml 635 ml Constitutional: other (Lethargic unable to respond under the morphine drip.); No alert, No oriented, No well developed, No non-verbal, No distress, No frail, No obese Psych: No no complaints, No nl mood/affect, No anxiety, No confusion, No depression, No suicidal, No other Head: No normocephalic, No atraumatic, No lacerations, No hematomas, No other Eyes: PERRL (Narrow not reacting.); No nl conjunctiva, No EOMI, No nl lids, No nl sclera, No icteric, No fundi, disc, No other ENMT: No nl external ears & nose, No nl lips & teeth, No nl nasal mucosa & septum, No mucosa pink and moist, No intubated, No tympanic membranes, No other Neck: nuchal rigidity; No supple, No non-tender, No jvd, No bruits, No masses, No thyromegaly, No other Respiratory: clear to auscultation, diminished breath sounds; No normal air movement, No congested cough, No crackles/rales, No intercostal retraction, No labored breathing, No respirations, No tactile fremitus, No wheezing, No other Cardiovascular: regular rate and rhythm; No nl pulses, No bruits, No diastolic murmur, No edema, No gallop, No irregular rhythm, No jugular venous distention (JVD), No murmurs/extra sounds, No rub, No systolic murmur, No S3, No S4, No other Gastrointestinal: soft; No nl liver, spleen, No non-tender, No ascites, No bowel sounds, No distended, No firm, No hepatomegaly, No mass, No rebound or guarding, No splenomegaly, No surgical scars, No tender, No other Genitourinary - Female: nl adnexae, nl external genitalia; No CMT, No CVA tenderness, No uterus, No other Extremities: normal pulses; No calf tenderness, No cyanosis, No clubbing, No edema, No pitting pedal edema, No palpable cord, No tenderness, No other Neurological: lethargic; No WEIGHT CHECKER II-XII intact, No nl mental status, No nl speech, No nl strength, No confused, No DTR's symmetric, No focal weakness, No numbness, No reflexes, No unresponsive, No other Skin: nl turgor (Decreased.); No rash or lesions, No diaphoresis, No ecchymosis, No laceration, No puncture, No other Lymph: No nl lymph nodes, No enlarged, No nontender, No other Results Results 24hrs Laboratory Tests Test 02/22/19 09:23 02/22/19 17:32 Lactic Acid Level 2.6 *H Creatine Kinase 478 H Creatine Kinase Index 1.4 Creatinine Kinase MB (Mass) 6.62 H Troponin I 0.105 Medications Medication Current Medications Dextrose/Sodium Chloride 1,000 ml @ 70 mls/hr [id number] IV Last administered on 02/22/19at 11:52; Admin Dose 70 MLS/HR; Start 02/22/19 at 11:30 Morphine Sulfate/ Sodium Chloride 100 ml @ 1 mls/hr TITRATE IV Last administered on 02/23/19at 01:52; Admin Dose 1 MLS/HR; Start 02/23/19 at 00:00 Lorazepam (Ativan) 0.5 mg Q4H PRN IV AGITATION/ANXIETY; Start 02/23/19 at 07:30 ROCIO COHEN MD February 23, 2019 07:36
--- NOTE | 2019-02-23 09:16 | CONS ---
Consult Date/Type/Reason Admit Date/Time February 22, 2019 at 06:14 Initial Consult Date 02/22/19 Requesting Provider: ROCIO COHEN MD Date/Time of Note DATE: 02/23/19 TIME: 09:14 Subjective NO acute events - pt agitated - back opain noted - no reina CP - family at bedside - aware of care. ROS: No fever, no chills, no nausea, no vomiting, no diarrhea/constipation - per daughter Objective Vitals Vital Signs Date Temp Pulse Resp B/P (MAP) Pulse Ox O2 O2 Flow FiO2 Time Delivery Rate 02/22/19 Nasal 2.0 20:30 Cannula 02/22/19 99.6 97 17 106/53 97 20:30 (70) Intake and Output 02/22/19 02/22/19 02/23/19 1515:00 23:00 07:00 IntakeIntake Total 100 ml 440 ml 635 ml BalanceBalance 100 ml 440 ml 635 ml Exam General: WN/WD/NAD, AOx 1-2 HEENT: Unicetric/atraumatic/EOMI (does not follow commands) NECK: JVD elevated, no thyromegaly Lymph: no lymphadenopathy HEART: regular with no S3, II/ systolic murmur at apex LUNGS: Coarse sounds ABD: soft, NT, ND, +BS : Intact Neuro: non focal SKIN: chronic changes, L UE HD access EXT: trace edema Results/Medications Result Diagram: 02/22/1922502/22/19225 Results 24 hrs Laboratory Tests Test 02/22/19 09:23 02/22/19 17:32 Lactic Acid Level 2.6 *H Creatine Kinase 478 H Creatine Kinase Index 1.4 Creatinine Kinase MB (Mass) 6.62 H Troponin I 0.105 Home Meds Discontinued Reported Medications Epoetin Eduardo (Epogen) 10,000 Units/Ml Soln, 05945 UNITS SC TUE,THUR,SAT, VIAL 02/22/19 Acetaminophen* (Acetaminophen*) 500 MG Extra Strength Tablet, 500 MG PO Q8 PRN for MILD PAIN LEVEL 1-3, TAB 02/22/19 Glipizide* (Glipizide*) 5 Mg Tablet, 5 MG PO AC BREAKFAST, TAB 02/12/19 Quetiapine Fumarate* (Seroquel* XR) 50 Mg Tab.sr.24h, 50 MG PO DAILY, #30 TAB 02/12/19 Mirtazapine* (Mirtazapine*) 30 Mg Tablet, 30 MG PO HS, TAB 02/12/19 Tramadol Hcl* (Ultram*) 50 Mg Tablet, 50 MG PO DAILY PRN for PAIN, TAB 02/12/19 Levothyroxine Sodium* (Levothyroxine Sodium*) 112 Mcg Tablet, 112 MCG PO BEFORE BREAKFAST, #30 TAB 02/12/19 Simvastatin* (Zocor*) 20 Mg Tablet, 20 MG PO QHS, #30 TAB 02/12/19 Solifenacin* (Vesicare*) 5 Mg Tablet, 5 MG PO DAILY, TAB 02/12/19 Insulin Aspart* (Novolog Insulin Pen*) 100 Unit/Ml Soln, 6 UNIT SC WITH MEALS, EA 02/12/19 Calcium Carbonate (Shas-Bjk-708) 500 Mg Tablet, 500 MG PO DAILY, TAB 02/12/19 Ergocalciferol (Vitamin D2) (VITAMIN D2) 50,000 Unit Capsule, 15745 UNIT PO Q7D, CAP 02/12/19 Meclizine Hcl* (Meclizine Hcl*) 25 Mg Tablet, 25 MG PO Q8H PRN for DIZZINESS, TAB 02/12/19 [id number]-Unjwdtvsc-DQSG (Exforge HCT) 10-320-25 Mg Tab, 1 EACH PO DAILY, TAB 02/12/19 Aspirin* (Aspirin* EC) 81 Mg Tablet.dr, 81 MG PO DAILY, TAB 02/12/19 Discontinued Scripts [Acetaminophen Tab] 500 MG TAB No Conflict Check, 500 MG PO Q8H PRN for MILD PAIN(1-3)OR ELEVATED TEMP for 30 Days, #90 TAB Prov:ROCIO COHEN MD 02/18/19 Metoprolol Tartrate* (Lopressor*) 25 Mg Tab, 25 MG PO BID for 30 Days, #60 TAB Prov:ROCIO COHEN MD 02/18/19 [Epoetin Eduardo-Epbx (Non-Esrd)] 28380 UNIT/1 ML SOLUTION No Conflict Check, 24808 UNIT SC TuThSa@1700 for 14 Days, #1 Prov:ROCIO COHEN MD 02/18/19 Medications Current Medications Dextrose/Sodium Chloride 1,000 ml @ 70 mls/hr [id number] IV Last administered on 02/22/19at 11:52; Admin Dose 70 MLS/HR; Start 02/22/19 at 11:30 Morphine Sulfate/ Sodium Chloride 100 ml @ 1 mls/hr TITRATE IV Last administered on 02/23/19at 01:52; Admin Dose 1 MLS/HR; Start 02/23/19 at 00:00 Lorazepam (Ativan) 0.5 mg Q4H PRN IV AGITATION/ANXIETY; Start 02/23/19 at 07:30 Assessment/Plan Hospital Course (Demo Recall) 1. Positive troponin in the setting of renal failure, assess significance, likely a type 2 demand infarct in the setting of perforated viscus, ongoing renal failure with possible ensuing infection - no CP - no intervention currently planned. 2. Abnormal electrocardiogram, assess for true acute coronary syndrome- on med Rx now. 3. History of congestive heart failure, diastolic, acute on chronic by most recent echo approximately 9 days prior. Remove fluid with HD. 4. End-stage renal disease on hemodialysis.Renal team follows. 5. History of transcatheter aortic valve replacement - satble by exam. 6. Anemia. 7. Leukocytosis - WBC 26K - on anti-Bx 8. Dementia. 9. Dyslipidemia. 10. Obstructive sleep apnea. 11. Diabetes mellitus- keep euglycemic ELISABETH DAILEY MD February 23, 2019 09:16
--- NOTE | 2019-02-23 09:30 | PN ---
DATE: 02/23/2019 SUBJECTIVE: The patient is currently on comfort measures on morphine drip. No other events noted. OBJECTIVE: VITAL SIGNS: Blood pressure is 106/53, respirations 17, pulse 97, temperature 99.6. HEENT: Head is normocephalic. NECK: Supple. HEART: Regular rate. LUNGS: Show diminished breath sounds at the base. ABDOMEN: Soft, nontender to palpation without rebound or guarding. EXTREMITIES: Negative for clubbing, cyanosis, no edema. DERMATOLOGIC: No rashes. MUSCULOSKELETAL: No joint effusion. NEUROLOGIC: No change in exam. MEDICATIONS: Reviewed. LABORATORY DATA: Reviewed. ASSESSMENT: 1. End-stage renal disease. 2. Anemia. 3. Mineral bone disorder. 4. Sepsis. 5. Perforated viscus. 6. Hypertension. 7. Encephalopathy. PLAN: The patient is currently on comfort measures and morphine drip. We will sign off. Dictated By: TRISTAN OKEEFE DO NR/NTS Conf#: [id number] DID#: [id number] CC: YASIR LOGAN MD; ROCIO COHEN MD;*EndCC*
--- NOTE | 2019-02-23 17:56 | CONS ---
Assessment/Plan Assessment/Plan Hospital Course (Demo Recall) - sepsis due to complicated intra-abdominal infection - perforated colon - dementia recommendation - Pt's on comfort measures and antibiotics were stopped. reviewed her EMR. Will sign off Consultation Date/Type/Reason Admit Date/Time February 22, 2019 at 06:14 Initial Consult Date 02/22/19 Type of Consult ID Requesting Provider: ROCIO COHEN MD Date/Time of Note DATE: 02/23/19 TIME: 17:55 24 HR Interval Summary Free Text/Dictation Pt was placed on comfort measures under inpatient hospice Subjective hx not possible: pt non-verbal Exam/Review of Systems Exam Vitals Vital Signs Date Temp Pulse Resp B/P (MAP) Pulse Ox O2 O2 Flow FiO2 Time Delivery Rate 02/23/19 20 94 Room Air 16:49 02/23/19 99 1.5 10:50 02/22/19 99.6 106/53 20:30 (70) Intake and Output 02/22/19 02/22/19 02/23/19 1515:00 23:00 07:00 IntakeIntake Total 100 ml 440 ml 635 ml BalanceBalance 100 ml 440 ml 635 ml Exam exam deferred Results Result Diagram: 02/22/19 0226 02/22/19 0226 Medications Medication Current Medications Dextrose/Sodium Chloride 1,000 ml @ 70 mls/hr [id number] IV Last administered on 02/22/19at 11:52; Admin Dose 70 MLS/HR; Start 02/22/19 at 11:30 Morphine Sulfate/ Sodium Chloride 100 ml @ 1 mls/hr TITRATE IV Last administered on 02/23/19at 01:52; Admin Dose 1 MLS/HR; Start 02/23/19 at 00:00 Lorazepam (Ativan) 1 mg Q4H PRN IV AGITATION/ANXIETY; Start 02/23/19 at 19:30 Scopolamine (Transderm-Scop) 1 patch Q72H TRANSDERM ; Start 02/23/19 at 18:00 Atropine Sulfate (Atropine Sulfate) 2 drop Q2H PRN SL PRN SECRETIONS; Start 02/23/19 at 18:00 Acetaminophen (Tylenol Supp) 650 mg Q4H PRN [place] MILD PAIN(1-3) OR TEMP>38C; Start 02/23/19 at 18:00 ELIZABET NAVA M.D. February 23, 2019 17:56
[2019-02-23] MEDS ORDERED: ATROPINE SULFATE 1% 5ML SL PRN (18:00)
[2019-02-23] MEDS ORDERED: ACETAMINOPHEN 650 MG SUPP PR PRN (18:00)
[2019-02-23] MEDS ORDERED: SCOPOLAMINE 1.5 MG PATCH TRANSDERM SCH (18:00)
--- NOTE | 2019-02-24 03:18 | HP ---
DATE OF ADMISSION: 02/22/2019 LEVEL OF CARE: [facility]. PRIMARY HOSPICE DIAGNOSES: Sepsis, most probably due to perforation of colon. COMORBID CONDITION: Hypertension, CKD, history of CVA, senile dementia, peripheral arterial disease, obstructive sleep apnea, diabetes. CHIEF COMPLAINT AND HISTORY OF PRESENT ILLNESS: History was obtained from medical record. The patie nt could not provide any useful history. The patient is an 83-year-old [place] female with history of dementia, CVA, diabetes, hypertension, CKD stage V on hemodialysis. The patient was brought into the hospital on 02/22/2019 from [facility] because of recurrent GI bleed and abdominal pain. The p raza was recently admitted at [facility] because of recent GI bleed and was seen by Dr. Hurley at that time. The patient's recent EGD had revealed esophageal varices and gastric ble eding. EGD was done by Dr. Hurley during recent admission. The patient is being followed by Dr. Frederic lau from end-stage renal disease. The patient was seen by Dr. Hernández from surgical standpoint. The patient was hypertensive with white count of 26,000. CT scan of the abdomen showed colon perforatio n at the junction of sigmoid and descending colon. This was either due to diverticulitis or neoplasm . Due to patient being frail and underlying dementia, decision was made not to perform surgery and p alliative consult with Dr. Alva was obtained. Meanwhile, the patient was also seen by Dr. Kruger 's group from infectious disease standpoint and the patient was started on broad spectrum IV antibiot ic. Family requested comfort care and subsequently requested hospice. Family did not want to procee d with further treatment including dialysis and therefore, the patient is being admitted under hospic e. The patient did not have any vomiting. No reported rectal bleed today. The patient had a low-gr ginny fever of 99.6 last night. No reported wheezing. The patient's oxygen saturation remains within acceptable range on 2 liters nasal cannula. The patient did not have any recent neurological deficit . REVIEW OF SYSTEMS: Limited because of patient's mental status. PAST MEDICAL HISTORY: As stated above. In addition, the patient also has history of coronary artery disease, dyslipidemia. ALLERGIES: VANCOMYCIN. PAST SURGICAL HISTORY: The patient is status post TAVR. FAMILY HISTORY: Negative. SOCIAL HISTORY: Exsmoker. PHYSICAL EXAMINATION: GENERAL: Revealed the patient to be lethargic. VITAL SIGNS: T-max of 99.6, pulse of 99, respirations 20, O2 saturation 94% on 1.5-liter nasal cannu la, blood pressure 106/53. HEENT: Atraumatic, normocephalic. Conjunctivae and lids are normal. Nose and ears are normal. No eye discharge or redness. NECK: No mass, no JVD. CHEST: Examination revealed diminished air entry at bases. CARDIOVASCULAR: S1, S2 normal. No murmur. ABDOMEN: Tender. EXTREMITIES: Trace edema. NEUROLOGIC: The patient is lethargic and no useful communication was possible. LABORATORY DATA: Sodium 140, potassium 4.4, BUN 55, creatinine 4.3. Lactic acid 2.6. WBC 26.2, hem oglobin 9.3, platelet 309. Blood culture is growing staph species. IMPRESSION: 1. Sepsis due to complicated infection due to perforated colon. 2. Dementia. 3. End-stage renal disease. 4. History of hypertension. PLAN: The patient will be admitted under hospice care and has already been started on morphine drip which was initially started at 1 mg an hour and was increased to 7 mg an hour. The patient was also started on scopolamine patch and atropine drops for secretion, IV Ativan 1 mg q.4 p.r.n. for terminal anxiety, Tylenol 650 q.4 p.r.n. for fever and mild pain. We will continue to optimize comfort care. Plan of care was discussed with [facility] nurse. We will continue to follow and optimize comfort care. Dictated By: ELINA JENKINS/NTS Conf#: [id number] DID#: [id number] CC: ROCIO COHEN MD; YASIR KRUGER MD;*EndCC*
--- NOTE | 2019-02-24 07:08 | DES ---
Date/Time of Note Date/Time of Note DATE: 02/24/19 TIME: 06:58 Discharge/ Summary Admission/Discharge Info Admit Date/Time February 22, 2019 at 06:14 Final Diagnosis 1.sepsis. Most probably due to perforation of left side of the colon according to the CT report and the junction of the descending colon and sigmoid with peritonitis. Possible tumor possible perforated diverticulum or another cause of obstruction. Family decided not to perform a surgery which is the only possible hope at this stage of evaluation and management. I had a conversation with the family too we will start with conservative treatment which is not the best choice at this moment but final decision will be after other family will be involved and a final decision will be made at that time. No surgery for now. Changed initially planned ICU admission to the floor. Palliative care started and hospice called. 2. Altered level of consciousness-multifactorial but the main reason now sepsis and hypotension bleeding. 3.Upper gi BLEEDING-esophageal varices and gastric bleeding; gastroscopy done about a week ago by Dr. Hurley. 4.CKD on HD. called.NO HD. 5.HTN with chf-better controlled 6.Anemia of chronic disease 7.Hx of cva 8.Postcva and senile dementia 9.MD 10.Urinary incontinence 11.Dyslipidemia 12.HX of falls 13.Severe muscular waisting 14.PAD 15.right gluteal and lbp 16.L/S scoliosis 17.OSIEL. 18. Cachexia 19. Major depression 20.S/P TAVR 21.DM type 2 22.ALOC 23.Decubiti of the sacral and calcaneal region. 24.HX of hypertension, now hypotensive due to of sepsis. Preliminary Cause of Sepsis with multiorgan failure. Hospital Course Was admitted in septic condition, with ALOC, hypotension and with very high probability of descending colon perforation and peritonitis. The patient had wishes not to go to extream measures when condition worsens. Three son's, with whom I discussed the case personally also asked for comfort measures. Hospice care was started.I recived a call that she at ROCIO COHEN MD February 24, 2019 07:08
--- NOTE | 2019-02-24 22:40 | DES ---
DATE OF ADMISSION: 02/22/2019 DATE OF : 02/24/2019 TIME OF : 2239 CAUSE OF : Cardiopulmonary arrest due to sepsis secondary to complicated intra-abdominal infect ion from perforated colon. COMORBID CONDITION: Dementia, end-stage renal disease and history of hypertension. REASON FOR ADMISSION AND HOSPITAL COURSE: The patient is an 83-year-old [place]an female with complex medical history including dementia, CVA, diabetes, hypertension, CKD stage V, on hemodialysis. The patient was brought into hospital on 02/22/2019 at [facility] from residential facility because of recurrent GI bleed and abdominal pain. The patient was recently admitted at [facility] because of GI bleed and was seen by Dr. Hurley at that time. The patient mallory d undergone EGD which had revealed esophageal varices and gastric bleeding. The patient was evaluate d in the ER and was noted to have white count of 26,000. CT of the abdomen showed colon perforation at the junction of sigmoid and descending colon. The patient was [facility] and discussed with the family that patient if survives from surgery, would certainly have a temporary colostomy. The patient's son felt that because of patient's overall physical condition, de mentia and lack of responsiveness and meaningful quality of life, requested palliative care and comfo rt measures. The patient was admitted under hospice on 02/18/2019 for respiratory distress. The pat ient was seen by Dr. [facility] and was treated with broad spectrum IV antibiotic and Dr. Jones saw her from nephrology standpoint. The patient after admission under hospice care was started on m orphine drip which was initially started at 1 mg an hour and was titrated up to 10 mg an hour. The p atient was also started on scopolamine patch and atropine drops for secretion, IV Ativan for terminal anxiety. The patient continued to decline and subsequently on 02/23/2019 at 2240. The jamil ent's family members who were at bedside. AVELINO was notified. Dictated By: ELINA MACKENZIE MD AB/NTS Conf#: [id number] DID#: [id number] CC: ROCIO COHEN MD;*EndCC*
--- NOTE | 2019-02-25 07:49 | RADRPT ---
Vent Rate: 100 bpm RR Interval: 600 msec [place] Interval: 137 msec QRS Duration: 106 msec QT Interval: 387 msec QTC Interval: 500 msec P-R-T [place]: 29 - 14 - 97 degrees Sinus tachycardia. Borderline ST elevation, IVCD Electronically Signed By: Narendra Kwan
== END 2019-02-24 00:47 | disposition expired | DRG 871 ==
LOC: E/R 01:50 → MS1 06:14 → EDBEDREQ 07:50 → EDBEDREQTM 07:53 → EDBEDREQSVC 07:53 → MS1 08:25
PROVIDERS: ADMIT Family Medicine; ATTEND Family Medicine
DX: A41.9 Sepsis, unspecified organism (principal); K65.9 Peritonitis, unspecified; K63.1 Perforation of intestine (nontraumatic); N18.6 End stage renal disease; G93.41 Metabolic encephalopathy; I21.A1 Myocardial infarction type 2; K92.2 Gastrointestinal hemorrhage, unspecified; I13.2 Hypertensive heart and chronic kidney disease with heart failure and with stage 5 chronic kidney disease, or end stage renal disease; E46 Unspecified protein-calorie malnutrition; R64 Cachexia; I50.32 Chronic diastolic (congestive) heart failure; E86.0 Dehydration; D63.1 Anemia in chronic kidney disease; D49.0 Neoplasm of unspecified behavior of digestive system; E11.22 Type 2 diabetes mellitus with diabetic chronic kidney disease; E11.51 Type 2 diabetes mellitus with diabetic peripheral angiopathy without gangrene; E78.5 Hyperlipidemia, unspecified; F03.90 Unspecified dementia, unspecified severity, without behavioral disturbance, psychotic disturbance, mood disturbance, and anxiety; F32.9 Major depressive disorder, single episode, unspecified; G47.33 Obstructive sleep apnea (adult) (pediatric); L89.609 Pressure ulcer of unspecified heel, unspecified stage; L89.159 Pressure ulcer of sacral region, unspecified stage; R65.20 Severe sepsis without septic shock; R94.31 Abnormal electrocardiogram [ECG] [EKG]; R32 Unspecified urinary incontinence; Z66 Do not resuscitate; Z51.5 Encounter for palliative care; Z68.21 Body mass index [BMI] 21.0-21.9, adult; Z91.81 History of falling; Z87.891 Personal history of nicotine dependence; Z95.2 Presence of prosthetic heart valve; Z99.2 Dependence on renal dialysis; Z79.4 Long term (current) use of insulin; Z79.82 Long term (current) use of aspirin
CPT/HCPCS: 36415; 71045; 74176; 80053; 82550; 82553; 83605; 84484; 85025; 85610; 85730; 86850; 86900; 86901; 87081; 93005; 96365; 96375; 96376; C9113; J2060; J2270; J2405; J2543; J3010; J3370; J7030; J7042